=== PATIENT | female | born 1960 | race Caucasian/White ===

== ENCOUNTER → 2016-06-26 | Outpatient (CLI) | payer BC ==
[~2016-06-26] MED LIST: ALBU1AER9 INH; ASPCH81X PO; FLM4 PO; IBUP-103 PO; LSN5 PO; METF-384 PO; MULT-506 PO; OXYC1TAB3 PO; POTA1080 PO; RSTOPS OPB; SIMV-151 PO; ULT50HP PO; ZOLP10TA6 PO
--- NOTE | 2016-06-26 15:33 | DIAGNOSTIC IMAGING REPORT ---
[facility] CLINICAL HISTORY: Ureteral calculus. Recent lithotripsy. COMPARISON STUDY: 12/21/2015 FINDINGS: There is no pathologic bowel dilatation. No urinary tract calculi are visualized. IMPRESSION: No urinary tract calculi are visualized on conventional radiographic imaging Electronically signed by: Reno Quevedo M.D. 06/26/2016 3:31 PM Dictated Date/Time: 06/26/2016 3:30 PM
== END | disposition home or self-care (01) ==
LOC: C.RAD 15:10
PROVIDERS: ATTEND Urology
DX: N20.1 Calculus of ureter (principal)

== ENCOUNTER → 2017-06-26 | Outpatient (CLI) | payer OTHER ==
--- NOTE | 2017-06-26 13:44 | DIAGNOSTIC IMAGING REPORT ---
KUB CLINICAL HISTORY: N20.0 [id number] Ureteral calculus, right COMPARISON STUDY: 06/26/2016 FINDINGS: There is no pathologic bowel dilatation. No urinary tract calculi are visualized on conventional radiographic imaging. IMPRESSION: No urinary tract calculi are visualized. Electronically signed by: Reno Quevedo M.D. 06/26/2017 1:42 PM Dictated Date/Time: 06/26/2017 1:42 PM
== END | disposition home or self-care (01) ==
LOC: C.RAD 13:22
PROVIDERS: ATTEND Urology
DX: N20.2 Calculus of kidney with calculus of ureter (principal)

== ENCOUNTER 2018-07-25 05:47 | Inpatient (IN) ==
--- NOTE | 2018-07-11 12:27 | PAT Medication Instructions ---
Medication Instructions Date of Service July 11, 2018 Home Medications albuterol sulfate [ProAir HFA] 2 puff INHALATION QID PRN aspirin 81 mg PO DAILY buspirone 10 mg PO BID ibuprofen [Advil] 200 mg PO DIRECTED PRN multivitamin 1 tab PO DAILY omega 2-lzy-xye-fish oil [Fish Oil] 1,000 mg PO DAILY simvastatin 20 mg PO HS tramadol 50 mg PO Q6H PRN zolpidem 10 mg PO HS alendronate [Fosamax] 70 mg PO WK calcium citrate-vitamin D3 [Calcium Citrate + D] 1 tab PO DAILY fluticasone propionate 2 spray INTRANASAL DAILY PRN lisinopril 5 mg PO QAM metformin 500 mg PO BID metoprolol succinate 50 mg PO HS omeprazole 40 mg PO QAM peg 400-propylene glycol (PF) [Systane (PF)] 1 drp OPHTHALMIC (EYE) BID PRN ranitidine HCl 300 mg PO HS ASK your surgeon for instructions ibuprofen [Advil] 200 mg PO DIRECTED PRN STOP taking 2 weeks before surgery (or as soon as possible if surgery is within 2 weeks) omega 5-jry-nfb-fish oil [Fish Oil] 1,000 mg PO DAILY DO NOT take the morning of surgery multivitamin 1 tab PO DAILY alendronate [Fosamax] 70 mg PO WK calcium citrate-vitamin D3 [Calcium Citrate + D] 1 tab PO DAILY lisinopril 5 mg PO QAM metformin 500 mg PO BID Take morning of surgery With a small sip of water, OTHERWISE NOTHING TO EAT OR DRINK AFTER MIDNIGHT: albuterol sulfate [ProAir HFA] 2 puff INHALATION QID PRN (use if needed; please bring with you to hospital day of surgery if possible) aspirin 81 mg PO DAILY buspirone 10 mg PO BID tramadol 50 mg PO Q6H PRN (okay to take up to 4 hours prior to surgery if needed) fluticasone propionate 2 spray INTRANASAL DAILY PRN (if needed) omeprazole 40 mg PO QAM peg 400-propylene glycol (PF) [Systane (PF)] 1 drp OPHTHALMIC (EYE) BID PRN (if needed) Take evening before surgery albuterol sulfate [ProAir HFA] 2 puff INHALATION QID PRN (if needed) buspirone 10 mg PO BID simvastatin 20 mg PO HS tramadol 50 mg PO Q6H PRN (if needed) zolpidem 10 mg PO HS metformin 500 mg PO BID metoprolol succinate 50 mg PO HS peg 400-propylene glycol (PF) [Systane (PF)] 1 drp OPHTHALMIC (EYE) BID PRN (if needed) ranitidine HCl 300 mg PO HS Other Notes If you have any questions please call us at [phone] or [phone] or [phone] or [phone]
--- NOTE | 2018-07-12 09:11 | Anesthesiology Consultation ---
Date of Service July 12, 2018 Assessment & Plan (1) Encounter for pre-operative examination: - Check BSG AM DOS - Cardio: 04/05/18: hx sinus tachy and sensed palpitations. Beta jazzy dose in creased. F/U 6 months recommended. - PCP: 07/13/18: "Patient acceptable risk for planned procedure." Chart Review Chart Review: Acceptable Risk for Surgery and Patient seen in Pre Admission Testing History Surgery Operation Date: 07/25/18 11:25 Proposed Procedures p L4-L5 Decompression and Fusion, Spinal Cord Monitoring - Delvin Melo, Height/Weight Height: 4 ft 9 in Weight: 63 kg Allergies Allergy/AdvReac Type Severity Reaction Status Date / Time hydrocodone Allergy Intermediate HIVES Verified 07/10/18 08:47 levofloxacin Allergy Intermediate Hives Verified 07/10/18 08:47 Medications Home Medications Medication Instructions Recorded Confirmed Last Taken albuterol sulfate [ProAir HFA] 2 puff INHALATION QID PRN 02/26/18 07/10/18 Unknown aspirin 81 mg PO DAILY 02/26/18 07/10/18 Unknown buspirone 10 mg PO BID 02/26/18 07/10/18 Unknown ibuprofen [Advil] 200 mg PO DIRECTED PRN 02/26/18 07/10/18 Unknown multivitamin 1 tab PO DAILY 02/26/18 07/10/18 Unknown omega 9-ict-vsq-fish oil [Fish Oil] 1,000 mg PO DAILY 02/26/18 07/10/18 Unknown simvastatin 20 mg PO HS 02/26/18 07/10/18 Unknown tramadol 50 mg PO Q6H PRN 02/26/18 07/10/18 Unknown zolpidem 10 mg PO HS 02/26/18 07/10/18 Unknown alendronate [Fosamax] 70 mg PO WK 07/10/18 07/10/18 Unknown calcium citrate-vitamin D3 1 tab PO DAILY 07/10/18 07/10/18 Unknown [Calcium Citrate + D] fluticasone propionate 2 spray INTRANASAL DAILY PRN 07/10/18 07/10/18 Unknown lisinopril 5 mg PO QAM 07/10/18 07/10/18 Unknown metformin 500 mg PO BID 07/10/18 07/10/18 Unknown metoprolol succinate 50 mg PO HS 07/10/18 07/10/18 Unknown omeprazole 40 mg PO QAM 07/10/18 07/10/18 Unknown peg 400-propylene glycol (PF) 1 drp OPHTHALMIC (EYE) BID PRN 07/10/18 07/10/18 Unknown [Systane (PF)] ranitidine HCl 300 mg PO HS 07/10/18 07/10/18 Unknown Past Medical History Medical History Obstructive sleep apnea CPAP Anxiety Asthma Degenerative disc disease Diabetes mellitus, type 2 NIDDM Dry eye syndrome GERD (gastroesophageal reflux disease) CONTROLLED History of positive PPD S/P [place] 1995/NEGATIVE SUBSEQUENT CXR'S Hypertension Kidney stones Peripheral neuropathy Tachycardia CONTROLLED ON METOPROLOL Exercise / Class Metabolic Activity III < 4 Walking/Shop/Light housework Past Family History Family History Grandmother (Maternal) Diabetes Other Hypertension Past Surgical History Surgical History History of foot surgery LEFT History of hernia repair History of lithotripsy History of carpal tunnel surgery LEFT History of tonsillectomy H/O hysterectomy with oophorectomy History of colonoscopy History of cystoscopy WITH STENT INSERTION History of esophagogastroduodenoscopy (EGD) History of nasal septoplasty History of tooth extraction Past Anesthesia History No Hx of Anesthesia Complications and No Family Hx of Anesthesia Complications History of PONV No Hx of PONV and Hx of Motion Sickness Social History Smoking Status: Never smoker Do You Dip or Chew Tobacco: No Hx Alcohol Use: No Hx Substance Use: No substance use type: does not use Review of Systems Patient denies chest pain, shortness of breath, cough, wheezing, palpitations. Physical Exam Vital Signs VITALS BP 100/64 P 80 TEMP 97.6 SP02 97%RA RESP 16 PHYSICAL Full neck and c-spine range of motion. Full TMJ range of motion. TMD 3 finger breaths Mallampati Score 2 Dentition: intact, veneers on upper front Lungs: clear throughout to auscultation Cardiac: regular rate and rhythm, no murmurs noted Spine: normal Carotid arteries: negative bruit Extremities: no edema Testing Laboratory Results 07/12/18 09:25 07/12/18 09:25 07/12/18 07/12/18 07/12/18 09:00 09:25 09:25 PT 10.0 INR 1.0 APTT 29.3 Hemoglobin A1c Urine Color Yellow Urine Appearance Clear Urine pH 7.0 Ur Specific Kevin 1.006 Urine Protein Negative Urine Glucose (UA) Negative Urine Ketones Negative Urine Nitrite Negative Ur Leukocyte Esterase Negative Blood Type O Positive Antibody Screen NEGATIVE 07/12/18 09:25 PT INR APTT Hemoglobin A1c 6.3 H Urine Color Urine Appearance Urine pH Ur Specific Kevin Urine Protein Urine Glucose (UA) Urine Ketones Urine Nitrite Ur Leukocyte Esterase Blood Type Antibody Screen Electrocardiogram Date: 02/26/18 Findings: + NSR @ (81) Other Testing Chest CTA: 02/26/18: Small bilateral Bochdalek hernias. Minimal subsegmental atelectasis/scarring about the inferior segment lingula. No acute intrathoracic abnormality identified, specifically no acute aortic pathology or evidence of pulmonary thromboembolic disease. No adenopathy or focal airspace consolidation to suggest pneumonia.
[2018-07-12 10:00] LABS: Basophils # (auto) 0.05 K/uL (0-0.2); Basophils % (auto) 0.6 %; Eosinophils # (auto) 0.41 K/uL (0-0.5); Eosinophils % (auto) 4.8 %; Hematocrit (blood only) 39.9 % (37-47); Hemoglobin 13.3 g/dL (12.0-16.0); Immature Granulocytes # (auto) 0.03 K/uL (0.00-0.02); Immature Granulocytes % (auto) 0.4 %; Lymphocytes # (auto) 2.23 K/uL (1.2-3.4); Mean Corpuscular Hgb Conc 33.3 g/dL (32-36); Mean Corpuscular Volume 88.7 fL (80-100); Mean Platelet Volume 9.7 fL (7.4-10.4); Monocytes # (auto) 0.45 K/uL (0.11-0.59); Monocytes % (auto) 5.3 %; Neutrophils % (auto) 62.9 %; Platelet Count 337 K/uL (130-400); RDW Coefficient of Variation 14.8 % (11.5-14.5); RDW Standard Deviation 47.9 fL (36.4-46.3); White Blood Count 8.57 K/uL (4.8-10.8)
[2018-07-12 10:07] LABS: BUN Creatinine Ratio 23.2 (10-20); Calcium 9.5 mg/dl (8.5-10.1); Creatinine Clr Calc Pharmacy 73.8 ml/min; Est GFR (Non-African American) 99.2; Potassium 4.3 mmol/L (3.5-5.1)
[2018-07-12 10:12] LABS: Appearance Urine Clear (Clear); Bilirubin Urine Negative (Negative); Blood Urine Negative (Negative); Color Urine Yellow; Glucose Urine UA Negative (Negative); Ketones Urine Negative (Negative); Leukocyte Esterase Urine Negative (Negative); Nitrite Urine Negative (Negative); Protein Urine Negative (Negative); Specific Gravity Urine 1.006 (1.000-1.030); Urobilinogen Urine Negative (Negative)
[2018-07-12 10:15] LABS: Estimated Average Glucose 134 mg/dl; Hemoglobin A1C 6.3 % (4.5-5.6)
[2018-07-12 10:18] LABS: Partial Thromboplastin Ratio 1.1; Partial Thromboplastin Time 29.3 Seconds (21.0-31.0)
[2018-07-25] MEDS ORDERED: CeleBREX 200 MG CAP PO SCH (06:00)
[2018-07-25] MEDS ORDERED: ACETAMINOPHEN 500 MG TAB PO SCH (06:00)
[2018-07-25] MEDS ORDERED: CEFAZOLIN 1000MG 1,000 MG/7.5 ML SYR IV SCH (06:00)
[2018-07-25] MEDS ORDERED: LR 15ML/HR IV SCH (06:00)
[2018-07-25] MEDS ORDERED: GABAPENTIN 300 MG x 2 PO SCH (06:00)
[2018-07-25] MEDS ORDERED: MIDAZOLAM HCL 1 MG/ML 2ML VIAL ONE (06:45)
[2018-07-25] MEDS ORDERED: fentaNYL citrate 100 MCG/2 ML VIAL ONE ×6 (06:45→10:07)
[2018-07-25] MEDS ORDERED: BACITRACIN INJ 50,000 UNIT VIAL ONE (07:09)
[2018-07-25] MEDS ORDERED: BUPIVACAINE/EPINEPHRINE 0.5% MPF 1:200,000 30 ML VIAL ONE (07:09)
--- NOTE | 2018-07-25 07:31 | History & Physical Bridge Note ---
Date of Service July 25, 2018 History & Physical Bridge Note I have examined the patient, reviewed the History & Physical and in the interval since the performance of the History & Physical I have noted the following changes of clinical significance: no changes noted
--- NOTE | 2018-07-25 07:32 | History & Physical Report ---
Date of Service July 25, 2018 Assessment & Plan (1) Spinal stenosis, lumbar region with neurogenic claudication: L4-L5 decompression and fusion Present on Admission?: Yes History of Present Illness Chief Complaint: Back and leg pain Primary Care Provider: Marco Rodriguez MD This is a 58-year-old female with chronic persistent back and leg pain. After failing extensive course of nonoperative care is here for surgical intervention. Allergies Allergy/AdvReac Type Severity Reaction Status Date / Time hydrocodone Allergy Intermediate HIVES Verified 07/25/18 06:26 levofloxacin Allergy Intermediate Hives Verified 07/25/18 06:26 Home Medications Home Medications Medication Instructions Recorded Confirmed Type albuterol sulfate [ProAir HFA] 2 puff INHALATION QID PRN 02/26/18 07/25/18 History aspirin 81 mg PO DAILY 02/26/18 07/25/18 History buspirone 10 mg PO BID 02/26/18 07/25/18 History ibuprofen [Advil] 200 mg PO DIRECTED PRN 02/26/18 07/25/18 History multivitamin 1 tab PO DAILY 02/26/18 07/10/18 History omega 0-cbs-kkw-fish oil [Fish Oil] 1,000 mg PO DAILY 02/26/18 07/10/18 History simvastatin 20 mg PO HS 02/26/18 07/25/18 History tramadol 50 mg PO Q6H PRN 02/26/18 07/25/18 History zolpidem 10 mg PO HS 02/26/18 07/25/18 History alendronate [Fosamax] 70 mg PO WK 07/10/18 07/10/18 History calcium citrate-vitamin D3 1 tab PO DAILY 07/10/18 07/10/18 History [Calcium Citrate + D] fluticasone propionate 2 spray INTRANASAL DAILY PRN 07/10/18 07/25/18 History lisinopril 5 mg PO QAM 07/10/18 07/25/18 History metformin 500 mg PO BID 07/10/18 07/25/18 History metoprolol succinate 50 mg PO HS 07/10/18 07/25/18 History omeprazole 40 mg PO QAM 07/10/18 07/25/18 History peg 400-propylene glycol (PF) 1 drp OPHTHALMIC (EYE) BID PRN 07/10/18 07/25/18 History [Systane (PF)] ranitidine HCl 300 mg PO HS 07/10/18 07/25/18 History Past Med/Surg History Medical History Obstructive sleep apnea CPAP Anxiety Asthma Degenerative disc disease Diabetes mellitus, type 2 NIDDM Dry eye syndrome GERD (gastroesophageal reflux disease) CONTROLLED History of positive PPD S/P [place] 1995/NEGATIVE SUBSEQUENT CXR'S Hypertension Kidney stones Peripheral neuropathy Tachycardia CONTROLLED ON METOPROLOL Surgical History History of foot surgery LEFT History of hernia repair History of lithotripsy History of carpal tunnel surgery LEFT History of tonsillectomy H/O hysterectomy with oophorectomy History of colonoscopy History of cystoscopy WITH STENT INSERTION History of esophagogastroduodenoscopy (EGD) History of nasal septoplasty History of tooth extraction Family History Grandmother (Maternal) Diabetes Other Hypertension Social History Preferred Language: German Communication Ability: Effective Rock Crusher Required: No Beliefs That Will Affect Care: None Current Living Situation: Alone Other Information That Helps Us Care for You: No Feels Safe at Home: Yes Safety Concerns: Feels Safe At This Time Smoking Status: Never smoker Do You Dip or Chew Tobacco: No Second Hand Exposure: No Tobacco Cessation Education Requested by Patient: No Hx Alcohol Use: No Hx Substance Use: No Physical Exam Vital Signs (Past 24 Hours): Last Vital Signs Temp 36.8 C 07/25/18 06:15 Pulse 98 H 07/25/18 06:15 Resp 18 07/25/18 06:15 BP 139/84 07/25/18 06:15 Pulse Ox 97 07/25/18 06:15 Physical Exam: Patient is alert and oriented neurologically intact.
[2018-07-25] MEDS ORDERED: HYDROmorphone INJ 2 MG/ML SYR/VIAL ONE (08:03)
[2018-07-25] MEDS ORDERED: PROPOFOL IV EMULSION 10 MG/ML 20 ML VIAL IV ONE (08:05)
[2018-07-25] MEDS ORDERED: NEOSTIGMINE METHYLSULFATE 1 MG/ML 10ML VIAL ONE (08:05)
[2018-07-25] MEDS ORDERED: DEXAMETHASONE SOD INJ 4 MG/ML VIAL ONE (08:05)
[2018-07-25] MEDS ORDERED: LIDOCAINE HCL 2% 2 ML VIAL/AMP(20MG/ML) INFIL ONE (08:05)
[2018-07-25] MEDS ORDERED: ONDANSETRON INJ 2 MG/ML 2 ML VIAL ONE (08:05)
[2018-07-25] MEDS ORDERED: GLYCOPYRROLATE 0.2 MG/ML VIAL ONE (08:05)
[2018-07-25] MEDS ORDERED: ROCURONIUM BROMIDE 10 MG/ML 5 ML VIAL ONE (08:05)
[2018-07-25] MEDS ORDERED: LARYING-O-JET KIT (LTA) ONE (08:47)
[2018-07-25] MEDS ORDERED: KETOROLAC 30 MG/ML VIAL ONE ×2 (08:47→09:12)
[2018-07-25] MEDS ORDERED: PHENYLEPHRINE 100MCG/ML 5ML SYR ONE (08:47)
[2018-07-25] MEDS ORDERED: FLOSEAL HEMOSTATIC MATRIX 10ML TOP ONE (09:03)
--- NOTE | 2018-07-25 09:12 | Operative Report ---
Post Operative Report Pre & Post Diagnosis Operation Date: 07/25/18 07:45 Pre-Op Diagnosis: Spinal Stenosis with Neurogenic Claudication Spondylolisthesis L4-5 Post-Op Diagnosis: Same Procedure Operation Date: 07/25/18 07:45 Actual Procedures #1 lumbar decompression with bilateral medial facetectomies and foraminotomies L3-4 L4-5 per #2 posterior spinal fusion L4-5. #3 placement posterior instrumentation L4-5 per #4 interbody fusion L4-5 per #5 placement of peek cage 11 x 22 mm at L4-5 per #6 placement of local autograft in the posterior lateral gutters per #7 placement infuse collagen sponge, mass graft in the posterior lateral gutters and ostial amp and interbody space. Surgeon Delvin Melo DO Lorry Weigher Ana Simpson Estimated Blood Loss 75 Findings Consistent with Post-Op Diagnosis Specimens None Indications This is a 58-year-old female who presents with significant back and bilateral leg pain. After failing extensive course of nonoperative care like to undergo the above-mentioned procedure. Description of Procedure Patient was met with identified and informed consent obtained. She was then taken to the operative suite underwent intubation placed in a prone position on the Bhavik table on top of the Hood frame. All bony prominences well-padded eyes inspected to ensure no external pressure placed upon the peer at this point the lumbar spine was prepped and draped in the normal sterile fashion. Sharp dissection with the assistance of Bovie cautery was performed down to and exposing the lamina and transverse processes of L4 and L5 bilaterally. From a caudal cephalad fashion complete laminectomy of L4 partial laminectomy of L3 was performed including bilateral medial facetectomies and foraminotomies addressing severe stenosis. Obvious instability was also noted. Pedicle screws were then placed in L4 and L5 bilaterally with assistance of fluoroscopy and appropriately size laura placed. By way of a transforaminal approach and left complete discectomy was performed endplates curetted to subcortical bleeding bone and a 11 x 22 mm peek cage filled with osteo-amp bone graft tapped in position. Rods were then compressed locked in final position bilaterally. The transverse processes of L4 and L5 bur to subcortical bleeding bone. Infuse collagen sponge master graft local autograft placed in the posterior lateral gutters. 15 round ENRRIQUE drain inserted. The incision was then closed with 1 Vicryl fascia 2-0 Vicryl substantially for Monocryl for final skin closure. Steri-Strips dressings placed. Patient then awakened taken to PACU stable condition. Please note Ana Simpson present throughout the entire procedure involved in patient positioning complex portions of the surgery and final skin closure. Lastly spinal cord monitoring was utilized throughout the procedure and no changes were noted. I attest to the content of the Intraoperative Record and any orders documented therein. Any exceptions are noted below.
[2018-07-25] MEDS ORDERED: ONDANSETRON INJ 2 MG/ML 2 ML VIAL IV PRN ×2 (09:47→11:02)
[2018-07-25] MEDS ORDERED: ePHEDrine sulfate 50 MG/ML AMP IV PRN (09:47)
[2018-07-25] MEDS ORDERED: ATROPINE SULFATE 0.1 MG/ML 10ML SYR IV PRN (09:47)
[2018-07-25] MEDS ORDERED: PROMETHAZINE HCL 6.25 MG in SODIUM CHLORIDE 0.9% 50 ML IV PRN (09:47)
[2018-07-25] MEDS ORDERED: HYDROmorphone INJ 2 MG/ML SYR/VIAL IV PRN (09:47)
[2018-07-25] MEDS: fentaNYL citrate 100 MCG/2 ML VIAL IV PRN ×4 (09:50→10:17)
--- NOTE | 2018-07-25 09:51 | Fluoroscopy Report ---
FL lumbar spine 2-3V CLINICAL HISTORY: 58 years-old Female presenting with L4-L5 DECOMPRESSION AND FUSION WITH POSSIBLE I NTERBODY. TECHNIQUE: 2 fluoroscopic image(s) recorded as part of an intraoperative procedure. COMPARISON: MRI from 12/15/2014 and plain radiograph from 06/22/2018. FINDINGS/IMPRESSION: There has been interval transpedicular screw not fixation of L4-5 with interbody spacer placement and L4 laminectomy. Normal anatomic alignment. Please see surgical report for further details. Fluoroscopy dosage (mGy): 10.30. Fluoroscopy time: 2.4 seconds. Number or time of high level fluoroscopy (HLF), digital spot, or digital subtraction images: 0. Electronically signed by: Jorge Phillips M.D. 07/25/2018 9:50 AM
[2018-07-25] MEDS ORDERED: HYDROmorphone INJ 1 MG/ML SYRINGE ONE (10:14)
[2018-07-25] MEDS ORDERED: LORazepam 0.5 MG/1 ML VIAL IV STA (10:20)
[2018-07-25] MEDS ORDERED: LORazepam 2 MG/4 ML VIAL ONE (10:23)
--- NOTE | 2018-07-25 10:42 | Anesthesiology Progress Note ---
Date of Service July 25, 2018 Anesthesia Post Procedure Vital Signs Vital Signs: Temp Pulse Pulse Resp BP Pulse Ox 07/25/18 10:25 77 13 143/92 H 100 07/25/18 10:15 79 19 150/90 H 100 07/25/18 10:05 72 21 121/102 H 100 07/25/18 09:55 78 16 145/89 H 100 07/25/18 09:45 76 16 143/90 H 99 07/25/18 09:35 80 16 131/80 100 07/25/18 09:27 36.5 C 84 15 133/81 100 07/25/18 06:15 36.8 C 98 H 18 139/84 97 Pain Intensity Medial Back: Pain Intensity: 6 Transfer of Care Handoff Completed per policy Notes Mental Status: alert / awake / arousable Patient Amnestic to Procedure: Yes Nausea / Vomiting: adequately controlled Pain: adequately controlled Airway Patency, RR, SpO2: stable & adequate BP & HR: stable & adequate Hydration State: stable & adequate Anesthetic Complications: no major complications apparent Notes: Patient had complaints of difficulty taking a full breath in PACU. On evaluation, she seemed quite anxious although lungs were clear, SPO2 100% and BP and HR adequate. She responded very well to a small dose of lorazepam and was dispositioned to the floor.
[2018-07-25] MEDS ORDERED: ACETAMINOPHEN 500 MG TAB PO PRN (11:02)
[2018-07-25] MEDS ORDERED: BISACODYL 10 MG SUPP PR PRN (11:02)
[2018-07-25] MEDS ORDERED: LORazepam 0.5 MG TAB PO PRN (11:02)
[2018-07-25] MEDS ORDERED: LORazepam 0.5 MG/1 ML VIAL IV PRN (11:02)
[2018-07-25] MEDS ORDERED: ALUMINUM/MAGNESIUM SUSP 30 ML UDC PO PRN (11:02)
[2018-07-25] MEDS ORDERED: ACETAMINOPHEN 1,000 MG/100 ML VIAL IV PRN (11:02)
[2018-07-25] MEDS ORDERED: FAMOTIDINE 20 MG TAB PO PRN (11:02)
[2018-07-25] MEDS ORDERED: HYDROmorphone INJ 0.5 MG/0.5 ML SYR IV PRN (11:02)
[2018-07-25] MEDS ORDERED: PROMETHAZINE HCL 12.5 MG in SODIUM CHLORIDE 0.9% 50 ML IV PRN (11:02)
[2018-07-25] MEDS ORDERED: DO NOT ADMINISTER FLU VACCINE PRN (11:02)
[2018-07-25] MEDS ORDERED: MAGNESIUM HYDROXIDE SUSP 30 ML UDC PO PRN (11:02)
[2018-07-25] MEDS ORDERED: DO NOT ADMINISTER PNEUMOCOCCAL VACCINE PRN (11:02)
[2018-07-25] MEDS ORDERED: TRAMADOL HCL 50 MG TABLET PO PRN (11:02)
[2018-07-25] MEDS ORDERED: METOCLOPRAMIDE HCL INJ 5 MG/ML 2 ML VIAL IV PRN (11:02)
[2018-07-25] MEDS ORDERED: SOD PHOSPHATE/SOD BIPHOSPHATE ENEMA 132 ML BTL PR PRN (11:02)
[2018-07-25] MEDS ORDERED: ARTIFICIAL TEARS OP PRN (11:30)
[2018-07-25] MEDS: SODIUM CHLORIDE 0.9% 1000ML 1,000 ML IV SCH (15:07)
[2018-07-25] MEDS: CEFAZOLIN 1000MG 1,000 MG/7.5 ML SYR IV SCH (16:37)
[2018-07-25] MEDS: OXYCODONE HCL IR 5 MG TAB (IMMEDIATE RELEASE) PO PRN (18:39)
[2018-07-25] MEDS: DOCUSATE SODIUM/SENNA 50/8.6MG TAB PO SCH (21:07)
[2018-07-25] MEDS: ZOLPIDEM TARTRATE 10 MG TAB PO SCH (21:07)
[2018-07-25] MEDS: METOPROLOL SUCC 50MG EXT REL TAB PO SCH (21:07)
[2018-07-25] MEDS: SIMVASTATIN 20 MG TAB PO SCH (21:08)
[2018-07-26] MEDS: CEFAZOLIN 1000MG 1,000 MG/7.5 ML SYR IV SCH (00:07)
[2018-07-26] MEDS: SODIUM CHLORIDE 0.9% 1000ML 1,000 ML IV SCH (04:02)
[2018-07-26] MEDS: POLYETHYLENE (MIRALAX) 17 GM PACK PO SCH ×3 (06:20→17:57)
[2018-07-26 06:41] LABS: Basophils # (auto) 0.05 K/uL (0-0.2); Basophils % (auto) 0.4 %; Eosinophils # (auto) 0.18 K/uL (0-0.5); Eosinophils % (auto) 1.5 %; Hematocrit (blood only) 31.3 % (37-47); Hemoglobin 10.5 g/dL (12.0-16.0); Immature Granulocytes # (auto) 0.02 K/uL (0.00-0.02); Immature Granulocytes % (auto) 0.2 %; Lymphocytes # (auto) 2.52 K/uL (1.2-3.4); Lymphocytes % (auto) 20.9 %; Mean Corpuscular Hgb Conc 33.5 g/dL (32-36); Mean Corpuscular Volume 88.9 fL (80-100); Mean Platelet Volume 9.2 fL (7.4-10.4); Monocytes # (auto) 0.79 K/uL (0.11-0.59); Monocytes % (auto) 6.6 %; Neutrophils # (auto) 8.47 K/uL (1.4-6.5); Neutrophils % (auto) 70.4 %; Platelet Count 292 K/uL (130-400); RDW Standard Deviation 49.1 fL (36.4-46.3); Red Blood Count 3.52 M/uL (4.2-5.4); White Blood Count 12.03 K/uL (4.8-10.8)
[2018-07-26 07:11] LABS: Creatinine Clr Calc Pharmacy 72.7 ml/min; Est GFR (African American) 113.9; Est GFR (Non-African American) 98.3; Potassium 3.5 mmol/L (3.5-5.1)
[2018-07-26] MEDS: OXYCODONE HCL IR 5 MG TAB (IMMEDIATE RELEASE) PO PRN ×2 (08:10→16:04)
[2018-07-26] MEDS: PANTOprazole 40 MG TAB PO SCH (08:42)
[2018-07-26] MEDS: ASPIRIN 81 MG ECTAB PO SCH (08:42)
[2018-07-26] MEDS: LISINOPRIL 5 MG TAB PO SCH (08:42)
[2018-07-26] MEDS: CALCIUM 600MG + VIT D 400 IU TAB PO SCH (08:42)
[2018-07-26] MEDS: MULTIVITAMIN TAB PO SCH (08:42)
--- NOTE | 2018-07-26 09:55 | Orthopedic Progress Note ---
Date of Service July 26, 2018 Assessment & Plan (1) Spinal stenosis, lumbar region with neurogenic claudication: This time we will continue physical therapy advance her bowel regimen. arranged home health. Hopefully discharge home Monday. Present on Admission?: Yes Subjective Back pain is controlled leg symptoms markedly improved. Physical Exam Physical Exam: Patient is in the chair at the bedside. Is good strength testing. Appears comfortable. Results & Data Vital Signs (Past 12 Hours) Vital Signs Temp Pulse Pulse Pulse Resp BP BP 07/26/18 07:54 36.5 C 88 16 114/70 07/26/18 03:55 36.7 C 93 H 14 117/71 07/25/18 23:43 36.4 C L 76 14 96/58 L 07/25/18 23:42 36.4 C L Pulse Ox 07/26/18 07:54 97 07/26/18 03:55 99 07/25/18 23:43 96 07/25/18 23:42
--- NOTE | 2018-07-26 10:15 | Anesthesiology Progress Note ---
Date of Service July 26, 2018 Anesthesia Post Procedure Vital Signs Vital Signs: Temp Pulse Pulse Pulse Pulse Resp BP 07/26/18 07:54 36.5 C 88 16 114/70 07/26/18 03:55 36.7 C 93 H 14 117/71 07/25/18 23:43 36.4 C L 76 14 07/25/18 23:42 36.4 C L 07/25/18 20:58 81 07/25/18 19:07 36.6 C 82 17 07/25/18 15:30 36.3 C L 81 16 07/25/18 14:11 36.7 C 89 18 07/25/18 12:41 36.4 C L 88 18 07/25/18 11:56 36.4 C L 86 18 07/25/18 11:10 36.4 C L 82 16 07/25/18 10:45 36.4 C L 68 15 07/25/18 10:35 78 13 07/25/18 10:25 77 13 07/25/18 10:15 79 19 BP Pulse Ox 07/26/18 07:54 97 07/26/18 03:55 99 07/25/18 23:43 96/58 L 96 07/25/18 23:42 07/25/18 20:58 103/63 07/25/18 19:07 107/67 99 07/25/18 15:30 120/78 100 07/25/18 14:11 115/75 100 07/25/18 12:41 104/67 97 07/25/18 11:56 99/62 L 99 07/25/18 11:10 138/87 100 07/25/18 10:45 155/80 H 100 07/25/18 10:35 124/85 100 07/25/18 10:25 143/92 H 100 07/25/18 10:15 150/90 H 100 Pain Intensity Medial Back: Pain Intensity: 5 Notes Mental Status: alert / awake / arousable and participated in evaluation Nausea / Vomiting: adequately controlled Pain: adequately controlled Airway Patency, RR, SpO2: stable & adequate BP & HR: stable & adequate Hydration State: stable & adequate
[2018-07-26] MEDS: SIMVASTATIN 20 MG TAB PO SCH (21:50)
[2018-07-26] MEDS: ZOLPIDEM TARTRATE 10 MG TAB PO SCH (21:51)
[2018-07-26] MEDS: METOPROLOL SUCC 50MG EXT REL TAB PO SCH (21:51)
[2018-07-26] MEDS: DOCUSATE SODIUM/SENNA 50/8.6MG TAB PO SCH (21:51)
[2018-07-27] MEDS: POLYETHYLENE (MIRALAX) 17 GM PACK PO SCH ×4 (00:12→19:07)
[2018-07-27] MEDS: LISINOPRIL 5 MG TAB PO SCH (09:37)
[2018-07-27] MEDS: CALCIUM 600MG + VIT D 400 IU TAB PO SCH (09:37)
[2018-07-27] MEDS: ASPIRIN 81 MG ECTAB PO SCH (09:37)
[2018-07-27] MEDS: PANTOprazole 40 MG TAB PO SCH (09:37)
[2018-07-27] MEDS: MULTIVITAMIN TAB PO SCH (09:37)
--- NOTE | 2018-07-27 10:19 | Orthopedic Progress Note ---
Date of Service July 27, 2018 Assessment & Plan (1) Spinal stenosis, lumbar region with neurogenic claudication: Patient is progressing appropriately. ENRRIQUE drain decreasing probably. We will continue physical therapy hopefully discharge home this weekend. Present on Admission?: Yes Subjective Back pain control leg pain improved Physical Exam Physical Exam: PATIENT is standing and ambulating about the room. Is good strength testing appears comfortable. Results & Data Vital Signs (Past 12 Hours) Vital Signs Temp Pulse Pulse Resp BP BP Pulse Ox 07/27/18 06:53 37.2 C 87 18 107/71 98 07/26/18 23:33 36.6 C 99 H 18 102/69 98
[2018-07-27] MEDS: TRAMADOL HCL 50 MG TABLET PO PRN ×2 (10:32→15:38)
[2018-07-27] MEDS: OXYCODONE HCL IR 5 MG TAB (IMMEDIATE RELEASE) PO PRN ×2 (13:26→22:21)
[2018-07-27] MEDS: ZOLPIDEM TARTRATE 10 MG TAB PO SCH (22:20)
[2018-07-27] MEDS: DOCUSATE SODIUM/SENNA 50/8.6MG TAB PO SCH (22:20)
[2018-07-27] MEDS: SIMVASTATIN 20 MG TAB PO SCH (22:21)
[2018-07-27] MEDS: METOPROLOL SUCC 50MG EXT REL TAB PO SCH (22:21)
[2018-07-28] MEDS: POLYETHYLENE (MIRALAX) 17 GM PACK PO SCH ×5 (00:23→23:55)
[2018-07-28] MEDS: PANTOprazole 40 MG TAB PO SCH (08:57)
[2018-07-28] MEDS: MULTIVITAMIN TAB PO SCH (08:57)
[2018-07-28] MEDS: ASPIRIN 81 MG ECTAB PO SCH (08:58)
[2018-07-28] MEDS: CALCIUM 600MG + VIT D 400 IU TAB PO SCH (08:58)
[2018-07-28] MEDS: LISINOPRIL 5 MG TAB PO SCH (08:59)
--- NOTE | 2018-07-28 09:00 | Orthopedic Progress Note ---
Date of Service July 28, 2018 Assessment & Plan (1) Spinal stenosis, lumbar region with neurogenic claudication: This time we will continue physical therapy. We will change her dressing DC drain today. Anticipate discharge home tomorrow. Present on Admission?: Yes Subjective Patient's back pain is controlled leg symptoms markedly improved. Physical Exam Physical Exam: On exam she is ambulating halls with a walker. Good strength testing. Results & Data Vital Signs (Past 12 Hours) Vital Signs Temp Pulse Pulse Resp BP BP Pulse Ox 07/28/18 08:56 92 H 102/70 07/28/18 06:18 36.7 C 85 16 96/62 L 93 07/27/18 23:05 36.7 C 93 H 16 100/64 93 07/27/18 22:18 101 H 112/78
[2018-07-28] MEDS: OXYCODONE HCL IR 5 MG TAB (IMMEDIATE RELEASE) PO PRN ×3 (09:07→22:04)
[2018-07-28] MEDS: TRAMADOL HCL 50 MG TABLET PO PRN ×2 (15:35→23:56)
[2018-07-28] MEDS: DOCUSATE SODIUM/SENNA 50/8.6MG TAB PO SCH (21:59)
[2018-07-28] MEDS: SIMVASTATIN 20 MG TAB PO SCH (22:00)
[2018-07-28] MEDS: METOPROLOL SUCC 50MG EXT REL TAB PO SCH (22:00)
[2018-07-28] MEDS: ZOLPIDEM TARTRATE 10 MG TAB PO SCH (22:04)
[2018-07-29] MEDS: OXYCODONE HCL IR 5 MG TAB (IMMEDIATE RELEASE) PO PRN ×3 (02:01→13:56)
[2018-07-29] MEDS: POLYETHYLENE (MIRALAX) 17 GM PACK PO SCH ×2 (06:31→14:44)
[2018-07-29] MEDS: CALCIUM 600MG + VIT D 400 IU TAB PO SCH (09:16)
[2018-07-29] MEDS: MULTIVITAMIN TAB PO SCH (09:16)
[2018-07-29] MEDS: PANTOprazole 40 MG TAB PO SCH (09:16)
[2018-07-29] MEDS: ASPIRIN 81 MG ECTAB PO SCH (09:17)
[2018-07-29] MEDS: LISINOPRIL 5 MG TAB PO SCH (09:17)
[2018-07-29] MEDS: TRAMADOL HCL 50 MG TABLET PO PRN (09:22)
--- NOTE | 2018-07-29 11:15 | Discharge Summary ---
Date of Service July 29, 2018 Admission HPI Per Admitting Provider This is a 58-year-old female with chronic persistent back and leg pain. After failing extensive course of nonoperative care is here for surgical intervention. Principal Diagnosis Lumbar spinal stenosis with neurogenic claudication Discharge Data Allergies Allergy/AdvReac Type Severity Reaction Status Date / Time hydrocodone Allergy Intermediate HIVES Verified 07/25/18 06:26 levofloxacin Allergy Intermediate Hives Verified 07/25/18 06:26 Consultations 07/25/18 11:02 Consult Case Management - Discharge Planning Routine Procedures Performed Operation Date: 07/25/18 07:45 Actual Procedures p L4-L5 Decompression and Fusion, Spinal Cord Monitoring(Not Applicable) - Delvin Melo DO Ordered Studies 07/25/18 10:25 FL fluoroscopy <1hr Routine FL lumbar spine 2-3V Routine Hospital Course (1) Spinal stenosis, lumbar region with neurogenic claudication: Patient underwent lumbar decompression fusion tolerated this well was taken to the orthopedic for possibly. Postop day 1 is up and ambulating nicely. Progressive postop day #2. Back pain controlled. ENRRIQUE drain decreasing appropriately. Subsequently discharged home. Discharge orders and instructions from the chart for further review. Total Time Total Time Spent Total Time Spent (In Minutes): 20 minutes Discharge Plan Discharge Items Patient Disposition: Home - Self-Care Reason For Visit: Spinal Instabilities, Lumbar Region Discharge Diagnosis: lumbar stenosis Discharge Goals: Improve function Activity: Per 'Additional Instructions' section Non-emergency contact: Primary Care Provider Call non-emergency contact if: you have any medication questions Follow-up/Referrals: Marco Rodriguez MD [Primary Care Provider] - Diet: Regular Addtl Provider Instructions: ACTIVITY RECOMMENDATIONS: SELF CARE INSTRUCTIONS AFTER CERVICAL FUSIONS 1. No smoking. Smoking drastically decreases the chance of a solid fusion. 2. No bending, lifting more than 5 pounds, or twisting (roll like a log when turning in bed). 3. You may shower 3 days after surgery. Thoroughly dry wound. Do not soak in the tub. 4. Cervical collar: Must be worn at all times including sleeping. You may remove the brace only to bath, eat and if you are sitting in a recliner. 5. Please walk as much as you can for exercise. Gradually increase the distance that you walk as your endurance increases. SPECIAL CARE INSTRUCTIONS: VERY IMPORTANT TO READ AND REVIEW A. Do not take any anti-inflammatory medications (i.e. Indocin, Advil, Aspirin, Naprosyn, Aleve, Motrin, etc.) as these may inhibit the chance of a solid fusion. Tylenol is okay to take. B. Your surgical incision has been closed with a cosmetic suture under the skin that will dissolve in about 6 weeks. In 14 days, you can use a pair of clean scissors and cut the suture that is left outside of the skin at the ends of your incision. C. Complications are uncommon, but please contact us if you have any signs or symptoms of: 1. wound infection (fever higher than 102.5 degrees F, redness, separation of wound, drainage, or increasing pain from the incision) 2. blood clots in legs (pain, swelling, redness and warmth in legs) 3. urinary tract infection (fever higher than 102.5 degrees, burning upon urination or increased frequency of urination) 4. nerve problems (inability to walk on your toes or heels, numbness, loss of bowel or bladder control) 5. any other symptoms that concern you. D. Please call the office at if you have any concerns or questions about your operation or recovery. MANAGING PAIN AFTER SPINAL SURGERY 1. Narcotic medication is intended for short-term use and will be provided for surgical pain. Surgical pain usually lasts for a period of 4-6 weeks. Narcotic medication includes Percocet, Vicodin, Darvocet, Tylenol #3 or Lortab. 2. Longer-term pain is more appropriately treated with non-narcotic medication such as Tylenol ES. 3. Muscle spasm is not appropriately treated with narcotics. Muscle relaxers such as Soma, Flexeril or Skelaxin can be used along with Tylenol ES. 4. Remember that we all live with some "aches and pains". This is not unusual or uncommon after an injury or as we get older. 5. We will provide appropriate medication within the normal guidelines of their prescribed use. We will also be very cautious and aware of potential abuse and extended duration of patients' medication needs. 6. Please allow 2-3 days to process refills. Prescriptions will not be mailed but must be picked up at the office. FOLLOW UP VISIT: Keep your scheduled follow-up appointment. Any questions, please call the office at . ACTIVITY RECOMMENDATIONS: SELF CARE INSTRUCTIONS AFTER THORACIC/LUMBAR FUSIONS 1. You may walk to your tolerance. It is good exercise for your legs and back. Expect some back and intermittent leg aches and pains. 2. You may perform "counter-top" level activities (make a sandwich, sarah with a project, etc.). 3. No bending or lifting of more than 10 pounds or back twisting of any nature (roll like a log when turning in bed). 4. You may ride in a car for 20-30 minutes at a time. No driving until after your first visit with your doctor. 5. Frequent changes of position and restricting sitting to 30 minutes at a time will help limit the amount of back spasms and stiffness you may experience. 6. You may discontinue the use of ambulatory aids (cane, crutches, etc.) once your strength and confidence allow. 7. You may logistical engineer the shower and let water strike your incision when you arrive home at least once daily. Do not take a tub bath, sit in a hot tub or go into a swimming pool until after your first recheck in the office. SPECIAL CARE INSTRUCTIONS: VERY IMPORTANT TO READ AND REVIEW A. Your surgical incision has been closed with a cosmetic suture under the skin that will dissolve in about 6 weeks. In 14 days, you can use a pair of clean scissors and cut the suture that is left outside of the skin at the ends of your incision. 1. The small skin tapes can be removed 7 days after surgery if they have not fallen off by that point. 2. You may keep the wound open to air as much as possible to promote healing after post-op day number 5 unless told otherwise by your doctor. 3. If you think the wound looks like it is becoming infected (redness or worsening drainage) and/or you are experiencing fever, chill or worsening back pain and muscle spasms, contact the office so that we may evaluate you as soon as possible. B. Complications are uncommon, but please contact us if you have any signs or symptoms of: 1. wound infection (fever higher than 102.5 degrees F, redness, separation of wound, drainage, or increasing pain from the incision) 2. blood clots in legs (pain, swelling, redness and warmth in legs) 3. urinary tract infection (fever higher than 102.5 degrees F, burning upon urination or increased frequency of urination) 4. nerve problems (inability to walk on your toes or heels, numbness, loss of bowel or bladder control) 5. any other symptoms that concern you C. Please call the office at if you have any concerns or questions about your operation or recovery. D. No smoking! Smoking drastically decreases the chance of a solid fusion. E. Do not take any anti-inflammatory medications (Indocin, Advil, Motrin, Aspirin, Naprosyn, etc.) as these may inhibit the chance of a solid fusion. Tylenol is okay to take for pain. MANAGING PAIN AFTER SPINAL SURGERY 1. Narcotic medication is intended for short-term use and will be provided for surgical pain. Surgical pain usually lasts for a period of 4-6 weeks. Narcotic medication includes Percocet, Vicodin, Darvocet, Tylenol #3 or Lortab. 2. Longer-term pain is more appropriately treated with non-narcotic medication such as Tylenol ES. 3. Muscle spasm is not appropriately treated with narcotics. Muscle relaxers such as Soma, Flexeril or Skelaxin can be used along with Tylenol ES. 4. Remember that we all live with some "aches and pains". This is not unusual or uncommon after an injury or as we get older. a. Back pain is expected and may include muscle spasms for 4 to 6 weeks after surgery. The pain should gradually improve. If the pain worsens for no apparent reason, please contact the office. b. Intermittent leg pain may also be experienced and should not be concerned about unless it worsens for no apparent reason. If so, please contact the office. 5. We will provide appropriate medication within the normal guidelines of their prescribed use. We will also be very cautious and aware of potential abuse and extended duration of patients' medication needs. a. Pain medications are for your comfort and to assist with sleep and rest so that the tissue can heal. They are not provided in order to return to normal activity and should not be used through the day. To do so or worsening pain at night can result from ongoing tissue damage and development of tolerance to the prescribed medicine. 6. Please allow 2-3 days to process refills. Prescriptions will not be mailed but must be picked up at the office. FOLLOW UP VISIT: Keep your scheduled follow-up appointment. Any questions, please call the office at . Prescriptions: New tramadol 50 mg Tablet 50 mg PO Q4H PRN (Reason: Pain, Moderate) Qty: 20 RF: 0 oxycodone 5 mg Tablet 5 mg PO Q4H PRN (Reason: Pain, Severe) Qty: 20 RF: 0 Continued multivitamin Tablet 1 tab PO DAILY RF: 0 tramadol 50 mg Tablet 50 mg PO Q6H PRN (Reason: Pain) RF: 0 simvastatin 20 mg Tablet 20 mg PO HS RF: 0 buspirone 10 mg Tablet 10 mg PO BID RF: 0 aspirin 81 mg Tablet,Chewable 81 mg PO DAILY RF: 0 zolpidem 10 mg Tablet 10 mg PO HS RF: 0 albuterol sulfate [ProAir HFA] 90 mcg/actuation Hfa Aerosol Inhaler 2 puff INHALATION QID PRN (Reason: Shortness Of Breath) RF: 0 omega 0-mdx-nmw-fish oil [Fish Oil] 1,000 mg (120 mg-180 mg) Capsule 1,000 mg PO DAILY RF: 0 metformin 500 mg Tablet 500 mg PO BID RF: 0 metoprolol succinate 50 mg Tablet Extended Release 24 Hr 50 mg PO HS RF: 0 ranitidine HCl 300 mg Tablet 300 mg PO HS RF: 0 alendronate [Fosamax] 70 mg Tablet 70 mg PO WK RF: 0 omeprazole 40 mg Capsule,Delayed Release(Dr/Ec) 40 mg PO QAM RF: 0 lisinopril 5 mg Tablet 5 mg PO QAM RF: 0 fluticasone propionate 50 mcg/actuation [place],Suspension 2 spray INTRANASAL DAILY PRN (Reason: ALLERGY RELIEF) RF: 0 calcium citrate-vitamin D3 [Calcium Citrate + D] 315-200 mg-unit Tablet 1 tab PO DAILY RF: 0 Systane (PF) 0.4-0.3 % Dropperette 1 drp OPHTHALMIC (EYE) BID PRN (Reason: Dry Eyes) RF: 0 Discontinued ibuprofen [Advil] 200 mg Tablet 200 mg PO DIRECTED PRN (Reason: Pain) RF: 0 Stand-Alone Forms: [facility] Discharge Orders: Discharge Order (Routine); Ordered 07/29/18 Ordered By: Delvin Melo Admission Data Admit Date/Time: 07/25/18 09:16 Attending Provider: Delvin Melo Admit Provider: Delvin Melo Primary Care Provider: Marco Rodriguez Service: Surgical Services
== END 2018-07-29 15:21 | disposition home or self-care (01) | DRG 455 ==
LOC: ASU 05:47 → 3E 09:16

== ENCOUNTER 2022-01-15 10:38 | Inpatient (IN) ==
--- NOTE | 2022-01-15 10:56 | Emergency Department Note ---
History of Present Illness General Chief complaint: Rectal Pain Stated complaint: RECTAL PAIN Time Seen by Provider: 01/15/22 10:54 History of Present Illness Maximum Pain Intensity: 10 This 62-year-old female patient presents to the emergency department with her boyfriend for evaluation of rectal pain. She states that she has had rectal pain for the past 1-2 weeks that is progressively getting worse. She rates the pain now as a sharp and 10/10 pain. She states that it feels like something is inside of her rectum causing a lot of pressure. She is having trouble walking, sitting, or sleeping because of the pain. She has had fevers 100.1 F max mostly in the evening at home along with nausea and vomiting as well. She does not notice any external hemorrhoids or swelling and feels like most of the pain is internal. Denies any hematochezia or melena. She has a history of a rectal abscess in the past and the symptoms feel similar. She states that she has been sitting for long periods of time recently and prolonged sitting on a bike caused her last abscess. She took Advil without improvement of the pain. She was a little constipated last week, but has been moving her bowels well since last week. Stools are now soft and 2-3 times a day. Urinating well without any u rinary symptoms. Denies abdominal pain, chest pain, SOB, or URI symptoms. Denies any known injury or trauma. Last colonoscopy about 8 years ago with history of diverticulosis, but no known polyps and was told to have repeat colo in 10 years. Denies family history of colon polyps, colon cancer, UC, or Crohn's disease, but she states her mom had frequent diverticulitis. Home Medications Medication Instructions Recorded Confirmed Type albuterol sulfate 90 mcg/actuation 2 puff inhalation QID PRN 02/26/18 01/15/22 History aerosol inhaler (ProAir HFA) Shortness Of Breath aspirin 81 mg chewable tablet 81 mg PO DAILY 02/26/18 01/15/22 History multivitamin 1 tab PO DAILY 02/26/18 01/15/22 History omega 5-xej-mym-fish oil 1,000 mg 1,000 mg PO DAILY 02/26/18 01/15/22 History (120 mg-180 mg) capsule (Fish Oil) simvastatin 20 mg tablet 20 mg PO HS 02/26/18 01/15/22 History calcium citrate 315 mg-vitamin D3 1 tab PO DAILY 07/10/18 01/15/22 History 5 mcg (200 unit) tablet (Calcium Citrate + D) fluticasone propionate 50 2 spray intranasal DAILY PRN 07/10/18 01/15/22 History mcg/actuation nasal ALLERGY RELIEF spray,suspension lisinopril 5 mg tablet 5 mg PO QAM 07/10/18 01/15/22 History metformin 500 mg tablet 1,000 mg PO BID 07/10/18 01/15/22 History omeprazole 40 mg capsule,delayed 40 mg PO QAM 07/10/18 01/15/22 History release peg 400-propylene glycol (PF) 0.4 1 drp ophthalmic (eye) BID PRN Dry 07/10/18 01/15/22 History %-0.3 % eye drops in a dropperette Eyes (Systane (PF)) buspirone 10 mg tablet 10 mg PO .COMPLEX 01/10/20 01/15/22 History lifitegrast 5 % eye drops in a 1 drp ophthalmic (eye) BID 01/10/20 01/15/22 History dropperette (Xiidra) magnesium oxide 400 mg (241.3 mg 400 mg PO DAILY 01/10/20 01/15/22 History magnesium) tablet metoprolol succinate 50 mg 50 mg PO BID 01/10/20 01/15/22 History tablet,extended release 24 hr riboflavin (vitamin B2) 400 mg 400 mg PO DAILY 01/10/20 01/15/22 History tablet Allergies Allergy/AdvReac Type Severity Reaction Status Date / Time hydrocodone Allergy Intermediate HIVES Verified 01/15/22 12:52 levofloxacin Allergy Intermediate Hives Verified 01/15/22 12:52 Past Med/Surg History Medical History (Updated 01/15/22 @ 15:52 by Angelica Alvarez PA-C) Allergic rhinitis due to pollen Anxiety Asthma Degenerative disc disease Diabetes mellitus, type 2 NIDDM Dry eye syndrome GERD (gastroesophageal reflux disease) CONTROLLED History of positive PPD S/P TX 1995/NEGATIVE SUBSEQUENT CXR'S Hyperlipidemia Hypertension Kidney stones Obstructive sleep apnea CPAP Osteoporosis Peripheral neuropathy Tachycardia CONTROLLED ON METOPROLOL Surgical History (Updated 01/15/22 @ 14:16 by Trish Jimenez DO) H/O foot surgery H/O hysterectomy with oophorectomy H/O lithotripsy History of colonoscopy History of cystoscopy WITH STENT INSERTION History of esophagogastroduodenoscopy (EGD) History of lumbar fusion L4-5 2018 [place] History of nasal septoplasty History of tonsillectomy History of tooth extraction S/P hernia surgery Family History Grandmother (Maternal) Diabetes Hypertension Mother Hypertension Septicemia Social History Smoking Status: Never smoker Second Hand Exposure: No; Hx Alcohol Use: No Hx Substance Use: No Preferred Language: Welsh Communication Ability: Effective Mineral Technologist Required: No Beliefs That Will Affect Care: None Current Living Situation: Alone Feels Safe at Home: Yes Assistive Devices: Walker Review of Systems See HPI for pertinent positives & negatives. and A total of 10 systems reviewed and were otherwise negative Physical Exam Vital Signs Vital Signs - 24 hr 01/15/22 10:49 01/15/22 11:48 01/15/22 11:50 Temperature 37.1 C Temperature Source Oral Pulse Rate 117 H 93 H 93 H Respiratory Rate 18 27 H 17 Blood Pressure 135/84 122/81 Blood Pressure Mean 101 94 Pulse Oximetry 94 Oxygen Delivery Method Room Air Sepsis Recent Fever Within 48 Hours No Sepsis New/Unexplained Change in Mental Status No Sepsis Action Taken by Nursing No Action Required 01/15/22 12:00 01/15/22 12:21 01/15/22 12:21 Temperature Temperature Source Pulse Rate 86 92 H Respiratory Rate 16 26 H Blood Pressure 121/66 Blood Pressure Mean 84 Pulse Oximetry Oxygen Delivery Method Sepsis Recent Fever Within 48 Hours Sepsis New/Unexplained Change in Mental Status Sepsis Action Taken by Nursing 01/15/22 12:30 01/15/22 12:30 01/15/22 13:00 Temperature Temperature Source Pulse Rate 85 Respiratory Rate 24 Blood Pressure 105/60 99/67 L Blood Pressure Mean 75 77 Pulse Oximetry Oxygen Delivery Method Sepsis Recent Fever Within 48 Hours Sepsis New/Unexplained Change in Mental Status Sepsis Action Taken by Nursing 01/15/22 13:00 01/15/22 13:30 01/15/22 13:30 Temperature Temperature Source Pulse Rate 82 90 Respiratory Rate 16 15 Blood Pressure 118/74 Blood Pressure Mean 88 Pulse Oximetry Oxygen Delivery Method Sepsis Recent Fever Within 48 Hours Sepsis New/Unexplained Change in Mental Status Sepsis Action Taken by Nursing 01/15/22 14:00 01/15/22 14:00 Temperature Temperature Source Pulse Rate 90 Respiratory Rate 24 Blood Pressure 120/76 Blood Pressure Mean 90 Pulse Oximetry 99 Oxygen Delivery Method Sepsis Recent Fever Within 48 Hours Sepsis New/Unexplained Change in Mental Status Sepsis Action Taken by Nursing VITALS: Vitals are noted on the nurse's note and reviewed by myself. GENERAL: 62-year-old female, in no acute distress, non-diaphoretic, well- developed well-nourished. SKIN: See rectal exam. Capillary refill <2 sec. No tenting of the skin. HEAD: Normocephalic, atraumatic. EYES: PERRLA. EOMI. Conjunctivae without injection, sclerae without icterus. NOSE: Patent without discharge. MOUTH: Mucous membranes moist. Uvula midline. Airway patent. NECK: Supple without nuchal rigidity. HEART: Regular rate and rhythm without murmurs gallops or rubs. LUNGS: Clear to auscultation bilaterally without wheezes, rales or rhonchi. No retractions or accessory muscle use. ABDOMEN: Positive bowel sounds x 4. Normal tympanic percussion. Soft, mildly tender to palpation in the suprapubic area, without masses or organomegaly. Miranda sign negative. No guarding or rebound tenderness. No focal RLQ or LLQ tenderness. RECTAL EXAM: Permission to perform the exam. Her boyfriend was present for exam. There is minimal erythema to the left buttocks near the rectum, but no obvious fluctuance, pointing, induration, or discharge. No other external lesions noted. No pilonidal abscess noted. No external hemorrhoids. Normal sphincter tone. There is an enlarged fluctuant area to the left side of the rectum on internal exam about the size of a grape that is tender to palpation. Difficult to determine whether this is an enlarged hemorrhoid or if it is a rectal abscess. No other masses, tears, fistulas, or fissures noted. Stool is brown and Hemoccult negative. MUSCULOSKELETAL: No gross musculoskeletal defects. NEURO: Patient was alert and oriented to person place and time. No focal neurological deficits. Course Administered Medications Discontinued Medications Sodium Chloride (Nss) 500 mls @ 999 mls/hr IV .Q31M ONE Stop: 01/15/22 11:38 Last Infusion: 01/15/22 11:44 Dose: 0 mls/hr Documented By: Admin: 01/15/22 11:24 Dose: 999 mls/hr Documented By: LANRE Piperacillin Sod/Tazobactam Sod (Zosyn) 4.5 gm in 120 mls @ 240 mls/hr IV NOW ONE Stop: 01/15/22 14:41 Last Infusion: 01/15/22 15:05 Dose: 0 mls/hr Documented By: Admin: 01/15/22 14:35 Dose: 240 mls/hr Documented By: LANRE Famotidine (Pepcid 20mg Iv Push) 20 mg in 5 mls @ 2.5 mls/min IV NOW STA Stop: 01/15/22 17:05 Last Admin: 01/15/22 17:23 Dose: 2.5 mls/min Documented By: LANRE Ioversol (Optiray 350 100ml) 88 ml IV ONCE ONE Stop: 01/15/22 12:14 Last Admin: 01/15/22 12:14 Dose: 88 ml Documented By: GABBI Ketorolac Tromethamine (Ketorolac Tromethamine 15 Mg/Ml Vial) 10 mg IV NOW ONE Stop: 01/15/22 11:09 Last Admin: 01/15/22 11:26 Dose: 10 mg Documented By: LANRE Morphine Sulfate (Morphine Sulfate 4 Mg/Ml 1 Ml Carp\Vial) 4 mg IV NOW STA Stop: 01/15/22 13:46 Last Admin: 01/15/22 14:04 Dose: 4 mg Documented By: AM Ondansetron HCl (Ondansetron Inj 2 Mg/Ml 2 Ml Vial) 4 mg IV NOW STA Stop: 01/15/22 13:46 Last Admin: 01/15/22 14:03 Dose: 4 mg Documented By: AM Potassium Chloride (Potassium Chloride Crtab 20 Meq Tabcr) 40 meq PO NOW STA Stop: 01/15/22 15:12 Last Admin: 01/15/22 15:21 Dose: 40 meq Documented By: LANRE Medical Decision Making Differential Diagnosis Differential diagnosis includes cellulitis, rectal abscess, perirectal abscess, enlarged hemorrhoid, diverticulitis, or others. Laboratory Data Attestation: I reviewed the patient's lab results. Result diagrams: 01/15/22 11:20 01/15/22 11:20 Lab Results 01/15/22 01/15/22 01/15/22 Range/Units 11:20 11:20 14:15 WBC 14.53 H (4.8-10.8) K/ul RBC 4.20 (3.93-5.22) M/uL Hgb 12.3 (12.0-16.0) g/dl Hct 36.0 (34.1-44.9) % MCV 85.7 (80.0-100.0) fL MCH 29.3 (25.0-34.0) pg MCHC 34.2 (32.0-36.0) g/dL RDW Std Deviation 45.7 (36.4-46.3) fL RDW Coeff of Maryann 14.6 H (11.5-14.5) % Plt Count 373 (130-400) K/uL MPV 9.6 (9.4-12.3) fL Immature Gran % (Auto) 0.8 % Neut % (Auto) 71.4 % Lymph % (Auto) 19.4 % [place] % (Auto) 5.3 % Eos % (Auto) 2.4 % Baso % (Auto) 0.7 % Neut # (Auto) 10.37 H (1.4-6.5) K/uL Lymph # (Auto) 2.82 (1.2-3.4) K/uL [place] # (Auto) 0.77 (0.24-0.82) K/uL Eos # (Auto) 0.35 (0-0.50) K/uL Baso # (Auto) 0.10 (0-0.2) K/uL Immature Gran # (Auto) 0.12 H (0.00-0.02) K/uL Sodium 133 L (136-145) mmol/L Potassium 3.7 (3.5-5.1) mmol/L Chloride 100 (98-107) mmol/L Carbon Dioxide 23 (21-32) mmol/L Anion Gap 10 (3-11) BUN 9 (6-23) mg/dl Creatinine 0.60 (0.6-1.2) mg/dl Est Cr Clr Drug Dosing Not Reportable Est GFR ( Amer) 114.8 ml/min Est GFR (Non-Af Amer) 99.1 ml/min BUN/Creatinine Ratio 15.0 (10-20) Glucose 128 H (70-99(Fasting)) mg/dl Calcium 9.6 (8.5-10.1) mg/dl Total Bilirubin 0.9 (0.2-1.0) mg/dl AST 16 (13-39) U/L ALT 21 (7-52) U/L Alkaline Phosphatase 118 H (34-104) U/L Total Protein 7.2 (6.0-8.3) gm/dl Albumin 4.4 (3.4-5.0) gm/dl Globulin 2.8 (2.5-4.0) gm/dl Albumin/Globulin Ratio 1.6 (0.9-2) SARS-CoV-2, RNA, NAAT NEGATIVE (NEGATIVE) Imaging Data Radiologist's Impression: Pelvis CT 01/15/22 11:08 CT SCAN OF THE PELVIS WITH IV CONTRAST CLINICAL HISTORY: Rectal pain and swelling. Reported history of perianal abscess. COMPARISON STUDY: Pelvic CT dated 02/26/2018. TECHNIQUE: Following the IV administration of 88 cc of Optiray 350, CT scan of the pelvis is performed from the pelvic inlet to the proximal femora. Images reviewed in the axial, sagittal, and coronal planes. IV contrast was administered without complication. A dose lowering technique was utilized adhering to the principles of ALARA. CT DOSE: 372.13 mGy.cm FINDINGS: The bladder is distended but otherwise normal in appearance. The uterus is surgically absent. No adnexal lesion is seen. There is no pelvic sidewall or inguinal lymphadenopathy. The imaged loops of small bowel and colon show no evidence of obstruction. There is mild diverticulosis of the imaged colon without CT evidence of acute diverticulitis. A normal appendix is seen in the right lower quadrant. No intraperitoneal free air or free fluid is seen in the pelvis. There is evidence of previous ventral hernia repair. There is inflammation around the perianal soft tissues, greatest posteriorly. There is a thick-walled peripherally enhancing perianal fluid collection seen posteriorly at the 12:00 position. This measures 3.0 x 3.1 x 2.0 cm in aggregate dimension as seen on axial image #555. This is located just below the levator musculature. The skeletal structures appear intact. No lytic or blastic lesion is seen. The regional musculature is normal and symmetric. IMPRESSION: There is a 3.1 cm perianal abscess at the 12:00 position with surrounding cellulitis as detailed above. ACT 112: Negative or not required by law. Electronically signed by: David Cote M.D. 01/15/2022 1:45 PM MDM Narrative I examined the patient. Rectal exam showed mild erythema to the left buttocks near the rectum, but no obvious external abscess or infection. She does have an enlarged fluctuant area to the left side of the rectum on internal exam that is difficult to determine whether it is a true abscess or just an enlarged hemorrhoid. Hemoccult was negative. An IV lock was placed and labs were drawn. She was given normal saline solution 500 mL bolus. She was given Toradol 10 mg IV for pain. But continued with pain. The patient states that hydrocodone is listed in her medication allergies, but she is not sure she is actually truly allergic to it because she had a reaction at the same time she had levofloxacin. She has had morphine in the past without problems. She was then given morphine 4 mg IV and Zofran 4 mg IV for additional pain relief. White blood cell count elevated at 14.53. Sodium 133, glucose 128, alk phos 118. COVID was negative. CT scan of the pelvis with IV contrast showed a 3.1 cm perianal abscess at the 12 o'clock position with surrounding cellulitis. I spoke with Dr. Watkins of surgery who felt the patient's abscess might still be small enough to respond to IV antibiotics. He recommended inpatient admission for IV antibiotics and then he would evaluate the patient tomorrow to determine if drainage was needed at that time. I spoke with the on-call hospitalist who agreed to admit the patient for further evaluation and treatment. Please refer to their dictation for further details. The patient was given Zosyn 4.5 g IV. The patient was stable at the time of transfer of care. Impression & Plan Perianal abscess Discharge Plan Visit Data Chief Complaint: Rectal Pain Stated Complaint: RECTAL PAIN ED Provider: Desmond Glaser ED Midlevel Provider: Angelica Alvarez Discharge Problem: Perianal abscess Patient Disposition: Admitted As Inpatient Condition: Good Discharge Instructions Interventions: ED Discharge Assessment Last Done: 01/15/22 18:10
[2022-01-15] MEDS ORDERED: SODIUM CHLORIDE 0.9% 500 ML IV ONE (11:08)
[2022-01-15] MEDS ORDERED: KETOROLAC TROMETHAMINE 15 MG/ML VIAL IV ONE (11:08)
[2022-01-15 11:34] LABS: Basophils % (auto) 0.7 %; Eosinophils # (auto) 0.35 K/uL (0-0.50); Eosinophils % (auto) 2.4 %; Hemoglobin 12.3 g/dl (12.0-16.0); Immature Granulocytes # (auto) 0.12 K/uL (0.00-0.02); Immature Granulocytes % (auto) 0.8 %; Lymphocytes # (auto) 2.82 K/uL (1.2-3.4); Lymphocytes % (auto) 19.4 %; Mean Corpuscular Hemoglobin 29.3 pg (25.0-34.0); Mean Corpuscular Hgb Conc 34.2 g/dL (32.0-36.0); Mean Corpuscular Volume 85.7 fL (80.0-100.0); Mean Platelet Volume 9.6 fL (9.4-12.3); Monocytes # (auto) 0.77 K/uL (0.24-0.82); Monocytes % (auto) 5.3 %; Neutrophils # (auto) 10.37 K/uL (1.4-6.5); Neutrophils % (auto) 71.4 %; Platelet Count 373 K/uL (130-400); RDW Coefficient of Variation 14.6 % (11.5-14.5); RDW Standard Deviation 45.7 fL (36.4-46.3); White Blood Count 14.53 K/ul (4.8-10.8)
[2022-01-15 11:57] LABS: Alanine Aminotransferase 21 U/L (7-52); Albumin Globulin Ratio 1.6 (0.9-2); Albumin Level 4.4 gm/dl (3.4-5.0); Alkaline Phosphatase 118 U/L (34-104); Anion Gap 10 (3-11); Aspartate Aminotransferase 16 U/L (13-39); Bilirubin,Total 0.9 mg/dl (0.2-1.0); Blood Urea Nitrogen 9 mg/dl (6-23); Calcium 9.6 mg/dl (8.5-10.1); Carbon Dioxide 23 mmol/L (21-32); Chloride 100 mmol/L (98-107); Est GFR (African American) 114.8 ml/min; Est GFR (Non-African American) 99.1 ml/min; Globulin 2.8 gm/dl (2.5-4.0); Glucose 128 mg/dl (70-99(Fasting)); Potassium 3.7 mmol/L (3.5-5.1); Sodium 133 mmol/L (136-145); Total Protein 7.2 gm/dl (6.0-8.3)
[2022-01-15] MEDS ORDERED: OPTIRAY 350 100ml IV ONE (12:13)
[2022-01-15] MEDS ORDERED: MoRPHine SULFATE 4 MG/ML 1 ML CARP\\VIAL IV STA (13:45)
[2022-01-15] MEDS ORDERED: ONDANSETRON INJ 2 MG/ML 2 ML VIAL IV STA (13:45)
--- NOTE | 2022-01-15 13:46 | CT Scan Report ---
CT SCAN OF THE PELVIS WITH IV CONTRAST CLINICAL HISTORY: Rectal pain and swelling. Reported history of perianal abscess. COMPARISON STUDY: Pelvic CT dated 02/26/2018. TECHNIQUE: Following the IV administration of 88 cc of Optiray 350, CT scan of the pelvis is performe d from the pelvic inlet to the proximal femora. Images reviewed in the axial, sagittal, and coronal p lanes. IV contrast was administered without complication. A dose lowering technique was utilized adhe ring to the principles of ALARA. CT DOSE: 372.13 mGy.cm FINDINGS: The bladder is distended but otherwise normal in appearance. The uterus is surgically absent. No adne xal lesion is seen. There is no pelvic sidewall or inguinal lymphadenopathy. The imaged loops of smal l bowel and colon show no evidence of obstruction. There is mild diverticulosis of the imaged colon w ithout CT evidence of acute diverticulitis. A normal appendix is seen in the right lower quadrant. No intraperitoneal free air or free fluid is seen in the pelvis. There is evidence of previous ventral hernia repair. There is inflammation around the perianal soft tissues, greatest posteriorly. There is a thick-walled peripherally enhancing perianal fluid collection seen posteriorly at the 12:00 positi on. This measures 3.0 x 3.1 x 2.0 cm in aggregate dimension as seen on axial image #555. This is loca sharita just below the levator musculature. The skeletal structures appear intact. No lytic or blastic le bella is seen. The regional musculature is normal and symmetric. IMPRESSION: There is a 3.1 cm perianal abscess at the 12:00 position with surrounding cellulitis as d etailed above. ACT 112: Negative or not required by law. Electronically signed by: David Cote M.D. 01/15/2022 1:45 PM
[2022-01-15] MEDS ORDERED: PIPERACILLIN/TAZOBACTAM 4.5 GM/120 ML BAG IV ONE (14:12)
--- NOTE | 2022-01-15 14:17 | Anesthesiology Consultation ---
Date of Service January 15, 2022 Assessment & Plan Chart Review Chart Review: Acceptable Risk for Surgery Consults Requested none ASA ASA3 Proposed Anesthesia Anesthesia Type: General Risk / Benefits Reviewed With: PT / POA / Parent / Guardian, Accepts Plan and Informed Consent Obtained History Surgery Operation Date: 01/16/22 11:00 Proposed Procedures p Arlene Rectal Abscess Incison and Drainage - Julio Watkins MD Height/Weight Weight: 63.3 kg Allergies Allergy/AdvReac Type Severity Reaction Status Date / Time hydrocodone Allergy Intermediate HIVES Verified 01/15/22 12:52 levofloxacin Allergy Intermediate Hives Verified 01/15/22 12:52 Medications Home Medications Medication Instructions Recorded Confirmed Last Taken albuterol sulfate 90 mcg/actuation 2 puff inhalation QID PRN 02/26/18 01/15/22 Unknown aerosol inhaler (ProAir HFA) Shortness Of Breath aspirin 81 mg chewable tablet 81 mg PO DAILY 02/26/18 01/15/22 07/18/18 22:00 multivitamin 1 tab PO DAILY 02/26/18 01/15/22 07/18/18 22:00 omega 4-prp-bml-fish oil 1,000 mg 1,000 mg PO DAILY 02/26/18 01/15/22 07/18/18 22:00 (120 mg-180 mg) capsule (Fish Oil) simvastatin 20 mg tablet 20 mg PO HS 02/26/18 01/15/22 07/22/18 22:00 calcium citrate 315 mg-vitamin D3 1 tab PO DAILY 07/10/18 01/15/22 07/18/18 22:00 5 mcg (200 unit) tablet (Calcium Citrate + D) fluticasone propionate 50 2 spray intranasal DAILY PRN 07/10/18 01/15/22 07/18/18 22:00 mcg/actuation nasal ALLERGY RELIEF spray,suspension lisinopril 5 mg tablet 5 mg PO QAM 07/10/18 01/15/22 07/22/18 09:00 metformin 500 mg tablet 1,000 mg PO BID 07/10/18 01/15/22 07/21/18 22:00 omeprazole 40 mg capsule,delayed 40 mg PO QAM 07/10/18 01/15/22 07/25/18 05:15 release peg 400-propylene glycol (PF) 0.4 1 drp ophthalmic (eye) BID PRN Dry 07/10/18 01/15/22 07/24/18 09:00 %-0.3 % eye drops in a dropperette Eyes (Systane (PF)) buspirone 10 mg tablet 10 mg PO .COMPLEX 01/10/20 01/15/22 Unknown lifitegrast 5 % eye drops in a 1 drp ophthalmic (eye) BID 01/10/20 01/15/22 Unknown dropperette (Xiidra) magnesium oxide 400 mg (241.3 mg 400 mg PO DAILY 01/10/20 01/15/22 Unknown magnesium) tablet metoprolol succinate 50 mg 50 mg PO BID 01/10/20 01/15/22 Unknown tablet,extended release 24 hr riboflavin (vitamin B2) 400 mg 400 mg PO DAILY 01/10/20 01/15/22 Unknown tablet Active Medications Generic Name Dose Route Start Last Admin Trade Name Freq PRN Reason Stop Dose Admin Acetaminophen 650 mg 01/15/22 15:20 01/15/22 18:47 Acetaminophen 325 Mg Tab PO 02/14/22 15:19 650 mg Q4H PRN Administration Pain or Fever Buspirone HCl 10 mg 01/16/22 09:00 01/16/22 08:00 Buspirone 5 Mg Tab PO 02/15/22 08:59 10 mg QAM [place] Administration Buspirone HCl 20 mg 01/15/22 21:00 01/15/22 20:44 Buspirone 5 Mg Tab PO 02/14/22 20:59 20 mg HS [place] Administration Piperacillin Sod/Tazobactam 115 mls @ 28.75 mls/hr 01/15/22 19:30 01/16/22 08:02 Sod 3.375 gm/ Dextrose IV 01/17/22 19:29 Infused Q8H [place] Infusion Protocol Insulin Aspart 0 units 01/16/22 00:00 01/16/22 06:01 Insulin Aspart Per Unit SC 02/15/22 00:00 Not Given Q6 [place] Metoprolol Succinate 50 mg 01/15/22 21:00 01/16/22 08:00 Metoprolol Succ 50mg Ext Rel Tab PO 02/14/22 20:59 50 mg BID [place] Administration Miscellaneous 1 each 01/16/22 00:00 01/16/22 07:55 Lifitegrast [Xiidra] 5 % ~ Order Awaiting Action N/A 02/15/22 00:00 Not Given QS [place] Morphine Sulfate 3 mg 01/15/22 16:27 01/16/22 06:05 Morphine Sulfate 4 Mg/Ml 1 Ml Carp\Vial IV 01/29/22 16:26 3 mg Q3H PRN Administration Pain Simvastatin 20 mg 01/15/22 21:00 01/15/22 20:43 Simvastatin 20 Mg Tab PO 02/14/22 20:59 20 mg HS [place] Administration NPO Date Last Intake of Fluids: 01/15/22 Time Last Intake of Fluids: 18:30 Date Last Intake of Solids: 01/14/22 Time Last Intake of Solids: 20:00 Past Medical History Medical History Allergic rhinitis due to pollen Anxiety Asthma Degenerative disc disease Diabetes mellitus, type 2 NIDDM Dry eye syndrome GERD (gastroesophageal reflux disease) CONTROLLED History of positive PPD S/P [place] 1995/NEGATIVE SUBSEQUENT CXR'S Hyperlipidemia Hypertension Kidney stones Obstructive sleep apnea CPAP Osteoporosis Peripheral neuropathy Tachycardia CONTROLLED ON METOPROLOL Exercise / Class Metabolic Activity II 4-5 Yardwork/Stairs/Walk up hill Past Family History Family History Grandmother (Maternal) Diabetes Hypertension Mother Hypertension Septicemia Past Surgical History Surgical History H/O foot surgery H/O hysterectomy with oophorectomy H/O lithotripsy History of colonoscopy History of cystoscopy WITH STENT INSERTION History of esophagogastroduodenoscopy (EGD) History of lumbar fusion L4-5 2018 [place] History of nasal septoplasty History of tonsillectomy History of tooth extraction S/P hernia surgery Past Anesthesia History No Hx of Anesthesia Complications and No Family Hx of Anesthesia Complications History of PONV No Hx of PONV and No Hx of Motion Sickness Social History Smoking Status: Never smoker Hx Alcohol Use: No Hx Substance Use: No substance use type: does not use Physical Exam Vital Signs Last Vital Signs Temp 37.2 C 01/16/22 08:19 Pulse 91 H 01/16/22 08:19 Resp 20 01/16/22 08:19 BP 108/72 01/16/22 08:19 Pulse Ox 97 01/16/22 08:19 O2 Del Method 01/16/22 08:19 ENMT Mouth: no TMJ abnormality Thyromental Distance: > or= 3.5 Finger Breadths Mallampati Class: II Neck normal visual inspection and trachea midline; neck extension not limited Respiratory normal respiratory effort Auscultation: lungs clear to auscultation bilaterally Cardiovascular Rate/Rhythm: regular rate and regular rhythm Heart Sounds: no murmur Musculoskeletal Spine: normal cervical ROM Extremities: full ROM of extremities Neurologic moves all extremities Psychiatric Orientation: alert and oriented x 3 Testing Laboratory Results 01/16/22 06:47 01/16/22 06:47 01/16/22 01/16/22 01/15/22 05:35 00:12 23:34 POC Glucose 113 H 123 H 124 H Electrocardiogram Date: 01/15/22 Findings: + NSR @ (96) pending
--- NOTE | 2022-01-15 15:07 | History & Physical Report ---
Date of Service January 15, 2022 Assessment & Plan (1) Perirectal abscess: Plan: - CT pelvis - 3.1 cm perianal abscess at the 12:00 position with surrounding cellulitis as detailed above. - fever noted at home, pain in perrectal area in last 1-2 weeks - surgery contacted by ED, recommend IV Abx and pt was started on zosyn - possible I&D tmrw, keep pt NPO after MN -Patient also reported fever, chills at home, will obtain blood cultures and will follow results -Continue to closely monitor (2) DM type 2 (diabetes mellitus, type 2): Plan: A1c 6.3% in 02/2021 - hold home metformin - cont. to monitor blood glc level while inpt (3) Hyperlipidemia: Plan: - cont. home on statin (4) Hypertension: Plan: - hold home lisinopril for now, cont. metoprolol 50 bid Anxiety - cont. home Buspr DVT ppx: SCDs, plan for poss. procedure tmrw History of Present Illness Chief Complaint: Rectal pain Primary Care Provider: Marco Rodriguez MD 62-year-old female with hypertension, diabetes mellitus type 2, hyperlipidemia, MORIS, history of asthma, who presents with rectal pain. Patient reports she had similar episode years ago, when she had an abscess like this. At that time it was associated with her riding a bicycle for prolonged amount of time. This time she reports that she was sitting a lot and then she noticed pain in perirectal area. Pain has been worsening for the past 1 to 2 weeks. She also reports chills, night sweats, and fever at home of 100.1 Fahrenheit. Denies any chest pain or shortness of breath. Reports that she has asthma, however only very occasionally needs to use her inhalers. Denies any abdominal pain, nausea vomiting, denies diarrhea or constipation. No blood in the stool. Denies dysuria. In the ED, she was examined and CT pelvis was obtained which showed perianal abscess of 3 cm. ED contacted general surgery, and it was recommended that patient was started on IV antibiotics and made n.p.o. after midnight. Possible I&D tomorrow. On my evaluation, patient is overall in no acute distress, but continues to have pain. Otherwise denies any other complaints. Allergies Allergy/AdvReac Type Severity Reaction Status Date / Time hydrocodone Allergy Intermediate HIVES Verified 01/15/22 12:52 levofloxacin Allergy Intermediate Hives Verified 01/15/22 12:52 Home Medications Medication Instructions Recorded Confirmed Type albuterol sulfate 90 mcg/actuation 2 puff inhalation QID PRN 02/26/18 01/15/22 History aerosol inhaler (ProAir HFA) Shortness Of Breath aspirin 81 mg chewable tablet 81 mg PO DAILY 02/26/18 01/15/22 History multivitamin 1 tab PO DAILY 02/26/18 01/15/22 History omega 6-yvj-uwu-fish oil 1,000 mg 1,000 mg PO DAILY 02/26/18 01/15/22 History (120 mg-180 mg) capsule (Fish Oil) simvastatin 20 mg tablet 20 mg PO HS 02/26/18 01/15/22 History calcium citrate 315 mg-vitamin D3 1 tab PO DAILY 07/10/18 01/15/22 History 5 mcg (200 unit) tablet (Calcium Citrate + D) fluticasone propionate 50 2 spray intranasal DAILY PRN 07/10/18 01/15/22 History mcg/actuation nasal ALLERGY RELIEF spray,suspension lisinopril 5 mg tablet 5 mg PO QAM 07/10/18 01/15/22 History metformin 500 mg tablet 1,000 mg PO BID 07/10/18 01/15/22 History omeprazole 40 mg capsule,delayed 40 mg PO QAM 07/10/18 01/15/22 History release peg 400-propylene glycol (PF) 0.4 1 drp ophthalmic (eye) BID PRN Dry 07/10/18 01/15/22 History %-0.3 % eye drops in a dropperette Eyes (Systane (PF)) buspirone 10 mg tablet 10 mg PO .COMPLEX 01/10/20 01/15/22 History lifitegrast 5 % eye drops in a 1 drp ophthalmic (eye) BID 01/10/20 01/15/22 History dropperette (Xiidra) magnesium oxide 400 mg (241.3 mg 400 mg PO DAILY 01/10/20 01/15/22 History magnesium) tablet metoprolol succinate 50 mg 50 mg PO BID 01/10/20 01/15/22 History tablet,extended release 24 hr riboflavin (vitamin B2) 400 mg 400 mg PO DAILY 01/10/20 01/15/22 History tablet Past Med/Surg History Medical History (Updated 01/15/22 @ 15:52 by Angelica Alvarez PA-C) Allergic rhinitis due to pollen Anxiety Asthma Degenerative disc disease Diabetes mellitus, type 2 NIDDM Dry eye syndrome GERD (gastroesophageal reflux disease) CONTROLLED History of positive PPD S/P TX 1995/NEGATIVE SUBSEQUENT CXR'S Hyperlipidemia Hypertension Kidney stones Obstructive sleep apnea CPAP Osteoporosis Peripheral neuropathy Tachycardia CONTROLLED ON METOPROLOL Surgical History (Updated 01/15/22 @ 14:16 by Trish Jimenez DO) H/O foot surgery H/O hysterectomy with oophorectomy H/O lithotripsy History of colonoscopy History of cystoscopy WITH STENT INSERTION History of esophagogastroduodenoscopy (EGD) History of lumbar fusion L4-5 2018 [facility] History of nasal septoplasty History of tonsillectomy History of tooth extraction S/P hernia surgery Family History Grandmother (Maternal) Diabetes Hypertension Mother Hypertension Septicemia Social History Smoking Status: Never smoker Second Hand Exposure: No; Hx Alcohol Use: No Hx Substance Use: No Preferred Language: Macanese Communication Ability: Effective Dewaxer Required: No Beliefs That Will Affect Care: None Current Living Situation: Alone Feels Safe at Home: Yes Assistive Devices: Walker Review of Systems Review of Systems: All systems reviewed & are unremarkable except as noted in HPI & below Physical Exam Constitutional: WD/WN, vitals as above Eyes: PERRL, conjunctivae normal, anicteric sclerae ENMT: external ear and nose normal, oropharynx normal Neck: trachea midline, no thyromegaly Respiratory: normal respiratory effort, lungs clear to auscultation Cardiovascular: RRR, no murmur, no edema Chest (Breasts): Chest: normal inspection of chest Gastrointestinal (Abdomen): normal bowel sounds, soft, nontender, no hepatosplenomegaly Musculoskeletal: no cyanosis or clubbing, extremities motor strength 5/5 Skin: no rashes, warm and dry Neurologic: PERRL, EOMI, accommodation nl, no face palsy, no dysarthria Psychiatric: A+Ox3, euthymic affect Lymphatic: no lymphedema Results & Data Results & Data ([facility]) Vital Signs (Past 12 Hours) Vital Signs Temp Pulse Resp BP Pulse Ox O2 Del Method 01/15/22 14:00 90 24 99 01/15/22 14:00 120/76 01/15/22 13:30 90 15 01/15/22 13:30 118/74 01/15/22 13:00 82 16 01/15/22 13:00 99/67 L 01/15/22 12:30 85 24 01/15/22 12:30 105/60 01/15/22 12:21 121/66 01/15/22 12:21 92 H 26 H 01/15/22 12:00 86 16 01/15/22 11:50 93 H 17 122/81 01/15/22 11:48 93 H 27 H 01/15/22 10:49 37.1 C 117 H 18 135/84 94 Room Air Laboratory Results 01/15/22 01/15/22 01/15/22 Range/Units 14:15 11:20 11:20 WBC 14.53 H (4.8-10.8) K/ul RBC 4.20 (3.93-5.22) M/uL Hgb 12.3 (12.0-16.0) g/dl Hct 36.0 (34.1-44.9) % MCV 85.7 (80.0-100.0) fL MCH 29.3 (25.0-34.0) pg MCHC 34.2 (32.0-36.0) g/dL RDW Std Deviation 45.7 (36.4-46.3) fL RDW Coeff of Maryann 14.6 H (11.5-14.5) % Plt Count 373 (130-400) K/uL MPV 9.6 (9.4-12.3) fL Immature Gran % (Auto) 0.8 % Neut % (Auto) 71.4 % Lymph % (Auto) 19.4 % [place] % (Auto) 5.3 % Eos % (Auto) 2.4 % Baso % (Auto) 0.7 % Neut # (Auto) 10.37 H (1.4-6.5) K/uL Lymph # (Auto) 2.82 (1.2-3.4) K/uL [place] # (Auto) 0.77 (0.24-0.82) K/uL Eos # (Auto) 0.35 (0-0.50) K/uL Baso # (Auto) 0.10 (0-0.2) K/uL Immature Gran # (Auto) 0.12 H (0.00-0.02) K/uL Sodium 133 L (136-145) mmol/L Potassium 3.7 (3.5-5.1) mmol/L Chloride 100 (98-107) mmol/L Carbon Dioxide 23 (21-32) mmol/L Anion Gap 10 (3-11) BUN 9 (6-23) mg/dl Creatinine 0.60 (0.6-1.2) mg/dl Est Cr Clr Drug Dosing Not Reportable Est GFR ( Amer) 114.8 ml/min Est GFR (Non-Af Amer) 99.1 ml/min BUN/Creatinine Ratio 15.0 (10-20) Glucose 128 H (70-99(Fasting)) mg/dl Calcium 9.6 (8.5-10.1) mg/dl Total Bilirubin 0.9 (0.2-1.0) mg/dl AST 16 (13-39) U/L ALT 21 (7-52) U/L Alkaline Phosphatase 118 H (34-104) U/L Total Protein 7.2 (6.0-8.3) gm/dl Albumin 4.4 (3.4-5.0) gm/dl Globulin 2.8 (2.5-4.0) gm/dl Albumin/Globulin Ratio 1.6 (0.9-2) SARS-CoV-2, RNA, NAAT NEGATIVE (NEGATIVE) Diagnostic Findings CT pelvis FINDINGS: The bladder is distended but otherwise normal in appearance. The uterus is surgically absent. No adnexal lesion is seen. There is no pelvic sidewall or inguinal lymphadenopathy. The imaged loops of small bowel and colon show no evidence of obstruction. There is mild diverticulosis of the imaged colon without CT evidence of acute diverticulitis. A normal appendix is seen in the right lower quadrant. No intraperitoneal free air or free fluid is seen in the pelvis. There is evidence of previous ventral hernia repair. There is inflammation around the perianal soft tissues, greatest posteriorly. There is a thick-walled peripherally enhancing perianal fluid collection seen posteriorly at the 12:00 position. This measures 3.0 x 3.1 x 2.0 cm in aggregate dimension as seen on axial image #555. This is located just below the levator musculature. The skeletal structures appear intact. No lytic or blastic lesion is seen. The regional musculature is normal and symmetric. IMPRESSION: There is a 3.1 cm perianal abscess at the 12:00 position with s urrounding cellulitis as detailed above.
[2022-01-15] MEDS ORDERED: POTASSIUM CHLORIDE CRTAB 20 MEQ TABCR PO STA (15:11)
[2022-01-15] MEDS ORDERED: SODIUM CHLORIDE 0.9% 1000ML 1,000 ML IV ONE (16:28)
[2022-01-15] MEDS ORDERED: FAMOTIDINE 20MG IV PUSH 20 MG/5 ML SYR IV STA (17:04)
[2022-01-15] MEDS ORDERED: CALCIUM CARBONATE 500 MG CHEWABLE TAB PO PRN (17:04)
[2022-01-15] MEDS ORDERED: Patient's HEIGHT &/or WEIGHT Needed SCH (18:30)
[2022-01-15] MEDS: ACETAMINOPHEN 325 MG TAB PO PRN (18:47)
[2022-01-15] MEDS: PIPERACILLIN/TAZOBACTAM 3.375 GM in DEXTROSE 5% 100 ML IV SCH (19:38)
[2022-01-15] MEDS: SIMVASTATIN 20 MG TAB PO SCH (20:43)
[2022-01-15] MEDS: busPIRone 5 MG TAB PO SCH (20:44)
[2022-01-15] MEDS: MoRPHine SULFATE 4 MG/ML 1 ML CARP\\VIAL IV PRN (20:44)
[2022-01-15] MEDS: METOPROLOL SUCC 50MG EXT REL TAB PO SCH (20:44)
[2022-01-15] MEDS: INSULIN ASPART PER UNIT SC SCH ×4 (22:38→23:39)
[2022-01-16] MEDS: PIPERACILLIN/TAZOBACTAM 3.375 GM in DEXTROSE 5% 100 ML IV SCH ×3 (03:01→19:36)
[2022-01-16] MEDS: MoRPHine SULFATE 4 MG/ML 1 ML CARP\\VIAL IV PRN ×3 (03:02→20:29)
[2022-01-16] MEDS: INSULIN ASPART PER UNIT SC SCH ×4 (06:01→21:25)
[2022-01-16 07:05] LABS: Hemoglobin 10.8 g/dl (12.0-16.0); Mean Corpuscular Hemoglobin 29.5 pg (25.0-34.0); Mean Corpuscular Hgb Conc 33.8 g/dL (32.0-36.0); Mean Corpuscular Volume 87.4 fL (80.0-100.0); Platelet Count 301 K/uL (130-400); RDW Coefficient of Variation 14.7 % (11.5-14.5); RDW Standard Deviation 47.1 fL (36.4-46.3); Red Blood Count 3.66 M/uL (3.93-5.22); White Blood Count 10.49 K/ul (4.8-10.8)
--- NOTE | 2022-01-16 07:15 | Electrocardiogram Report ---
Test Reason : Blood Pressure : / mmHG Vent. Rate : 096 BPM Atrial Rate : 096 BPM P-R Int : 128 ms QRS Dur : 084 ms QT Int : 354 ms P-R-T Axes : 057 046 036 degrees QTc Int : 447 ms Normal sinus rhythm Normal ECG When compared with ECG of 26-FEB-2018 18:51, No significant change was found Confirmed by Tha Fabian ([id number]) on 01/16/2022 7:14:46 AM Referred By: REFERRED SELF Confirmed By:Theodore Fabian
[2022-01-16 07:26] LABS: BUN Creatinine Ratio 11.1 (10-20); Calcium 8.5 mg/dl (8.5-10.1); Creatinine Clr Calc Pharmacy 91.7 ml/min; Est GFR (African American) 118.9 ml/min; Est GFR (Non-African American) 102.6 ml/min; Phosphorus 4.3 mg/dl (2.5-4.9); Potassium 3.8 mmol/L (3.5-5.1)
--- NOTE | 2022-01-16 07:54 | History & Physical Report ---
Date of Service January 16, 2022 Assessment & Plan (1) Perianal abscess: Plan: will take to the OR for drainage Admission and Anticipated Discharge Date Admission Date: January 15, 2022 History of Present Illness Primary Care Provider: Marco Rodriguez MD This 62-year-old female patient presented to ED with rectal pain. It has been present for past 1-2 weeks that is progressively getting worse. She states that it feels like something is inside of her rectum causing a lot of pressure. She is having trouble walking, sitting, or sleeping because of the pain. She has had fevers 100.1 F max mostly in the evening at home along with nausea and vomiting as well. Allergies Allergy/AdvReac Type Severity Reaction Status Date / Time hydrocodone Allergy Intermediate HIVES Verified 01/15/22 12:52 levofloxacin Allergy Intermediate Hives Verified 01/15/22 12:52 Home Medications Medication Instructions Recorded Confirmed Type albuterol sulfate 90 mcg/actuation 2 puff inhalation QID PRN 02/26/18 01/15/22 History aerosol inhaler (ProAir HFA) Shortness Of Breath aspirin 81 mg chewable tablet 81 mg PO DAILY 02/26/18 01/15/22 History multivitamin 1 tab PO DAILY 02/26/18 01/15/22 History omega 3-bwm-ieb-fish oil 1,000 mg 1,000 mg PO DAILY 02/26/18 01/15/22 History (120 mg-180 mg) capsule (Fish Oil) simvastatin 20 mg tablet 20 mg PO HS 02/26/18 01/15/22 History calcium citrate 315 mg-vitamin D3 1 tab PO DAILY 07/10/18 01/15/22 History 5 mcg (200 unit) tablet (Calcium Citrate + D) fluticasone propionate 50 2 spray intranasal DAILY PRN 07/10/18 01/15/22 History mcg/actuation nasal ALLERGY RELIEF spray,suspension lisinopril 5 mg tablet 5 mg PO QAM 07/10/18 01/15/22 History metformin 500 mg tablet 1,000 mg PO BID 07/10/18 01/15/22 History omeprazole 40 mg capsule,delayed 40 mg PO QAM 07/10/18 01/15/22 History release peg 400-propylene glycol (PF) 0.4 1 drp ophthalmic (eye) BID PRN Dry 07/10/18 01/15/22 History %-0.3 % eye drops in a dropperette Eyes (Systane (PF)) buspirone 10 mg tablet 10 mg PO .COMPLEX 01/10/20 01/15/22 History lifitegrast 5 % eye drops in a 1 drp ophthalmic (eye) BID 01/10/20 01/15/22 History dropperette (Xiidra) magnesium oxide 400 mg (241.3 mg 400 mg PO DAILY 01/10/20 01/15/22 History magnesium) tablet metoprolol succinate 50 mg 50 mg PO BID 01/10/20 01/15/22 History tablet,extended release 24 hr riboflavin (vitamin B2) 400 mg 400 mg PO DAILY 01/10/20 01/15/22 History tablet Past Med/Surg History Medical History (Updated 01/15/22 @ 15:52 by Angelica Alvarez PA-C) Allergic rhinitis due to pollen Anxiety Asthma Degenerative disc disease Diabetes mellitus, type 2 NIDDM Dry eye syndrome GERD (gastroesophageal reflux disease) CONTROLLED History of positive PPD S/P TX 1995/NEGATIVE SUBSEQUENT CXR'S Hyperlipidemia Hypertension Kidney stones Obstructive sleep apnea CPAP Osteoporosis Peripheral neuropathy Tachycardia CONTROLLED ON METOPROLOL Surgical History (Updated 01/15/22 @ 14:16 by Trish Jimenez DO) H/O foot surgery H/O hysterectomy with oophorectomy H/O lithotripsy History of colonoscopy History of cystoscopy WITH STENT INSERTION History of esophagogastroduodenoscopy (EGD) History of lumbar fusion L4-5 2018 [facility] History of nasal septoplasty History of tonsillectomy History of tooth extraction S/P hernia surgery Family History Grandmother (Maternal) Diabetes Hypertension Mother Hypertension Septicemia Social History Smoking Status: Never smoker Second Hand Exposure: No; Hx Alcohol Use: No Hx Substance Use: No Preferred Language: Chinese Communication Ability: Effective Digital Computer Operator Required: No Beliefs That Will Affect Care: None Current Living Situation: Alone Feels Safe at Home: Yes Assistive Devices: Glasses Review of Systems + fever and + chills; no anorexia no cough and no dyspnea no chest pain and no radiating jaw, neck or arm pain + nausea, + change in bowel habits and + constipation; no abdominal pain and no vomiting no dysuria no back pain, no neck pain and no joint pain no lesions no localized weakness and no generalized weakness no behavioral changes Physical Exam Constitutional: WD/WN, vitals as above Eyes: PERRL, conjunctivae normal, anicteric sclerae ENMT: external ear and nose normal, oropharynx normal Neck: trachea midline Respiratory: normal respiratory effort, lungs clear to auscultation Cardiovascular: RRR, no murmur, no edema Gastrointestinal (Abdomen): normal bowel sounds, soft, nontender, no hepatosplenomegaly Rectal Exam: + rectal tenderness Musculoskeletal: Head/Neck/Chest: normocephalic and head atraumatic Skin: no rashes, warm and dry Results & Data ([facility]) Vital Signs (Past 12 Hours) Vital Signs Temp Pulse Pulse Resp BP Pulse Ox O2 Del Method 01/16/22 07:39 99 H 01/16/22 02:56 36.9 C 90 18 112/72 94 Room Air 01/15/22 22:05 88 01/15/22 23:00 37.0 C 92 H 18 101/65 95 Room Air Diagnostic Findings CT SCAN OF THE PELVIS WITH IV CONTRAST CLINICAL HISTORY: Rectal pain and swelling. Reported history of perianal abscess. COMPARISON STUDY: Pelvic CT dated 02/26/2018. TECHNIQUE: Following the IV administration of 88 cc of Optiray 350, CT scan of the pelvis is performed from the pelvic inlet to the proximal femora. Images reviewed in the axial, sagittal, and coronal planes. IV contrast was administered without complication. A dose lowering technique was utilized adhering to the principles of ALARA. CT DOSE: 372.13 mGy.cm FINDINGS: The bladder is distended but otherwise normal in appearance. The uterus is surgically absent. No adnexal lesion is seen. There is no pelvic sidewall or inguinal lymphadenopathy. The imaged loops of small bowel and colon show no evidence of obstruction. There is mild diverticulosis of the imaged colon without CT evidence of acute diverticulitis. A normal appendix is seen in the right lower quadrant. No intraperitoneal free air or free fluid is seen in the pelvis. There is evidence of previous ventral hernia repair. There is inflammation around the perianal soft tissues, greatest posteriorly. There is a thick-walled peripherally enhancing perianal fluid collection seen posteriorly at the 12:00 position. This measures 3.0 x 3.1 x 2.0 cm in aggregate dimension as seen on axial image #555. This is located just below the levator musculature. The skeletal structures appear intact. No lytic or blastic lesion is seen. The regional musculature is normal and symmetric. IMPRESSION: There is a 3.1 cm perianal abscess at the 12:00 position with surrounding cellulitis as detailed above. Code Status & VTE Plan VTE Prophylaxis Plan VTE Prophylaxis will be ordered: Yes
--- NOTE | 2022-01-16 07:56 | Hospitalist Progress Note ---
Date of Service January 16, 2022 Assessment & Plan (1) Perirectal abscess: Plan: - CT pelvis - 3.1 cm perianal abscess at the 12:00 position with surrounding cellulitis as detailed above. - fever noted at home, pain in perrectal area in last 1-2 weeks - blood cultures obtained and will follow results - surgery contacted by ED, recommend IV Abx and pt was started on zosyn - plan for I&D today (01/16) - Continue to closely monitor (2) DM type 2 (diabetes mellitus, type 2): Plan: A1c 6.3% in 02/2021 - hold home metformin - cont. to monitor blood glc level while inpt (3) Hyperlipidemia: Plan: - cont. home on statin (4) Hypertension: Plan: - hold home lisinopril for now, cont. metoprolol 50 bid Anxiety - cont. home Buspar DVT ppx: SCDs, plan for surg. procedure Admission and Anticipated Discharge Date Admission Date: January 15, 2022 Subjective Pt seen in follow up of perirectal abscess Patient reports her pain is even worse today. Even though she was started on IV antibiotics and received morphine overnight. Seen by surgery this morning, plan for I&D later today. Patient otherwise currently denies any fevers chills chest pain shortness of breath, abdominal pain, nausea vomiting Review of Systems Review of Systems: All systems reviewed & are unremarkable except as noted in Subjective Physical Exam Physical Exam: Constitutional:I WD/WN, vitals as a dana Eyes: PERRL, EOMI, conju nctivae normal, an icteric sclerae ENMT: external ear and n ose normal, oropha rynx normal Neck: supple Respiratory: normal respiratory effort, lungs eliazar ar to auscultation Cardiovascular:I RRR, no murmur, no edema Chest (Breasts): Chest: normal insp ection of chest Gastrointestinal ( Abdomen): normal bowel sound s, soft, nontender Musculoskeletal: extremities motor strength 5/5 Skin: no rashes, warm an d dry Neurologic: PERRL, EOMI,no fac e palsy, no dysart hria, moves extrem ities Psychiatric: A+Ox3, euthymic af fect Lymphatic: no lymphedema Results & Data Results & Data ([facility]) Vital Signs (Past 12 Hours) Vital Signs Temp Pulse Pulse Resp BP Pulse Ox O2 Del Method 01/16/22 07:39 99 H 01/16/22 02:56 36.9 C 90 18 112/72 94 Room Air 01/15/22 22:05 88 01/15/22 23:00 37.0 C 92 H 18 101/65 95 Room Air Laboratory Results 01/16/22 01/16/22 01/16/22 Range/Units 06:47 06:47 06:47 WBC 10.49 (4.8-10.8) K/ul RBC 3.66 L (3.93-5.22) M/uL Hgb 10.8 L (12.0-16.0) g/dl Hct 32.0 L (34.1-44.9) % MCV 87.4 (80.0-100.0) fL MCH 29.5 (25.0-34.0) pg MCHC 33.8 (32.0-36.0) g/dL RDW Std Deviation 47.1 H (36.4-46.3) fL RDW Coeff of Maryann 14.7 H (11.5-14.5) % Plt Count 301 (130-400) K/uL MPV 9.0 L (9.4-12.3) fL Immature Gran % (Auto) % Neut % (Auto) % Lymph % (Auto) % [place] % (Auto) % Eos % (Auto) % Baso % (Auto) % Neut # (Auto) (1.4-6.5) K/uL Lymph # (Auto) (1.2-3.4) K/uL [place] # (Auto) (0.24-0.82) K/uL Eos # (Auto) (0-0.50) K/uL Baso # (Auto) (0-0.2) K/uL Immature Gran # (Auto) (0.00-0.02) K/uL Sodium 136 (136-145) mmol/L Potassium 3.8 (3.5-5.1) mmol/L Chloride 105 (98-107) mmol/L Carbon Dioxide 24 (21-32) mmol/L Anion Gap 7 (3-11) BUN 6 (6-23) mg/dl Creatinine 0.54 L (0.6-1.2) mg/dl Est Cr Clr Drug Dosing 91.7 Est GFR ( Amer) 118.9 ml/min Est GFR (Non-Af Amer) 102.6 ml/min BUN/Creatinine Ratio 11.1 (10-20) Glucose 115 H (70-99(Fasting)) mg/dl POC Glucose (70-99) mg/dl Calcium 8.5 (8.5-10.1) mg/dl Phosphorus 4.3 (2.5-4.9) mg/dl Magnesium 2.0 (1.7-2.4) mg/dl Total Bilirubin (0.2-1.0) mg/dl AST (13-39) U/L ALT (7-52) U/L Alkaline Phosphatase (34-104) U/L Total Protein (6.0-8.3) gm/dl Albumin (3.4-5.0) gm/dl Globulin (2.5-4.0) gm/dl Albumin/Globulin Ratio (0.9-2) Hepatitis C Ab (EIA) Pending Hep C Ab Signal/Cutoff Pending SARS-CoV-2, RNA, NAAT (NEGATIVE) 01/16/22 01/16/22 01/15/22 Range/Units 05:35 00:12 23:34 WBC (4.8-10.8) K/ul RBC (3.93-5.22) M/uL Hgb (12.0-16.0) g/dl Hct (34.1-44.9) % MCV (80.0-100.0) fL MCH (25.0-34.0) pg MCHC (32.0-36.0) g/dL RDW Std Deviation (36.4-46.3) fL RDW Coeff of Maryann (11.5-14.5) % Plt Count (130-400) K/uL MPV (9.4-12.3) fL Immature Gran % (Auto) % Neut % (Auto) % Lymph % (Auto) % [place] % (Auto) % Eos % (Auto) % Baso % (Auto) % Neut # (Auto) (1.4-6.5) K/uL Lymph # (Auto) (1.2-3.4) K/uL [place] # (Auto) (0.24-0.82) K/uL Eos # (Auto) (0-0.50) K/uL Baso # (Auto) (0-0.2) K/uL Immature Gran # (Auto) (0.00-0.02) K/uL Sodium (136-145) mmol/L Potassium (3.5-5.1) mmol/L Chloride (98-107) mmol/L Carbon Dioxide (21-32) mmol/L Anion Gap (3-11) BUN (6-23) mg/dl Creatinine (0.6-1.2) mg/dl Est Cr Clr Drug Dosing Est GFR ( Amer) ml/min Est GFR (Non-Af Amer) ml/min BUN/Creatinine Ratio (10-20) Glucose (70-99(Fasting)) mg/dl POC Glucose 113 H 123 H 124 H (70-99) mg/dl Calcium (8.5-10.1) mg/dl Phosphorus (2.5-4.9) mg/dl Magnesium (1.7-2.4) mg/dl Total Bilirubin (0.2-1.0) mg/dl AST (13-39) U/L ALT (7-52) U/L Alkaline Phosphatase (34-104) U/L Total Protein (6.0-8.3) gm/dl Albumin (3.4-5.0) gm/dl Globulin (2.5-4.0) gm/dl Albumin/Globulin Ratio (0.9-2) Hepatitis C Ab (EIA) Hep C Ab Signal/Cutoff SARS-CoV-2, RNA, NAAT (NEGATIVE) 01/15/22 01/15/22 01/15/22 Range/Units 21:13 14:15 11:20 WBC (4.8-10.8) K/ul RBC (3.93-5.22) M/uL Hgb (12.0-16.0) g/dl Hct (34.1-44.9) % MCV (80.0-100.0) fL MCH (25.0-34.0) pg MCHC (32.0-36.0) g/dL RDW Std Deviation (36.4-46.3) fL RDW Coeff of Maryann (11.5-14.5) % Plt Count (130-400) K/uL MPV (9.4-12.3) fL Immature Gran % (Auto) % Neut % (Auto) % Lymph % (Auto) % [place] % (Auto) % Eos % (Auto) % Baso % (Auto) % Neut # (Auto) (1.4-6.5) K/uL Lymph # (Auto) (1.2-3.4) K/uL [place] # (Auto) (0.24-0.82) K/uL Eos # (Auto) (0-0.50) K/uL Baso # (Auto) (0-0.2) K/uL Immature Gran # (Auto) (0.00-0.02) K/uL Sodium 133 L (136-145) mmol/L Potassium 3.7 (3.5-5.1) mmol/L Chloride 100 (98-107) mmol/L Carbon Dioxide 23 (21-32) mmol/L Anion Gap 10 (3-11) BUN 9 (6-23) mg/dl Creatinine 0.60 (0.6-1.2) mg/dl Est Cr Clr Drug Dosing Not Reportable Est GFR ( Amer) 114.8 ml/min Est GFR (Non-Af Amer) 99.1 ml/min BUN/Creatinine Ratio 15.0 (10-20) Glucose 128 H (70-99(Fasting)) mg/dl POC Glucose 119 H (70-99) mg/dl Calcium 9.6 (8.5-10.1) mg/dl Phosphorus (2.5-4.9) mg/dl Magnesium (1.7-2.4) mg/dl Total Bilirubin 0.9 (0.2-1.0) mg/dl AST 16 (13-39) U/L ALT 21 (7-52) U/L Alkaline Phosphatase 118 H (34-104) U/L Total Protein 7.2 (6.0-8.3) gm/dl Albumin 4.4 (3.4-5.0) gm/dl Globulin 2.8 (2.5-4.0) gm/dl Albumin/Globulin Ratio 1.6 (0.9-2) Hepatitis C Ab (EIA) Hep C Ab Signal/Cutoff SARS-CoV-2, RNA, NAAT NEGATIVE (NEGATIVE) 01/15/22 Range/Units 11:20 WBC 14.53 H (4.8-10.8) K/ul RBC 4.20 (3.93-5.22) M/uL Hgb 12.3 (12.0-16.0) g/dl Hct 36.0 (34.1-44.9) % MCV 85.7 (80.0-100.0) fL MCH 29.3 (25.0-34.0) pg MCHC 34.2 (32.0-36.0) g/dL RDW Std Deviation 45.7 (36.4-46.3) fL RDW Coeff of Maryann 14.6 H (11.5-14.5) % Plt Count 373 (130-400) K/uL MPV 9.6 (9.4-12.3) fL Immature Gran % (Auto) 0.8 % Neut % (Auto) 71.4 % Lymph % (Auto) 19.4 % [place] % (Auto) 5.3 % Eos % (Auto) 2.4 % Baso % (Auto) 0.7 % Neut # (Auto) 10.37 H (1.4-6.5) K/uL Lymph # (Auto) 2.82 (1.2-3.4) K/uL [place] # (Auto) 0.77 (0.24-0.82) K/uL Eos # (Auto) 0.35 (0-0.50) K/uL Baso # (Auto) 0.10 (0-0.2) K/uL Immature Gran # (Auto) 0.12 H (0.00-0.02) K/uL Sodium (136-145) mmol/L Potassium (3.5-5.1) mmol/L Chloride (98-107) mmol/L Carbon Dioxide (21-32) mmol/L Anion Gap (3-11) BUN (6-23) mg/dl Creatinine (0.6-1.2) mg/dl Est Cr Clr Drug Dosing Est GFR ( Amer) ml/min Est GFR (Non-Af Amer) ml/min BUN/Creatinine Ratio (10-20) Glucose (70-99(Fasting)) mg/dl POC Glucose (70-99) mg/dl Calcium (8.5-10.1) mg/dl Phosphorus (2.5-4.9) mg/dl Magnesium (1.7-2.4) mg/dl Total Bilirubin (0.2-1.0) mg/dl AST (13-39) U/L ALT (7-52) U/L Alkaline Phosphatase (34-104) U/L Total Protein (6.0-8.3) gm/dl Albumin (3.4-5.0) gm/dl Globulin (2.5-4.0) gm/dl Albumin/Globulin Ratio (0.9-2) Hepatitis C Ab (EIA) Hep C Ab Signal/Cutoff SARS-CoV-2, RNA, NAAT (NEGATIVE) Medications Administered Current Inpatient Medications Acetaminophen (Acetaminophen 325 Mg Tab) 650 mg PO Q4H PRN PRN Reason: Pain or Fever Stop: 02/14/22 15:19 Last Admin: 01/15/22 18:47 Dose: 650 mg Albuterol (Albut/Ipratrop 3mg/0.5mg Neb 3 Ml Vial) 3 ml INH ONCE PRN PRN Reason: PACU Use Only-SOB/Wheezing Stop: 01/16/22 16:01 Atropine Sulfate (Atropine Sulfate 0.1 Mg/Ml 10ml Syr) 0.5 mg IV Q1M PRN PRN Reason: PACU Use-HR<40 &/or Bradycardi Stop: 01/16/22 16:01 Buspirone HCl (Buspirone 5 Mg Tab) 10 mg PO QAM [place] Stop: 02/15/22 08:59 Last Admin: 01/16/22 08:00 Dose: 10 mg Buspirone HCl (Buspirone 5 Mg Tab) 20 mg PO HS [place] Stop: 02/14/22 20:59 Last Admin: 01/15/22 20:44 Dose: 20 mg Calcium Carbonate (Calcium Carbonate 500 Mg Chewable Tab) 500 mg PO Q6H PRN PRN Reason: Indigestion Stop: 02/14/22 17:03 Ephedrine Sulfate (Ephedrine Sulfate 50 Mg/Ml Amp) 5 mg IV Q5M PRN PRN Reason: PACU Use Only-SBP<90 mmHg Stop: 01/16/22 16:01 Fentanyl Citrate (Fentanyl Citrate 100 Mcg/2 Ml Vial) 25 mcg IV Q5M PRN PRN Reason: PACU Use Only-Pain Stop: 01/16/22 16:01 Piperacillin Sod/Tazobactam (Sod 3.375 gm/ Dextrose) 115 mls @ 28.75 mls/hr IV Q8H [facility]; Protocol Stop: 01/17/22 19:29 Last Infusion: 01/16/22 08:02 Dose: Infused Insulin Aspart (Insulin Aspart Per Unit) 0 units SC Q6 [facility] Stop: 02/15/22 00:00 Last Admin: 01/16/22 06:01 Dose: Not Given Meperidine HCl (Meperidine Hcl 25 Mg/Ml Carp/Vial) 12.5 mg IV Q5M PRN PRN Reason: Surgi Pain/Chills/Rigors Stop: 01/16/22 16:01 Metoprolol Succinate (Metoprolol Succ 50mg Ext Rel Tab) 50 mg PO BID [facility] Stop: 02/14/22 20:59 Last Admin: 01/16/22 08:00 Dose: 50 mg Miscellaneous (Lifitegrast [Xiidra] 5 % ~ Order Awaiting Action) 1 each N/A QS [facility] Stop: 02/15/22 00:00 Last Admin: 01/16/22 07:55 Dose: Not Given Morphine Sulfate (Morphine Sulfate 4 Mg/Ml 1 Ml Carp\Vial) 3 mg IV Q3H PRN PRN Reason: Pain Stop: 01/29/22 16:26 Last Admin: 01/16/22 06:05 Dose: 3 mg Morphine Sulfate (Morphine Sulfate 10 Mg/Ml Carp/Vial) 2 mg IV Q5M PRN PRN Reason: PACU Use Only-Pain Stop: 01/16/22 16:01 Ondansetron HCl (Ondansetron Inj 2 Mg/Ml 2 Ml Vial) 4 mg IV ONCE PRN PRN Reason: PACU Use Only-Nausea/Vomiting Stop: 01/16/22 16:01 Simvastatin (Simvastatin 20 Mg Tab) 20 mg PO HS [facility] Stop: 02/14/22 20:59 Last Admin: 01/15/22 20:43 Dose: 20 mg
[2022-01-16] MEDS: METOPROLOL SUCC 50MG EXT REL TAB PO SCH ×2 (08:00→20:29)
[2022-01-16] MEDS: busPIRone 5 MG TAB PO SCH ×2 (08:00→20:28)
[2022-01-16] MEDS ORDERED: fentaNYL citrate 100 MCG/2 ML VIAL IV PRN (08:01)
[2022-01-16] MEDS ORDERED: ALBUT/IPRATROP 3MG/0.5MG NEB 3 ML VIAL INH PRN (08:01)
[2022-01-16] MEDS ORDERED: MoRPHine SULFATE 10 MG/ML CARP/VIAL IV PRN (08:01)
[2022-01-16] MEDS ORDERED: MEPERIDINE HCL 25 MG/ML CARP/VIAL IV PRN (08:01)
[2022-01-16] MEDS ORDERED: ONDANSETRON INJ 2 MG/ML 2 ML VIAL IV PRN (08:01)
[2022-01-16] MEDS ORDERED: ATROPINE SULFATE 0.1 MG/ML 10ML SYR IV PRN (08:01)
[2022-01-16] MEDS ORDERED: ePHEDrine sulfate 50 MG/ML AMP IV PRN (08:01)
[2022-01-16] MEDS ORDERED: BUPIVACAINE/EPINEPHRINE 0.5% MPF 1:200,000 30 ML VIAL ONE (09:39)
[2022-01-16] MEDS ORDERED: fentaNYL citrate 100 MCG/2 ML VIAL ONE (09:42)
[2022-01-16] MEDS ORDERED: MIDAZOLAM HCL 1 MG/ML 2ML VIAL ONE (09:42)
[2022-01-16] MEDS ORDERED: LIDOCAINE 2% 2 ML VIAL/AMP(20MG/ML) INFIL ONE (09:43)
[2022-01-16] MEDS ORDERED: DEXAMETHASONE SOD INJ 4 MG/ML VIAL ONE (09:43)
[2022-01-16] MEDS ORDERED: ONDANSETRON INJ 2 MG/ML 2 ML VIAL ONE (09:43)
[2022-01-16] MEDS ORDERED: PROPOFOL IV EMULSION 10 MG/ML 20 ML VIAL IV ONE (09:43)
[2022-01-16] MEDS ORDERED: ceFAZolin 330 MG/ML 1 GM VIAL ONE (10:43)
--- NOTE | 2022-01-16 10:59 | Post Operative Brief Note ---
Immediate Post Op Note v1 Date of Surgery January 16, 2022 Pre & Post Diagnosis Operation Date: 01/16/22 11:00 Pre-Op Diagnosis: PERIRECTAL ABSCESS Post-Op Diagnosis: PERIRECTAL ABSCESS I identified the patient and participated in the time-out.: Yes Procedure Operation Date: 01/16/22 11:00 Actual Procedures p Arlene Rectal Abscess Incison and Drainage(Not Applicable) - Julio Watkins MD Surgeon Julio Watkins MD Computational Biologist none Estimated Blood Loss 10 Findings Consistent with Post-Op Diagnosis
--- NOTE | 2022-01-16 11:34 | Operative Report (OR) ---
DATE OF SURGERY: 01/16/2022. PREOPERATIVE DIAGNOSIS: Perirectal abscess 12 o'clock position. POSTOPERATIVE DIAGNOSIS: Perirectal abscess, left lateral tracking posteriorly. PROCEDURES PERFORMED: Exam under anesthesia and I and D of perirectal abscess. SURGEON: Julio Watkins M.D. ANESTHESIA: General endotracheal with 0.5% Marcaine with epinephrine local. ESTIMATED BLOOD LOSS: 10 mL MAINFRAME ANALYST: None. COMPLICATIONS: None. DRAINS: None. SPECIMENS: None. INDICATIONS FOR PROCEDURE: This is a 62-year-old female with perirectal pain and perirectal abscess. She had a CT scan, which showed a 3 cm perirectal abscess. We will plan on taken to the OR for exa m under anesthesia and I and D of the abscess. DESCRIPTION OF PROCEDURE: The patient was taken to the OR and placed in the lithotomy position. She had good exam under anesthesia. She was prepped and draped in normal sterile fashion. She underwen t excellent general endotracheal anesthesia. Her rectum was then probed. There was no obvious outsi de mass extension of the abscess. Good digital exam was performed. It appeared to be more of left l ateral incision, was made at about the 2 o'clock position and this was opened widely. There was no i nitial purulent material, but this was tracked posteriorly and therefore cavity was entered posterior ly and drained. There was minimal purulent material. There was mainly inflammation and loculations, but these were broken up widely. The abdomen was then irrigated out and suctioned clear. Iodoform gauze was then used to pack the dressing and a sterile dressing was applied. She tolerated the proce dure well with no complications and sent to the postoperative recovery for a period of observation, d ischarged to her room when she meets criteria. Job ID: [id number]
--- NOTE | 2022-01-16 12:17 | Anesthesiology Progress Note ---
Date of Service January 16, 2022 Anesthesia Post Procedure Vital Signs Vital Signs: Temp Pulse Pulse Pulse Resp BP BP 01/16/22 11:39 36.8 C 01/16/22 11:30 98 H 18 109/72 01/16/22 11:20 96 H 18 116/72 01/16/22 11:10 90 16 98/57 L 01/16/22 11:02 36.8 C 92 H 16 91/60 L 01/16/22 08:19 37.2 C 91 H 20 108/72 01/16/22 07:39 99 H 01/16/22 02:56 36.9 C 90 18 112/72 01/15/22 22:05 88 01/15/22 23:00 37.0 C 92 H 18 101/65 01/15/22 19:30 36.7 C 95 H 18 118/76 01/15/22 18:39 95 H 01/15/22 18:15 36.2 C L 16 118/76 01/15/22 18:10 132/74 01/15/22 14:00 90 24 01/15/22 14:00 120/76 01/15/22 13:30 90 15 01/15/22 13:30 118/74 01/15/22 13:00 82 16 01/15/22 13:00 99/67 L 01/15/22 12:30 85 24 01/15/22 12:30 105/60 01/15/22 12:21 121/66 01/15/22 12:21 92 H 26 H Pulse Ox O2 Del Method O2 Flow Rate 01/16/22 11:39 01/16/22 11:30 96 Nasal Cannula 4 01/16/22 11:20 96 Oxymask 6 01/16/22 11:10 96 Oxymask 6 01/16/22 11:02 96 Oxymask 6 01/16/22 08:19 97 Room Air 01/16/22 07:39 01/16/22 02:56 94 Room Air 01/15/22 22:05 01/15/22 23:00 95 Room Air 01/15/22 19:30 96 Room Air 01/15/22 18:39 01/15/22 18:15 96 Room Air 01/15/22 18:10 01/15/22 14:00 99 01/15/22 14:00 01/15/22 13:30 01/15/22 13:30 01/15/22 13:00 01/15/22 13:00 01/15/22 12:30 01/15/22 12:30 01/15/22 12:21 01/15/22 12:21 Pain Intensity Rectal: Pain Intensity: 10 Transfer of Care Handoff Completed per policy Notes Mental Status: alert / awake / arousable Patient Amnestic to Procedure: Yes Nausea / Vomiting: adequately controlled Pain: adequately controlled Airway Patency, RR, SpO2: stable & adequate BP & HR: stable & adequate Hydration State: stable & adequate Anesthetic Complications: no major complications apparent and Pt Satisfied with anesthetic care
[2022-01-16] MEDS ORDERED: Nursing to Pharmacy Communication SCH (15:45)
[2022-01-16] MEDS: SIMVASTATIN 20 MG TAB PO SCH (20:28)
[2022-01-17] MEDS: MoRPHine SULFATE 4 MG/ML 1 ML CARP\\VIAL IV PRN ×3 (01:32→22:11)
[2022-01-17] MEDS: PIPERACILLIN/TAZOBACTAM 3.375 GM in DEXTROSE 5% 100 ML IV SCH ×3 (03:48→20:12)
[2022-01-17 06:41] LABS: Hematocrit (blood only) 30.1 % (34.1-44.9); Hemoglobin 10.3 g/dl (12.0-16.0); Mean Corpuscular Hemoglobin 29.1 pg (25.0-34.0); Mean Corpuscular Hgb Conc 34.2 g/dL (32.0-36.0); Mean Platelet Volume 9.5 fL (9.4-12.3); Platelet Count 346 K/uL (130-400); RDW Coefficient of Variation 14.6 % (11.5-14.5); RDW Standard Deviation 45.1 fL (36.4-46.3); Red Blood Count 3.54 M/uL (3.93-5.22); White Blood Count 14.31 K/ul (4.8-10.8)
[2022-01-17 07:04] LABS: BUN Creatinine Ratio 10.2 (10-20); Calcium 8.6 mg/dl (8.5-10.1); Creatinine Clr Calc Pharmacy 100.3 ml/min; Est GFR (African American) 122.7 ml/min; Est GFR (Non-African American) 105.9 ml/min; Magnesium 2.2 mg/dl (1.7-2.4); Phosphorus 3.4 mg/dl (2.5-4.9); Potassium 3.3 mmol/L (3.5-5.1)
[2022-01-17] MEDS ORDERED: POTASSIUM CHLORIDE CRTAB 20 MEQ TABCR PO STA (08:05)
--- NOTE | 2022-01-17 08:07 | Hospitalist Progress Note ---
Date of Service January 17, 2022 Assessment & Plan (1) Perirectal abscess: Plan: - CT pelvis - 3.1 cm perianal abscess at the 12:00 position with surrounding cellulitis as detailed above. - fever noted at home, pain in perrectal area in last 1-2 weeks - blood cultures obtained and will follow results - surgery contacted by ED, recommend IV Abx and pt was started on zosyn - s/p I&D yesterday (01/16) - packing removed by surgery today, bloody drainage noted - Continue to closely monitor (2) DM type 2 (diabetes mellitus, type 2): Plan: A1c 6.3% in 02/2021 - hold home metformin - cont. to monitor blood glc level while inpt (3) Hyperlipidemia: Plan: - cont. home on statin (4) Hypertension: Plan: - hold home lisinopril for now, cont. metoprolol 50 bid Anxiety - cont. home Buspar DVT ppx: SCDs, pt ambulatory Admission and Anticipated Discharge Date Admission Date: January 16, 2022 Subjective Pt seen in follow up of perirectal abscess S/p I&D yesterday Today packing removed by surgery Pt reports to be in pain when packing removed, bloody drainage also noted Patient otherwise denies any chest pain shortness of breath, abdominal pain, nausea vomiting Review of Systems Review of Systems: All systems reviewed & are unremarkable except as noted in Subjective Physical Exam Physical Exam: Constitutional:I WD/WN, vitals as a dana Eyes: PERRL, EOMI, conju nctivae normal, an icteric sclerae ENMT: external ear and n ose normal, oropha rynx normal Neck: supple Respiratory: normal respiratory effort, lungs eliazar ar to auscultation Cardiovascular:I RRR, no murmur, no edema Chest (Breasts): Chest: normal insp ection of chest Gastrointestinal ( Abdomen): normal bowel sound s, soft, nontender Musculoskeletal: extremities motor strength 5/5 Skin: no rashes, warm an d dry Neurologic: PERRL, EOMI,no fac e palsy, no dysart hria, moves extrem ities Psychiatric: A+Ox3, euthymic af fect Lymphatic: no lymphedema Results & Data Results & Data ([facility]) Vital Signs (Past 12 Hours) Vital Signs Temp Pulse Resp BP BP Pulse Ox O2 Del Method 01/17/22 07:41 36.6 C 99 H 18 131/88 97 Room Air 01/17/22 02:57 36.9 C 91 H 18 117/71 96 Room Air 01/16/22 23:22 36.7 C 87 18 100/65 96 Room Air 01/16/22 20:27 93 H 16 132/73 96 Room Air Laboratory Results 01/17/22 01/17/22 01/17/22 Range/Units 07:34 05:47 05:47 WBC 14.31 H (4.8-10.8) K/ul RBC 3.54 L (3.93-5.22) M/uL Hgb 10.3 L (12.0-16.0) g/dl Hct 30.1 L (34.1-44.9) % MCV 85.0 (80.0-100.0) fL MCH 29.1 (25.0-34.0) pg MCHC 34.2 (32.0-36.0) g/dL RDW Std Deviation 45.1 (36.4-46.3) fL RDW Coeff of Maryann 14.6 H (11.5-14.5) % Plt Count 346 (130-400) K/uL MPV 9.5 (9.4-12.3) fL Sodium 137 (136-145) mmol/L Potassium 3.3 L (3.5-5.1) mmol/L Chloride 104 (98-107) mmol/L Carbon Dioxide 25 (21-32) mmol/L Anion Gap 8 (3-11) BUN 5 L (6-23) mg/dl Creatinine 0.49 L (0.6-1.2) mg/dl Est Cr Clr Drug Dosing 100.3 ml/min Est GFR ( Amer) 122.7 ml/min Est GFR (Non-Af Amer) 105.9 ml/min BUN/Creatinine Ratio 10.2 (10-20) Glucose 123 H (70-99(Fasting)) mg/dl POC Glucose 128 H (70-99) mg/dl Calcium 8.6 (8.5-10.1) mg/dl Phosphorus 3.4 (2.5-4.9) mg/dl Magnesium 2.2 (1.7-2.4) mg/dl 11/01/16/22 01/16/22 Range/Units 20:35 16:35 12:39 WBC (4.8-10.8) K/ul RBC (3.93-5.22) M/uL Hgb (12.0-16.0) g/dl Hct (34.1-44.9) % MCV (80.0-100.0) fL MCH (25.0-34.0) pg MCHC (32.0-36.0) g/dL RDW Std Deviation (36.4-46.3) fL RDW Coeff of Maryann (11.5-14.5) % Plt Count (130-400) K/uL MPV (9.4-12.3) fL Sodium (136-145) mmol/L Potassium (3.5-5.1) mmol/L Chloride (98-107) mmol/L Carbon Dioxide (21-32) mmol/L Anion Gap (3-11) BUN (6-23) mg/dl Creatinine (0.6-1.2) mg/dl Est Cr Clr Drug Dosing ml/min Est GFR ( Amer) ml/min Est GFR (Non-Af Amer) ml/min BUN/Creatinine Ratio (10-20) Glucose (70-99(Fasting)) mg/dl POC Glucose 213 H 218 H 140 H (70-99) mg/dl Calcium (8.5-10.1) mg/dl Phosphorus (2.5-4.9) mg/dl Magnesium (1.7-2.4) mg/dl 01/16/22 Range/Units 11:09 WBC (4.8-10.8) K/ul RBC (3.93-5.22) M/uL Hgb (12.0-16.0) g/dl Hct (34.1-44.9) % MCV (80.0-100.0) fL MCH (25.0-34.0) pg MCHC (32.0-36.0) g/dL RDW Std Deviation (36.4-46.3) fL RDW Coeff of Maryann (11.5-14.5) % Plt Count (130-400) K/uL MPV (9.4-12.3) fL Sodium (136-145) mmol/L Potassium (3.5-5.1) mmol/L Chloride (98-107) mmol/L Carbon Dioxide (21-32) mmol/L Anion Gap (3-11) BUN (6-23) mg/dl Creatinine (0.6-1.2) mg/dl Est Cr Clr Drug Dosing ml/min Est GFR ( Amer) ml/min Est GFR (Non-Af Amer) ml/min BUN/Creatinine Ratio (10-20) Glucose (70-99(Fasting)) mg/dl POC Glucose 124 H (70-99) mg/dl Calcium (8.5-10.1) mg/dl Phosphorus (2.5-4.9) mg/dl Magnesium (1.7-2.4) mg/dl Medications Administered Current Inpatient Medications Acetaminophen (Acetaminophen 325 Mg Tab) 650 mg PO Q4H PRN PRN Reason: Pain or Fever Stop: 02/14/22 15:19 Last Admin: 01/15/22 18:47 Dose: 650 mg Buspirone HCl (Buspirone 5 Mg Tab) 10 mg PO QAM [facility] Stop: 02/15/22 08:59 Last Admin: 01/16/22 08:00 Dose: 10 mg Buspirone HCl (Buspirone 5 Mg Tab) 20 mg PO HS [facility] Stop: 02/14/22 20:59 Last Admin: 01/16/22 20:28 Dose: 20 mg Calcium Carbonate (Calcium Carbonate 500 Mg Chewable Tab) 500 mg PO Q6H PRN PRN Reason: Indigestion Stop: 02/14/22 17:03 Piperacillin Sod/Tazobactam (Sod 3.375 gm/ Dextrose) 115 mls @ 28.75 mls/hr IV Q8H [facility]; Protocol Stop: 01/17/22 19:29 Last Admin: 01/17/22 03:48 Dose: 28.8 mls/hr Insulin Aspart (Insulin Aspart Per Unit) 0 units SC ACHS [facility] Stop: 02/15/22 16:29 Last Admin: 01/16/22 21:25 Dose: 3 units Metoprolol Succinate (Metoprolol Succ 50mg Ext Rel Tab) 50 mg PO BID [place] Stop: 02/14/22 20:59 Last Admin: 01/16/22 20:29 Dose: 50 mg Miscellaneous (Lifitegrast [Xiidra] 5 % ~ Order Awaiting Action) 1 each N/A QS [place] Stop: 02/15/22 00:00 Last Admin: 01/17/22 00:00 Dose: Not Given Morphine Sulfate (Morphine Sulfate 4 Mg/Ml 1 Ml Carp\Vial) 3 mg IV Q3H PRN PRN Reason: Pain Stop: 01/29/22 16:26 Last Admin: 01/17/22 06:20 Dose: 3 mg Morphine Sulfate (Morphine Sulfate 2 Mg/Ml Carp) 2 mg IV Q4 PRN PRN Reason: Moderate Pain Stop: 01/30/22 12:05 Morphine Sulfate (Morphine Sulfate 4 Mg/Ml 1 Ml Carp\Vial) 4 mg IV Q4 PRN PRN Reason: Severe Pain Stop: 01/30/22 12:05 Oxycodone/Acetaminophen (Oxycodone/Acetaminophen 5mg/325mg Tab) 1 tab PO Q4H PRN PRN Reason: Pain Stop: 01/30/22 12:05 Oxycodone/Acetaminophen (Oxycodone/Acetaminophen 5mg/325mg Tab) 2 tab PO Q4H PRN PRN Reason: Pain Stop: 01/30/22 12:05 Potassium Chloride (Potassium Chloride Crtab 20 Meq Tabcr) 40 meq PO NOW STA Stop: 01/17/22 08:06 Simvastatin (Simvastatin 20 Mg Tab) 20 mg PO HS [place] Stop: 02/14/22 20:59 Last Admin: 01/16/22 20:28 Dose: 20 mg
[2022-01-17] MEDS: INSULIN ASPART PER UNIT SC SCH ×4 (09:04→22:12)
[2022-01-17] MEDS: oxyCODONE/ACETAMINOPHEN 5mg/325mg TAB PO PRN ×2 (09:15→17:19)
[2022-01-17] MEDS: METOPROLOL SUCC 50MG EXT REL TAB PO SCH ×2 (09:16→20:14)
[2022-01-17] MEDS: busPIRone 5 MG TAB PO SCH ×2 (09:16→20:15)
--- NOTE | 2022-01-17 11:28 | Surgery Progress Note ---
Date of Service January 17, 2022 Assessment & Plan (1) Perianal abscess: Plan: POD # 1 s/p Incision and drainage of perirectal abscess -afebrile, leukocytosis of 14k - moderate postop pain but slightly improved to preop - no n,v Plan: continue pain management as needed packing removed, ABD over incision and change as needed. Colace BID to start now advance diet as tolerated repeat cbc in am Hopefully home tomorrow Dr. Verma has seen and examined patient agrees with above. Admission and Anticipated Discharge Date Admission Date: January 16, 2022 Subjective having some pain, not as severe as prior to OR having a lot of bloody drainage tolerating clear liquids Physical Exam Constitutional: WD/WN, vitals as above no acute distress and not ill appearing Respiratory: normal respiratory effort; no respiratory distress Gastrointestinal (Abdomen): There is 3 o'clock incision with packing present. Some mild surroudidng erythema. Tender to palpation Skin: no rashes, warm and dry Psychiatric: Orientation: alert and oriented x 3 Results & Data ([facility]) Vital Signs (Past 12 Hours) Vital Signs Temp Pulse Resp BP Pulse Ox O2 Del Method 01/17/22 07:41 36.6 C 99 H 18 131/88 97 Room Air 01/17/22 02:57 36.9 C 91 H 18 117/71 96 Room Air Laboratory Results 01/17/22 01/17/22 01/17/22 Range/Units 07:34 05:47 05:47 WBC 14.31 H (4.8-10.8) K/ul RBC 3.54 L (3.93-5.22) M/uL Hgb 10.3 L (12.0-16.0) g/dl Hct 30.1 L (34.1-44.9) % MCV 85.0 (80.0-100.0) fL MCH 29.1 (25.0-34.0) pg MCHC 34.2 (32.0-36.0) g/dL RDW Std Deviation 45.1 (36.4-46.3) fL RDW Coeff of Maryann 14.6 H (11.5-14.5) % Plt Count 346 (130-400) K/uL MPV 9.5 (9.4-12.3) fL Sodium 137 (136-145) mmol/L Potassium 3.3 L (3.5-5.1) mmol/L Chloride 104 (98-107) mmol/L Carbon Dioxide 25 (21-32) mmol/L Anion Gap 8 (3-11) BUN 5 L (6-23) mg/dl Creatinine 0.49 L (0.6-1.2) mg/dl Est Cr Clr Drug Dosing 100.3 ml/min Est GFR ( Amer) 122.7 ml/min Est GFR (Non-Af Amer) 105.9 ml/min BUN/Creatinine Ratio 10.2 (10-20) Glucose 123 H (70-99(Fasting)) mg/dl POC Glucose 128 H (70-99) mg/dl Calcium 8.6 (8.5-10.1) mg/dl Phosphorus 3.4 (2.5-4.9) mg/dl Magnesium 2.2 (1.7-2.4) mg/dl 01/16/22 01/16/22 01/16/22 Range/Units 20:35 16:35 12:39 WBC (4.8-10.8) K/ul RBC (3.93-5.22) M/uL Hgb (12.0-16.0) g/dl Hct (34.1-44.9) % MCV (80.0-100.0) fL MCH (25.0-34.0) pg MCHC (32.0-36.0) g/dL RDW Std Deviation (36.4-46.3) fL RDW Coeff of Maryann (11.5-14.5) % Plt Count (130-400) K/uL MPV (9.4-12.3) fL Sodium (136-145) mmol/L Potassium (3.5-5.1) mmol/L Chloride (98-107) mmol/L Carbon Dioxide (21-32) mmol/L Anion Gap (3-11) BUN (6-23) mg/dl Creatinine (0.6-1.2) mg/dl Est Cr Clr Drug Dosing ml/min Est GFR ( Amer) ml/min Est GFR (Non-Af Amer) ml/min BUN/Creatinine Ratio (10-20) Glucose (70-99(Fasting)) mg/dl POC Glucose 213 H 218 H 140 H (70-99) mg/dl Calcium (8.5-10.1) mg/dl Phosphorus (2.5-4.9) mg/dl Magnesium (1.7-2.4) mg/dl
[2022-01-17] MEDS: DOCUSATE SODIUM 100 MG CAP PO SCH ×2 (12:25→20:15)
[2022-01-17] MEDS: SIMVASTATIN 20 MG TAB PO SCH (20:14)
[2022-01-18] MEDS: PIPERACILLIN/TAZOBACTAM 3.375 GM in DEXTROSE 5% 100 ML IV SCH ×3 (03:03→20:28)
[2022-01-18] MEDS: ACETAMINOPHEN 325 MG TAB PO PRN (03:21)
[2022-01-18] MEDS: oxyCODONE/ACETAMINOPHEN 5mg/325mg TAB PO PRN ×2 (04:51→12:43)
[2022-01-18] MEDS: METOPROLOL SUCC 50MG EXT REL TAB PO SCH ×2 (07:35→21:09)
[2022-01-18] MEDS: busPIRone 5 MG TAB PO SCH ×2 (07:35→21:08)
[2022-01-18] MEDS: DOCUSATE SODIUM 100 MG CAP PO SCH ×2 (07:35→21:09)
[2022-01-18] MEDS: INSULIN ASPART PER UNIT SC SCH ×4 (08:23→21:09)
[2022-01-18 10:00] LABS: Basophils # (auto) 0.11 K/uL (0-0.2); Basophils % (auto) 0.7 %; Eosinophils # (auto) 0.48 K/uL (0-0.50); Eosinophils % (auto) 3.2 %; Hematocrit (blood only) 33.5 % (34.1-44.9); Hemoglobin 11.4 g/dl (12.0-16.0); Immature Granulocytes # (auto) 0.16 K/uL (0.00-0.02); Immature Granulocytes % (auto) 1.1 %; Lymphocytes # (auto) 2.93 K/uL (1.2-3.4); Lymphocytes % (auto) 19.7 %; Mean Corpuscular Hemoglobin 28.8 pg (25.0-34.0); Mean Corpuscular Volume 84.6 fL (80.0-100.0); Mean Platelet Volume 9.5 fL (9.4-12.3); Monocytes # (auto) 0.77 K/uL (0.24-0.82); Monocytes % (auto) 5.2 %; Neutrophils # (auto) 10.44 K/uL (1.4-6.5); Neutrophils % (auto) 70.1 %; Platelet Count 404 K/uL (130-400); RDW Coefficient of Variation 14.7 % (11.5-14.5); RDW Standard Deviation 45.6 fL (36.4-46.3); Red Blood Count 3.96 M/uL (3.93-5.22); White Blood Count 14.89 K/ul (4.8-10.8)
[2022-01-18 13:43] LABS: BUN Creatinine Ratio 15.3 (10-20); Calcium 9.7 mg/dl (8.5-10.1); Creatinine Clr Calc Pharmacy 83.6 ml/min; Est GFR (African American) 115.5 ml/min; Est GFR (Non-African American) 99.6 ml/min
--- NOTE | 2022-01-18 15:32 | Hospitalist Progress Note ---
Date of Service January 18, 2022 Assessment & Plan (1) Perirectal abscess: Plan: - CT pelvis - 3.1 cm perianal abscess at the 12:00 position with surrounding cellulitis as detailed above. - fever noted at home, pain in perrectal area in last 1-2 weeks - blood cultures obtained and will follow results - no growth to date - surgery contacted by ED, recommend IV Abx and pt was started on zosyn - s/p I&D by gen. surgery (01/16) - packing removed by surgery yesterday, bloody drainage noted - overnight pt febrile 38.6C - repeat blood cultx now, cont. zosyn, add doxy for now, will further discuss w/ surgery - Continue to closely monitor (2) DM type 2 (diabetes mellitus, type 2): Plan: A1c 6.3% in 02/2021 - hold home metformin - cont. to monitor blood glc level while inpt (3) Hyperlipidemia: Plan: - cont. home on statin (4) Hypertension: Plan: - hold home lisinopril for now, cont. metoprolol 50 bid Anxiety - cont. home Buspar DVT ppx: SCDs, pt ambulatory Admission and Anticipated Discharge Date Admission Date: January 16, 2022 Subjective Pt seen in follow up of perirectal abscess S/p I&D 2 days ago Packing removed by surgery yesterday Pt febrile overnight 38.6C. She reports that she had a BM last evening and then she had fever, chills, sweats later. Pain is better controlled now. Patient otherwise denies any chest pain shortness of breath, abdominal pain, nausea vomiting Review of Systems Review of Systems: All systems reviewed & are unremarkable except as noted in Subjective Physical Exam Physical Exam: Constitutional:I WD/WN, vitals as a dana Eyes: PERRL, EOMI, conju nctivae normal, an icteric sclerae ENMT: external ear and n ose normal, oropha rynx normal Neck: supple Respiratory: normal respiratory effort, lungs eliazar ar to auscultation Cardiovascular:I RRR, no murmur, no edema Chest (Breasts): Chest: normal insp ection of chest Gastrointestinal ( Abdomen): normal bowel sound s, soft, nontender Musculoskeletal: extremities motor strength 5/5 Skin: no rashes, warm an d dry Neurologic: PERRL, EOMI,no fac e palsy, no dysart hria, moves extrem ities Psychiatric: A+Ox3, euthymic af fect Lymphatic: no lymphedema Results & Data Results & Data ([facility]) Vital Signs (Past 12 Hours) Vital Signs Temp Pulse Pulse Resp BP Pulse Ox O2 Del Method 01/18/22 14:47 37.7 C H 104 H 16 126/67 95 Room Air 01/18/22 11:14 36.6 C 86 18 109/72 94 Room Air 01/18/22 07:47 36.8 C 82 20 107/69 96 Room Air 01/18/22 04:55 37.0 C Laboratory Results 01/18/22 01/18/22 01/18/22 Range/Units 11:27 09:29 09:25 WBC 14.89 H (4.8-10.8) K/ul RBC 3.96 (3.93-5.22) M/uL Hgb 11.4 L (12.0-16.0) g/dl Hct 33.5 L (34.1-44.9) % MCV 84.6 (80.0-100.0) fL MCH 28.8 (25.0-34.0) pg MCHC 34.0 (32.0-36.0) g/dL RDW Std Deviation 45.6 (36.4-46.3) fL RDW Coeff of Maryann 14.7 H (11.5-14.5) % Plt Count 404 H (130-400) K/uL MPV 9.5 (9.4-12.3) fL Immature Gran % (Auto) 1.1 % Neut % (Auto) 70.1 % Lymph % (Auto) 19.7 % Mccormick % (Auto) 5.2 % Eos % (Auto) 3.2 % Baso % (Auto) 0.7 % Neut # (Auto) 10.44 H (1.4-6.5) K/uL Lymph # (Auto) 2.93 (1.2-3.4) K/uL Mccormick # (Auto) 0.77 (0.24-0.82) K/uL Eos # (Auto) 0.48 (0-0.50) K/uL Baso # (Auto) 0.11 (0-0.2) K/uL Immature Gran # (Auto) 0.16 H (0.00-0.02) K/uL Sodium 138 (136-145) mmol/L Potassium 4.0 D (3.5-5.1) mmol/L Chloride 102 (98-107) mmol/L Carbon Dioxide 27 (21-32) mmol/L Anion Gap 9 (3-11) BUN 9 (6-23) mg/dl Creatinine 0.59 L (0.6-1.2) mg/dl Est Cr Clr Drug Dosing 83.6 ml/min Est GFR ( Amer) 115.5 ml/min Est GFR (Non-Af Amer) 99.6 ml/min BUN/Creatinine Ratio 15.3 (10-20) Glucose 170 H (70-99(Fasting)) mg/dl POC Glucose 127 H (70-99) mg/dl Calcium 9.7 (8.5-10.1) mg/dl Hepatitis C Ab (EIA) (NON-REACTIVE) Hep C Ab Signal/Cutoff (<1.00) 01/18/22 01/17/22 01/17/22 Range/Units 07:37 20:34 16:36 WBC (4.8-10.8) K/ul RBC (3.93-5.22) M/uL Hgb (12.0-16.0) g/dl Hct (34.1-44.9) % MCV (80.0-100.0) fL MCH (25.0-34.0) pg MCHC (32.0-36.0) g/dL RDW Std Deviation (36.4-46.3) fL RDW Coeff of Maryann (11.5-14.5) % Plt Count (130-400) K/uL MPV (9.4-12.3) fL Immature Gran % (Auto) % Neut % (Auto) % Lymph % (Auto) % Mccormick % (Auto) % Eos % (Auto) % Baso % (Auto) % Neut # (Auto) (1.4-6.5) K/uL Lymph # (Auto) (1.2-3.4) K/uL Mccormick # (Auto) (0.24-0.82) K/uL Eos # (Auto) (0-0.50) K/uL Baso # (Auto) (0-0.2) K/uL Immature Gran # (Auto) (0.00-0.02) K/uL Sodium (136-145) mmol/L Potassium (3.5-5.1) mmol/L Chloride (98-107) mmol/L Carbon Dioxide (21-32) mmol/L Anion Gap (3-11) BUN (6-23) mg/dl Creatinine (0.6-1.2) mg/dl Est Cr Clr Drug Dosing ml/min Est GFR ( Amer) ml/min Est GFR (Non-Af Amer) ml/min BUN/Creatinine Ratio (10-20) Glucose (70-99(Fasting)) mg/dl POC Glucose 132 H 169 H 185 H (70-99) mg/dl Calcium (8.5-10.1) mg/dl Hepatitis C Ab (EIA) (NON-REACTIVE) Hep C Ab Signal/Cutoff (<1.00) 01/16/22 Range/Units 06:47 WBC (4.8-10.8) K/ul RBC (3.93-5.22) M/uL Hgb (12.0-16.0) g/dl Hct (34.1-44.9) % MCV (80.0-100.0) fL MCH (25.0-34.0) pg MCHC (32.0-36.0) g/dL RDW Std Deviation (36.4-46.3) fL RDW Coeff of Maryann (11.5-14.5) % Plt Count (130-400) K/uL MPV (9.4-12.3) fL Immature Gran % (Auto) % Neut % (Auto) % Lymph % (Auto) % Mccormick % (Auto) % Eos % (Auto) % Baso % (Auto) % Neut # (Auto) (1.4-6.5) K/uL Lymph # (Auto) (1.2-3.4) K/uL Mccormick # (Auto) (0.24-0.82) K/uL Eos # (Auto) (0-0.50) K/uL Baso # (Auto) (0-0.2) K/uL Immature Gran # (Auto) (0.00-0.02) K/uL Sodium (136-145) mmol/L Potassium (3.5-5.1) mmol/L Chloride (98-107) mmol/L Carbon Dioxide (21-32) mmol/L Anion Gap (3-11) BUN (6-23) mg/dl Creatinine (0.6-1.2) mg/dl Est Cr Clr Drug Dosing ml/min Est GFR ( Amer) ml/min Est GFR (Non-Af Amer) ml/min BUN/Creatinine Ratio (10-20) Glucose (70-99(Fasting)) mg/dl POC Glucose (70-99) mg/dl Calcium (8.5-10.1) mg/dl Hepatitis C Ab (EIA) NON-REACTIVE (NON-REACTIVE) Hep C Ab Signal/Cutoff <0.02 (<1.00) Medications Administered Current Inpatient Medications Acetaminophen (Acetaminophen 325 Mg Tab) 650 mg PO Q4H PRN PRN Reason: Pain or Fever Stop: 02/14/22 15:19 Last Admin: 01/18/22 03:21 Dose: 650 mg Buspirone HCl (Buspirone 5 Mg Tab) 10 mg PO QAM [facility] Stop: 02/15/22 08:59 Last Admin: 01/18/22 07:35 Dose: 10 mg Buspirone HCl (Buspirone 5 Mg Tab) 20 mg PO HS [facility] Stop: 02/14/22 20:59 Last Admin: 01/17/22 20:15 Dose: 20 mg Calcium Carbonate (Calcium Carbonate 500 Mg Chewable Tab) 500 mg PO Q6H PRN PRN Reason: Indigestion Stop: 02/14/22 17:03 Docusate Sodium (Docusate Sodium 100 Mg Cap) 100 mg PO BID [facility] Stop: 02/16/22 11:14 Last Admin: 01/18/22 07:35 Dose: 100 mg Piperacillin Sod/Tazobactam (Sod 3.375 gm/ Dextrose) 115 mls @ 28.75 mls/hr IV Q8H [facility]; Protocol Stop: 01/22/22 19:29 Last Admin: 01/18/22 12:37 Dose: 28.8 mls/hr Insulin Aspart (Insulin Aspart Per Unit) 0 units SC ACHS [facility] Stop: 02/15/22 16:29 Last Admin: 01/18/22 11:30 Dose: Not Given Ketorolac Tromethamine (Ketorolac Tromethamine 15 Mg/Ml Vial) 15 mg IV Q6H PRN PRN Reason: moderate pain Stop: 01/22/22 16:47 Metoprolol Succinate (Metoprolol Succ 50mg Ext Rel Tab) 50 mg PO BID [place] Stop: 02/14/22 20:59 Last Admin: 01/18/22 07:35 Dose: 50 mg Miscellaneous (Lifitegrast [Xiidra] 5 % ~ Order Awaiting Action) 1 each N/A QS [place] Stop: 02/15/22 00:00 Last Admin: 01/18/22 12:38 Dose: Not Given Morphine Sulfate (Morphine Sulfate 4 Mg/Ml 1 Ml Carp\Vial) 3 mg IV Q3H PRN PRN Reason: Pain Stop: 01/29/22 16:26 Last Admin: 01/17/22 06:20 Dose: 3 mg Morphine Sulfate (Morphine Sulfate 2 Mg/Ml Carp) 2 mg IV Q4 PRN PRN Reason: Moderate Pain Stop: 01/30/22 12:05 Morphine Sulfate (Morphine Sulfate 4 Mg/Ml 1 Ml CarpVial) 4 mg IV Q4 PRN PRN Reason: Severe Pain Stop: 01/30/22 12:05 Last Admin: 01/17/22 22:11 Dose: 4 mg Oxycodone/Acetaminophen (Oxycodone/Acetaminophen 5mg/325mg Tab) 1 tab PO Q4H PRN PRN Reason: Pain Stop: 01/30/22 12:05 Last Admin: 01/18/22 12:43 Dose: 1 tab Oxycodone/Acetaminophen (Oxycodone/Acetaminophen 5mg/325mg Tab) 2 tab PO Q4H PRN PRN Reason: Pain Stop: 01/30/22 12:05 Last Admin: 01/18/22 04:51 Dose: 2 tab Simvastatin (Simvastatin 20 Mg Tab) 20 mg PO HS [place] Stop: 02/14/22 20:59 Last Admin: 01/17/22 20:14 Dose: 20 mg
[2022-01-18] MEDS: DOXYCYCLINE HYCLATE 100 MG in DEXTROSE 5% 100 ML IV SCH (17:59)
[2022-01-18] MEDS: KETOROLAC TROMETHAMINE 15 MG/ML VIAL IV PRN (18:06)
[2022-01-18] MEDS: SIMVASTATIN 20 MG TAB PO SCH (21:09)
[2022-01-19] MEDS: MoRPHine SULFATE 4 MG/ML 1 ML CARP\\VIAL IV PRN (02:30)
[2022-01-19] MEDS: PIPERACILLIN/TAZOBACTAM 3.375 GM in DEXTROSE 5% 100 ML IV SCH ×3 (02:40→19:51)
[2022-01-19] MEDS: DOXYCYCLINE HYCLATE 100 MG in DEXTROSE 5% 100 ML IV SCH ×2 (04:48→17:56)
[2022-01-19] MEDS: oxyCODONE/ACETAMINOPHEN 5mg/325mg TAB PO PRN ×4 (04:53→15:04)
--- NOTE | 2022-01-19 07:04 | Hospitalist Progress Note ---
Date of Service January 19, 2022 Assessment & Plan (1) Perirectal abscess: Plan: - CT pelvis - 3.1 cm perianal abscess at the 12:00 position with surrounding cellulitis as detailed above. - fever noted at home, pain in perrectal area in last 1-2 weeks - blood cultures obtained and will follow results - no growth to date - surgery contacted by ED, recommend IV Abx and pt was started on zosyn - s/p I&D by gen. surgery (01/16) - packing removed by surgery the next day after I&D, bloody drainage noted - then overnight pt febrile 38.6C - repeat blood cultx now, cont. zosyn, added doxy for now, further discussed w/ surgery - plan to see the pt today - Continue to closely monitor (2) DM type 2 (diabetes mellitus, type 2): Plan: A1c 6.3% in 02/2021 - hold home metformin - cont. to monitor blood glc level while inpt (3) Hyperlipidemia: Plan: - cont. home on statin (4) Hypertension: Plan: - hold home lisinopril for now, cont. metoprolol 50 bid Anxiety - cont. home Buspar DVT ppx: SCDs, pt ambulatory Admission and Anticipated Discharge Date Admission Date: January 16, 2022 Subjective Pt seen in follow up of perirectal abscess S/p I&D Packing removed by surgery the next day after I&D Pt then febrile overnight 38.6C. She reports that she had a BM and then she had fever, chills, sweats later. Pain is better controlled now. Patient is currently sitting up in chair, having lunch, sister at the bedside. Reports having chills again overnight. Otherwise denies any chest pain shortness of breath, abdominal pain, nausea vomiting Review of Systems Review of Systems: All systems reviewed & are unremarkable except as noted in Subjective Physical Exam Physical Exam: Constitutional:I WD/WN, vitals as a dana Eyes: PERRL, EOMI, conju nctivae normal, an icteric sclerae ENMT: external ear and n ose normal, oropha rynx normal Neck: supple Respiratory: normal respiratory effort, lungs eliazar ar to auscultation Cardiovascular:I RRR, no murmur, no edema Chest (Breasts): Chest: normal insp ection of chest Gastrointestinal ( Abdomen): normal bowel sound s, soft, nontender Musculoskeletal: extremities motor strength 5/5 Skin: no rashes, warm an d dry Neurologic: PERRL, EOMI,no fac e palsy, no dysart hria, moves extrem ities Psychiatric: A+Ox3, euthymic af fect Lymphatic: no lymphedema Results & Data Results & Data ([facility]) Vital Signs (Past 12 Hours) Vital Signs Temp Pulse Pulse Pulse Resp BP BP 01/19/22 03:33 37.1 C 88 16 108/67 01/18/22 22:20 87 01/18/22 23:50 36.8 C 91 H 20 123/76 01/18/22 19:23 36.8 C 99 H 20 117/70 Pulse Ox O2 Del Method 01/19/22 03:33 92 Room Air 01/18/22 22:20 01/18/22 23:50 98 Room Air 01/18/22 19:23 97 Room Air Laboratory Results 01/19/22 01/19/22 01/19/22 Range/Units 11:32 08:40 08:40 WBC 14.62 H (4.8-10.8) K/ul RBC 3.84 L (3.93-5.22) M/uL Hgb 11.0 L (12.0-16.0) g/dl Hct 33.1 L (34.1-44.9) % MCV 86.2 (80.0-100.0) fL MCH 28.6 (25.0-34.0) pg MCHC 33.2 (32.0-36.0) g/dL RDW Std Deviation 45.5 (36.4-46.3) fL RDW Coeff of Maryann 14.6 H (11.5-14.5) % Plt Count 394 (130-400) K/uL MPV 9.4 (9.4-12.3) fL Sodium 135 L (136-145) mmol/L Potassium 3.6 (3.5-5.1) mmol/L Chloride 99 (98-107) mmol/L Carbon Dioxide 27 (21-32) mmol/L Anion Gap 9 (3-11) BUN 10 (6-23) mg/dl Creatinine 0.62 (0.6-1.2) mg/dl Est Cr Clr Drug Dosing 79.1 ml/min Est GFR ( Amer) 113.6 ml/min Est GFR (Non-Af Amer) 98.0 ml/min BUN/Creatinine Ratio 16.1 (10-20) Glucose 156 H (70-99(Fasting)) mg/dl POC Glucose 131 H (70-99) mg/dl Calcium 9.2 (8.5-10.1) mg/dl Phosphorus 4.0 (2.5-4.9) mg/dl Magnesium 2.0 (1.7-2.4) mg/dl 01/19/22 01/18/22 01/18/22 Range/Units 07:14 20:24 16:56 WBC (4.8-10.8) K/ul RBC (3.93-5.22) M/uL Hgb (12.0-16.0) g/dl Hct (34.1-44.9) % MCV (80.0-100.0) fL MCH (25.0-34.0) pg MCHC (32.0-36.0) g/dL RDW Std Deviation (36.4-46.3) fL RDW Coeff of Maryann (11.5-14.5) % Plt Count (130-400) K/uL MPV (9.4-12.3) fL Sodium (136-145) mmol/L Potassium (3.5-5.1) mmol/L Chloride (98-107) mmol/L Carbon Dioxide (21-32) mmol/L Anion Gap (3-11) BUN (6-23) mg/dl Creatinine (0.6-1.2) mg/dl Est Cr Clr Drug Dosing ml/min Est GFR ( Amer) ml/min Est GFR (Non-Af Amer) ml/min BUN/Creatinine Ratio (10-20) Glucose (70-99(Fasting)) mg/dl POC Glucose 138 H 213 H 134 H (70-99) mg/dl Calcium (8.5-10.1) mg/dl Phosphorus (2.5-4.9) mg/dl Magnesium (1.7-2.4) mg/dl 01/18/22 Range/Units 09:29 WBC (4.8-10.8) K/ul RBC (3.93-5.22) M/uL Hgb (12.0-16.0) g/dl Hct (34.1-44.9) % MCV (80.0-100.0) fL MCH (25.0-34.0) pg MCHC (32.0-36.0) g/dL RDW Std Deviation (36.4-46.3) fL RDW Coeff of Maryann (11.5-14.5) % Plt Count (130-400) K/uL MPV (9.4-12.3) fL Sodium 138 (136-145) mmol/L Potassium 4.0 D (3.5-5.1) mmol/L Chloride 102 (98-107) mmol/L Carbon Dioxide 27 (21-32) mmol/L Anion Gap 9 (3-11) BUN 9 (6-23) mg/dl Creatinine 0.59 L (0.6-1.2) mg/dl Est Cr Clr Drug Dosing 83.6 ml/min Est GFR ( Amer) 115.5 ml/min Est GFR (Non-Af Amer) 99.6 ml/min BUN/Creatinine Ratio 15.3 (10-20) Glucose 170 H (70-99(Fasting)) mg/dl POC Glucose (70-99) mg/dl Calcium 9.7 (8.5-10.1) mg/dl Phosphorus (2.5-4.9) mg/dl Magnesium (1.7-2.4) mg/dl Medications Administered Current Inpatient Medications Acetaminophen (Acetaminophen 325 Mg Tab) 650 mg PO Q4H PRN PRN Reason: Pain or Fever Stop: 02/14/22 15:19 Last Admin: 01/18/22 03:21 Dose: 650 mg Buspirone HCl (Buspirone 5 Mg Tab) 10 mg PO QAM [facility] Stop: 02/15/22 08:59 Last Admin: 01/18/22 07:35 Dose: 10 mg Buspirone HCl (Buspirone 5 Mg Tab) 20 mg PO HS [facility] Stop: 02/14/22 20:59 Last Admin: 01/18/22 21:08 Dose: 20 mg Calcium Carbonate (Calcium Carbonate 500 Mg Chewable Tab) 500 mg PO Q6H PRN PRN Reason: Indigestion Stop: 02/14/22 17:03 Docusate Sodium (Docusate Sodium 100 Mg Cap) 100 mg PO BID [facility] Stop: 02/16/22 11:14 Last Admin: 01/18/22 21:09 Dose: 100 mg Piperacillin Sod/Tazobactam (Sod 3.375 gm/ Dextrose) 115 mls @ 28.75 mls/hr IV Q8H [facility]; Protocol Stop: 01/22/22 19:29 Last Admin: 01/19/22 02:40 Dose: 28.8 mls/hr Doxycycline Hyclate 100 mg/ (Dextrose) 110 mls @ 50 mls/hr IV Q12H [facility] Stop: 01/20/22 16:59 Last Admin: 01/19/22 04:48 Dose: 50 mls/hr Insulin Aspart (Insulin Aspart Per Unit) 0 units SC ACHS [facility] Stop: 02/15/22 16:29 Last Admin: 01/18/22 21:09 Dose: 3 units Ketorolac Tromethamine (Ketorolac Tromethamine 15 Mg/Ml Vial) 15 mg IV Q6H PRN PRN Reason: moderate pain Stop: 01/22/22 16:47 Last Admin: 01/18/22 18:06 Dose: 15 mg Metoprolol Succinate (Metoprolol Succ 50mg Ext Rel Tab) 50 mg PO BID [facility] Stop: 02/14/22 20:59 Last Admin: 01/18/22 21:09 Dose: 50 mg Miscellaneous (Lifitegrast [Xiidra] 5 % ~ Order Awaiting Action) 1 each N/A QS [facility] Stop: 02/15/22 00:00 Last Admin: 01/19/22 01:20 Dose: Not Given Morphine Sulfate (Morphine Sulfate 4 Mg/Ml 1 Ml Carp\Vial) 3 mg IV Q3H PRN PRN Reason: Pain Stop: 01/29/22 16:26 Last Admin: 01/17/22 06:20 Dose: 3 mg Morphine Sulfate (Morphine Sulfate 2 Mg/Ml Carp) 2 mg IV Q4 PRN PRN Reason: Moderate Pain Stop: 01/30/22 12:05 Morphine Sulfate (Morphine Sulfate 4 Mg/Ml 1 Ml Carp\Vial) 4 mg IV Q4 PRN PRN Reason: Severe Pain Stop: 01/30/22 12:05 Last Admin: 01/19/22 02:30 Dose: 4 mg Oxycodone/Acetaminophen (Oxycodone/Acetaminophen 5mg/325mg Tab) 1 tab PO Q4H PRN PRN Reason: Pain Stop: 01/30/22 12:05 Last Admin: 01/18/22 12:43 Dose: 1 tab Oxycodone/Acetaminophen (Oxycodone/Acetaminophen 5mg/325mg Tab) 2 tab PO Q4H PRN PRN Reason: Pain Stop: 01/30/22 12:05 Last Admin: 01/19/22 04:53 Dose: 2 tab Simvastatin (Simvastatin 20 Mg Tab) 20 mg PO HS [place] Stop: 02/14/22 20:59 Last Admin: 01/18/22 21:09 Dose: 20 mg
[2022-01-19] MEDS: METOPROLOL SUCC 50MG EXT REL TAB PO SCH ×2 (07:08→20:42)
[2022-01-19] MEDS: DOCUSATE SODIUM 100 MG CAP PO SCH ×2 (07:08→20:42)
[2022-01-19] MEDS: busPIRone 5 MG TAB PO SCH ×2 (07:08→20:42)
[2022-01-19] MEDS: INSULIN ASPART PER UNIT SC SCH ×4 (07:45→20:41)
[2022-01-19 09:33] LABS: Hematocrit (blood only) 33.1 % (34.1-44.9); Mean Corpuscular Hemoglobin 28.6 pg (25.0-34.0); Mean Corpuscular Hgb Conc 33.2 g/dL (32.0-36.0); Mean Corpuscular Volume 86.2 fL (80.0-100.0); Mean Platelet Volume 9.4 fL (9.4-12.3); Platelet Count 394 K/uL (130-400); RDW Coefficient of Variation 14.6 % (11.5-14.5); RDW Standard Deviation 45.5 fL (36.4-46.3); Red Blood Count 3.84 M/uL (3.93-5.22); White Blood Count 14.62 K/ul (4.8-10.8)
[2022-01-19 10:01] LABS: BUN Creatinine Ratio 16.1 (10-20); Calcium 9.2 mg/dl (8.5-10.1); Creatinine Clr Calc Pharmacy 79.1 ml/min; Est GFR (African American) 113.6 ml/min; Potassium 3.6 mmol/L (3.5-5.1)
--- NOTE | 2022-01-19 16:47 | Surgery Progress Note ---
Date of Service January 19, 2022 Assessment & Plan (1) Perianal abscess: Plan: POD # 3 s/p Incision and drainage of perirectal abscess -febrile to 38.6 last pm; leukocytosis of 14k Plan: continue pain management as needed Sitz bath or shower after BM monitor O/N possible home tomorrow as per medicine team f/u with Dr. Watkins next week Admission and Anticipated Discharge Date Admission Date: January 16, 2022 Subjective still with pain; fever last pm to 38.6; WBC 14 today. Results & Data ([facility]) Vital Signs (Past 12 Hours) Vital Signs Temp Pulse Resp BP Pulse Ox O2 Del Method 01/19/22 15:12 36.6 C 108 H 20 126/77 98 Room Air 01/19/22 11:40 36.7 C 90 20 111/62 97 Room Air 01/19/22 07:19 36.6 C 80 20 118/77 97 Room Air Laboratory Results 01/19/22 01/19/22 01/19/22 Range/Units 11:32 08:40 08:40 WBC 14.62 H (4.8-10.8) K/ul RBC 3.84 L (3.93-5.22) M/uL Hgb 11.0 L (12.0-16.0) g/dl Hct 33.1 L (34.1-44.9) % MCV 86.2 (80.0-100.0) fL MCH 28.6 (25.0-34.0) pg MCHC 33.2 (32.0-36.0) g/dL RDW Std Deviation 45.5 (36.4-46.3) fL RDW Coeff of Maryann 14.6 H (11.5-14.5) % Plt Count 394 (130-400) K/uL MPV 9.4 (9.4-12.3) fL Sodium 135 L (136-145) mmol/L Potassium 3.6 (3.5-5.1) mmol/L Chloride 99 (98-107) mmol/L Carbon Dioxide 27 (21-32) mmol/L Anion Gap 9 (3-11) BUN 10 (6-23) mg/dl Creatinine 0.62 (0.6-1.2) mg/dl Est Cr Clr Drug Dosing 79.1 ml/min Est GFR ( Amer) 113.6 ml/min Est GFR (Non-Af Amer) 98.0 ml/min BUN/Creatinine Ratio 16.1 (10-20) Glucose 156 H (70-99(Fasting)) mg/dl POC Glucose 131 H (70-99) mg/dl Calcium 9.2 (8.5-10.1) mg/dl Phosphorus 4.0 (2.5-4.9) mg/dl Magnesium 2.0 (1.7-2.4) mg/dl 01/19/22 01/18/22 01/18/22 Range/Units 07:14 20:24 16:56 WBC (4.8-10.8) K/ul RBC (3.93-5.22) M/uL Hgb (12.0-16.0) g/dl Hct (34.1-44.9) % MCV (80.0-100.0) fL MCH (25.0-34.0) pg MCHC (32.0-36.0) g/dL RDW Std Deviation (36.4-46.3) fL RDW Coeff of Maryann (11.5-14.5) % Plt Count (130-400) K/uL MPV (9.4-12.3) fL Sodium (136-145) mmol/L Potassium (3.5-5.1) mmol/L Chloride (98-107) mmol/L Carbon Dioxide (21-32) mmol/L Anion Gap (3-11) BUN (6-23) mg/dl Creatinine (0.6-1.2) mg/dl Est Cr Clr Drug Dosing ml/min Est GFR ( Amer) ml/min Est GFR (Non-Af Amer) ml/min BUN/Creatinine Ratio (10-20) Glucose (70-99(Fasting)) mg/dl POC Glucose 138 H 213 H 134 H (70-99) mg/dl Calcium (8.5-10.1) mg/dl Phosphorus (2.5-4.9) mg/dl Magnesium (1.7-2.4) mg/dl
[2022-01-19] MEDS: SIMVASTATIN 20 MG TAB PO SCH (20:42)
[2022-01-19] MEDS: ACETAMINOPHEN 325 MG TAB PO PRN (23:45)
[2022-01-20] MEDS: PIPERACILLIN/TAZOBACTAM 3.375 GM in DEXTROSE 5% 100 ML IV SCH ×3 (03:08→19:38)
[2022-01-20] MEDS: DOXYCYCLINE HYCLATE 100 MG in DEXTROSE 5% 100 ML IV SCH (05:23)
[2022-01-20] MEDS: INSULIN ASPART PER UNIT SC SCH ×4 (08:10→20:54)
[2022-01-20 08:29] LABS: Hematocrit (blood only) 30.9 % (34.1-44.9); Hemoglobin 10.6 g/dl (12.0-16.0); Mean Corpuscular Hgb Conc 34.3 g/dL (32.0-36.0); Mean Corpuscular Volume 84.7 fL (80.0-100.0); Platelet Count 376 K/uL (130-400); RDW Coefficient of Variation 14.5 % (11.5-14.5); RDW Standard Deviation 44.8 fL (36.4-46.3); Red Blood Count 3.65 M/uL (3.93-5.22); White Blood Count 14.61 K/ul (4.8-10.8)
[2022-01-20] MEDS: busPIRone 5 MG TAB PO SCH ×2 (08:41→20:53)
[2022-01-20] MEDS: METOPROLOL SUCC 50MG EXT REL TAB PO SCH ×2 (08:41→20:54)
[2022-01-20] MEDS: DOCUSATE SODIUM 100 MG CAP PO SCH ×2 (08:41→20:53)
[2022-01-20] MEDS: KETOROLAC TROMETHAMINE 15 MG/ML VIAL IV PRN (08:42)
[2022-01-20 08:51] LABS: BUN Creatinine Ratio 14.8 (10-20); Calcium 8.8 mg/dl (8.5-10.1); Creatinine Clr Calc Pharmacy 90.8 ml/min; Est GFR (African American) 118.9 ml/min; Est GFR (Non-African American) 102.6 ml/min; Phosphorus 3.1 mg/dl (2.5-4.9); Potassium 3.7 mmol/L (3.5-5.1)
--- NOTE | 2022-01-20 08:52 | Surgery Progress Note ---
Date of Service January 20, 2022 Assessment & Plan (1) Perianal abscess: Plan: POD # 4 s/p Incision and drainage of perirectal abscess -febrile to 38.6 last pm; leukocytosis of 14k Plan: continue pain management as needed Sitz bath or shower after BM Continues with fever and slightly elevated white count - most likely from significant inflammatory response secondary to incision and drainage of the infection. We will continue to monitor Admission and Anticipated Discharge Date Admission Date: January 16, 2022 Subjective still with pain; fever last pm to 38.6; WBC 14 today. Results & Data ([facility]) Vital Signs (Past 12 Hours) Vital Signs Temp Pulse Pulse Pulse Resp BP BP 01/20/22 07:34 37.4 C 90 20 111/71 01/20/22 07:00 106 H 01/20/22 03:03 36.8 C 105 H 18 122/53 L 01/19/22 23:50 104 H 01/19/22 23:16 38.6 C H 116 H 18 120/68 Pulse Ox O2 Del Method 01/20/22 07:34 96 Room Air 01/20/22 07:00 01/20/22 03:03 94 Room Air 01/19/22 23:50 01/19/22 23:16 93 Room Air Laboratory Results 01/20/22 01/20/22 01/20/22 Range/Units 08:10 08:10 07:31 WBC 14.61 H (4.8-10.8) K/ul RBC 3.65 L (3.93-5.22) M/uL Hgb 10.6 L (12.0-16.0) g/dl Hct 30.9 L (34.1-44.9) % MCV 84.7 (80.0-100.0) fL MCH 29.0 (25.0-34.0) pg MCHC 34.3 (32.0-36.0) g/dL RDW Std Deviation 44.8 (36.4-46.3) fL RDW Coeff of Maryann 14.5 (11.5-14.5) % Plt Count 376 (130-400) K/uL MPV 9.0 L (9.4-12.3) fL Sodium Pending (136-145) mmol/L Potassium Pending (3.5-5.1) mmol/L Chloride Pending (98-107) mmol/L Carbon Dioxide Pending (21-32) mmol/L Anion Gap Pending (3-11) BUN Pending (6-23) mg/dl Creatinine Pending (0.6-1.2) mg/dl Est Cr Clr Drug Dosing Pending ml/min Est GFR ( Amer) Pending ml/min Est GFR (Non-Af Amer) Pending ml/min BUN/Creatinine Ratio Pending (10-20) Glucose Pending (70-99(Fasting)) mg/dl POC Glucose 158 H (70-99) mg/dl Calcium Pending (8.5-10.1) mg/dl Phosphorus Pending (2.5-4.9) mg/dl Magnesium Pending (1.7-2.4) mg/dl 01/19/22 01/19/22 01/19/22 Range/Units 20:32 16:50 11:32 WBC (4.8-10.8) K/ul RBC (3.93-5.22) M/uL Hgb (12.0-16.0) g/dl Hct (34.1-44.9) % MCV (80.0-100.0) fL MCH (25.0-34.0) pg MCHC (32.0-36.0) g/dL RDW Std Deviation (36.4-46.3) fL RDW Coeff of Maryann (11.5-14.5) % Plt Count (130-400) K/uL MPV (9.4-12.3) fL Sodium (136-145) mmol/L Potassium (3.5-5.1) mmol/L Chloride (98-107) mmol/L Carbon Dioxide (21-32) mmol/L Anion Gap (3-11) BUN (6-23) mg/dl Creatinine (0.6-1.2) mg/dl Est Cr Clr Drug Dosing ml/min Est GFR ( Amer) ml/min Est GFR (Non-Af Amer) ml/min BUN/Creatinine Ratio (10-20) Glucose (70-99(Fasting)) mg/dl POC Glucose 220 H 143 H 131 H (70-99) mg/dl Calcium (8.5-10.1) mg/dl Phosphorus (2.5-4.9) mg/dl Magnesium (1.7-2.4) mg/dl 01/19/22 01/19/22 Range/Units 08:40 08:40 WBC 14.62 H (4.8-10.8) K/ul RBC 3.84 L (3.93-5.22) M/uL Hgb 11.0 L (12.0-16.0) g/dl Hct 33.1 L (34.1-44.9) % MCV 86.2 (80.0-100.0) fL MCH 28.6 (25.0-34.0) pg MCHC 33.2 (32.0-36.0) g/dL RDW Std Deviation 45.5 (36.4-46.3) fL RDW Coeff of Maryann 14.6 H (11.5-14.5) % Plt Count 394 (130-400) K/uL MPV 9.4 (9.4-12.3) fL Sodium 135 L (136-145) mmol/L Potassium 3.6 (3.5-5.1) mmol/L Chloride 99 (98-107) mmol/L Carbon Dioxide 27 (21-32) mmol/L Anion Gap 9 (3-11) BUN 10 (6-23) mg/dl Creatinine 0.62 (0.6-1.2) mg/dl Est Cr Clr Drug Dosing 79.1 ml/min Est GFR ( Amer) 113.6 ml/min Est GFR (Non-Af Amer) 98.0 ml/min BUN/Creatinine Ratio 16.1 (10-20) Glucose 156 H (70-99(Fasting)) mg/dl POC Glucose (70-99) mg/dl Calcium 9.2 (8.5-10.1) mg/dl Phosphorus 4.0 (2.5-4.9) mg/dl Magnesium 2.0 (1.7-2.4) mg/dl
--- NOTE | 2022-01-20 12:05 | Hospitalist Progress Note ---
Date of Service January 20, 2022 Assessment & Plan (1) Perirectal abscess: Plan: - CT pelvis - 3.1 cm perianal abscess at the 12:00 position with surrounding cellulitis as detailed above. - fever noted at home, pain in perrectal area in last 1-2 weeks - blood cultures obtained and will follow results - no growth to date - surgery contacted by ED, recommend IV Abx and pt was started on zosyn - s/p I&D by gen. surgery (01/16) - packing removed by surgery the next day after I&D, bloody drainage noted - then overnight pt febrile 38.6C - repeated blood cultx - negat. thus far. - cont. zosyn, added doxy - further discussed w/ surgery - 01/20 - pt febrile again overnight. Examined the pt w/ surgeon at the bedside. Plan to cont. IV Abx. If cont. to be febrile, have elev. WBC etc. likely will re-image the area (repeat CT pelvis) - Continue to closely monitor (2) DM type 2 (diabetes mellitus, type 2): Plan: A1c 6.3% in 02/2021 - hold home metformin - cont. to monitor blood glc level while inpt (3) Hyperlipidemia: Plan: - cont. home on statin (4) Hypertension: Plan: - hold home lisinopril for now, cont. metoprolol 50 bid Anxiety - cont. home Buspar DVT ppx: SCDs, pt ambulatory Admission and Anticipated Discharge Date Admission Date: January 16, 2022 Subjective Pt seen in follow up of perirectal abscess S/p I&D Packing removed by surgery the next day after I&D Pt febrile last night again 38.6C. Reports minimal drainage after packing removed Continues to have some pain, but better controlled Pt seen and examined with surgeon at the bedside. Denies any chest pain shortness of breath, abdominal pain, nausea vomiting Review of Systems Review of Systems: All systems reviewed & are unremarkable except as noted in Subjective Physical Exam Physical Exam: Constitutional:I WD/WN, vitals as a dana Eyes: PERRL, EOMI, conju nctivae normal, an icteric sclerae ENMT: external ear and n ose normal, oropha rynx normal Neck: supple Respiratory: normal respiratory effort, lungs eliazar ar to auscultation Cardiovascular:I RRR, no murmur, no edema Chest (Breasts): Chest: normal insp ection of chest Gastrointestinal ( Abdomen): normal bowel sound s, soft, nontender Musculoskeletal: extremities motor strength 5/5 Skin: no rashes, warm an d dry Neurologic: PERRL, EOMI,no fac e palsy, no dysart hria, moves extrem ities Psychiatric: A+Ox3, euthymic af fect Lymphatic: no lymphedema Results & Data Results & Data ([facility]) Vital Signs (Past 12 Hours) Vital Signs Temp Pulse Pulse Pulse Resp BP BP 01/20/22 11:32 36.6 C 85 18 121/77 01/20/22 07:34 37.4 C 90 20 111/71 01/20/22 07:00 106 H 01/20/22 03:03 36.8 C 105 H 18 122/53 L Pulse Ox O2 Del Method 01/20/22 11:32 98 Room Air 01/20/22 07:34 96 Room Air 01/20/22 07:00 01/20/22 03:03 94 Room Air Laboratory Results 01/20/22 01/20/22 01/20/22 Range/Units 08:10 08:10 07:31 WBC 14.61 H (4.8-10.8) K/ul RBC 3.65 L (3.93-5.22) M/uL Hgb 10.6 L (12.0-16.0) g/dl Hct 30.9 L (34.1-44.9) % MCV 84.7 (80.0-100.0) fL MCH 29.0 (25.0-34.0) pg MCHC 34.3 (32.0-36.0) g/dL RDW Std Deviation 44.8 (36.4-46.3) fL RDW Coeff of Maryann 14.5 (11.5-14.5) % Plt Count 376 (130-400) K/uL MPV 9.0 L (9.4-12.3) fL Sodium 136 (136-145) mmol/L Potassium 3.7 (3.5-5.1) mmol/L Chloride 105 (98-107) mmol/L Carbon Dioxide 24 (21-32) mmol/L Anion Gap 7 (3-11) BUN 8 (6-23) mg/dl Creatinine 0.54 L (0.6-1.2) mg/dl Est Cr Clr Drug Dosing 90.8 ml/min Est GFR ( Amer) 118.9 ml/min Est GFR (Non-Af Amer) 102.6 ml/min BUN/Creatinine Ratio 14.8 (10-20) Glucose 154 H (70-99(Fasting)) mg/dl POC Glucose 158 H (70-99) mg/dl Calcium 8.8 (8.5-10.1) mg/dl Phosphorus 3.1 (2.5-4.9) mg/dl Magnesium 2.0 (1.7-2.4) mg/dl 01/19/22 01/19/22 Range/Units 20:32 16:50 WBC (4.8-10.8) K/ul RBC (3.93-5.22) M/uL Hgb (12.0-16.0) g/dl Hct (34.1-44.9) % MCV (80.0-100.0) fL MCH (25.0-34.0) pg MCHC (32.0-36.0) g/dL RDW Std Deviation (36.4-46.3) fL RDW Coeff of Maryann (11.5-14.5) % Plt Count (130-400) K/uL MPV (9.4-12.3) fL Sodium (136-145) mmol/L Potassium (3.5-5.1) mmol/L Chloride (98-107) mmol/L Carbon Dioxide (21-32) mmol/L Anion Gap (3-11) BUN (6-23) mg/dl Creatinine (0.6-1.2) mg/dl Est Cr Clr Drug Dosing ml/min Est GFR ( Amer) ml/min Est GFR (Non-Af Amer) ml/min BUN/Creatinine Ratio (10-20) Glucose (70-99(Fasting)) mg/dl POC Glucose 220 H 143 H (70-99) mg/dl Calcium (8.5-10.1) mg/dl Phosphorus (2.5-4.9) mg/dl Magnesium (1.7-2.4) mg/dl Medications Administered Current Inpatient Medications Acetaminophen (Acetaminophen 325 Mg Tab) 650 mg PO Q4H PRN PRN Reason: Pain or Fever Stop: 02/14/22 15:19 Last Admin: 01/19/22 23:45 Dose: 650 mg Buspirone HCl (Buspirone 5 Mg Tab) 10 mg PO QAM [facility] Stop: 02/15/22 08:59 Last Admin: 01/20/22 08:41 Dose: 10 mg Buspirone HCl (Buspirone 5 Mg Tab) 20 mg PO HS [facility] Stop: 02/14/22 20:59 Last Admin: 01/19/22 20:42 Dose: 20 mg Calcium Carbonate (Calcium Carbonate 500 Mg Chewable Tab) 500 mg PO Q6H PRN PRN Reason: Indigestion Stop: 02/14/22 17:03 Docusate Sodium (Docusate Sodium 100 Mg Cap) 100 mg PO BID [facility] Stop: 02/16/22 11:14 Last Admin: 01/20/22 08:41 Dose: 100 mg Piperacillin Sod/Tazobactam (Sod 3.375 gm/ Dextrose) 115 mls @ 28.75 mls/hr IV Q8H [facility]; Protocol Stop: 01/22/22 19:29 Last Admin: 01/20/22 11:45 Dose: 28.8 mls/hr Doxycycline Hyclate 100 mg/ (Dextrose) 110 mls @ 50 mls/hr IV Q12H [facility] Stop: 01/20/22 16:59 Last Infusion: 01/20/22 07:35 Dose: Infused Insulin Aspart (Insulin Aspart Per Unit) 0 units SC ACHS [facility] Stop: 02/15/22 16:29 Last Admin: 01/20/22 12:03 Dose: Not Given Ketorolac Tromethamine (Ketorolac Tromethamine 15 Mg/Ml Vial) 15 mg IV Q6H PRN PRN Reason: moderate pain Stop: 01/22/22 16:47 Last Admin: 01/20/22 08:42 Dose: 15 mg Metoprolol Succinate (Metoprolol Succ 50mg Ext Rel Tab) 50 mg PO BID [facility] Stop: 02/14/22 20:59 Last Admin: 01/20/22 08:41 Dose: 50 mg Miscellaneous (Lifitegrast [Xiidra] 5 % ~ Order Awaiting Action) 1 each N/A QS [facility] Stop: 02/15/22 00:00 Last Admin: 01/20/22 11:46 Dose: Not Given Morphine Sulfate (Morphine Sulfate 4 Mg/Ml 1 Ml Carp\Vial) 3 mg IV Q3H PRN PRN Reason: Pain Stop: 01/29/22 16:26 Last Admin: 01/17/22 06:20 Dose: 3 mg Morphine Sulfate (Morphine Sulfate 2 Mg/Ml Carp) 2 mg IV Q4 PRN PRN Reason: Moderate Pain Stop: 01/30/22 12:05 Morphine Sulfate (Morphine Sulfate 4 Mg/Ml 1 Ml CarpVial) 4 mg IV Q4 PRN PRN Reason: Severe Pain Stop: 01/30/22 12:05 Last Admin: 01/19/22 02:30 Dose: 4 mg Oxycodone/Acetaminophen (Oxycodone/Acetaminophen 5mg/325mg Tab) 1 tab PO Q4H PRN PRN Reason: Pain Stop: 01/30/22 12:05 Last Admin: 01/18/22 12:43 Dose: 1 tab Oxycodone/Acetaminophen (Oxycodone/Acetaminophen 5mg/325mg Tab) 2 tab PO Q4H PRN PRN Reason: Pain Stop: 01/30/22 12:05 Last Admin: 01/19/22 15:04 Dose: 2 tab Simvastatin (Simvastatin 20 Mg Tab) 20 mg PO HS [place] Stop: 02/14/22 20:59 Last Admin: 01/19/22 20:42 Dose: 20 mg
[2022-01-20] MEDS: oxyCODONE/ACETAMINOPHEN 5mg/325mg TAB PO PRN (18:19)
[2022-01-20] MEDS: SIMVASTATIN 20 MG TAB PO SCH (20:54)
[2022-01-21] MEDS: oxyCODONE/ACETAMINOPHEN 5mg/325mg TAB PO PRN ×4 (01:08→21:49)
[2022-01-21] MEDS ORDERED: DOXYCYCLINE HYCLATE 100 MG in DEXTROSE 5% 100 ML IV SCH (02:00)
[2022-01-21] MEDS: PIPERACILLIN/TAZOBACTAM 3.375 GM in DEXTROSE 5% 100 ML IV SCH ×2 (02:39→11:15)
[2022-01-21 07:02] LABS: Hematocrit (blood only) 29.9 % (34.1-44.9); Hemoglobin 9.9 g/dl (12.0-16.0); Mean Corpuscular Hemoglobin 28.8 pg (25.0-34.0); Mean Corpuscular Hgb Conc 33.1 g/dL (32.0-36.0); Mean Corpuscular Volume 86.9 fL (80.0-100.0); Mean Platelet Volume 9.1 fL (9.4-12.3); Platelet Count 386 K/uL (130-400); RDW Coefficient of Variation 14.6 % (11.5-14.5); RDW Standard Deviation 46.4 fL (36.4-46.3); Red Blood Count 3.44 M/uL (3.93-5.22); White Blood Count 15.19 K/ul (4.8-10.8)
[2022-01-21 07:26] LABS: BUN Creatinine Ratio 20.6 (10-20); Calcium 8.6 mg/dl (8.5-10.1); Creatinine Clr Calc Pharmacy 77.8 ml/min; Est GFR (Non-African American) 97.5 ml/min; Potassium 3.7 mmol/L (3.5-5.1)
[2022-01-21] MEDS: INSULIN ASPART PER UNIT SC SCH ×4 (08:37→21:50)
[2022-01-21] MEDS: DOCUSATE SODIUM 100 MG CAP PO SCH ×2 (08:38→21:42)
[2022-01-21] MEDS: METOPROLOL SUCC 50MG EXT REL TAB PO SCH ×2 (08:38→21:41)
[2022-01-21] MEDS: busPIRone 5 MG TAB PO SCH ×2 (08:38→21:42)
--- NOTE | 2022-01-21 09:30 | Surgery Progress Note ---
Date of Service January 21, 2022 Assessment & Plan (1) Perianal abscess: Plan: POD # 5 s/p Incision and drainage of perirectal abscess - no definitive fever last night, however white count today is 15 Plan: given the elevated white blood cell count, she may require CT scan of her pelvis for re-evaluation of the area. I will discuss with Dr. Watkins who was coming on for the weekend concerning further management. We will continue to follow. Admission and Anticipated Discharge Date Admission Date: January 16, 2022 Subjective still complains of fairly significant pain in the rectal area. No documented fever overnight, although she states she felt chilled and took her own temperature which was 100.4. The rectal area was examined yesterday in the presence of Dr. Andrea, there is a small amount of erythema on the right buttock opposite the incision and drainage site. This was an area that was connected to the I&D site during the surgery. Minimal drainage at the time I have exam. Physical Exam Physical Exam: see above Results & Data ([facility]) Vital Signs (Past 12 Hours) Vital Signs Temp Pulse Resp BP BP Pulse Ox O2 Del Method 01/21/22 07:42 36.7 C 83 20 124/83 97 Room Air 01/20/22 23:00 36.6 C 91 H 18 120/74 98 Room Air Laboratory Results 01/21/22 01/21/22 01/21/22 Range/Units 07:39 06:25 06:25 WBC 15.19 H (4.8-10.8) K/ul RBC 3.44 L (3.93-5.22) M/uL Hgb 9.9 L (12.0-16.0) g/dl Hct 29.9 L (34.1-44.9) % MCV 86.9 (80.0-100.0) fL MCH 28.8 (25.0-34.0) pg MCHC 33.1 (32.0-36.0) g/dL RDW Std Deviation 46.4 H (36.4-46.3) fL RDW Coeff of Maryann 14.6 H (11.5-14.5) % Plt Count 386 (130-400) K/uL MPV 9.1 L (9.4-12.3) fL Sodium 133 L (136-145) mmol/L Potassium 3.7 (3.5-5.1) mmol/L Chloride 102 (98-107) mmol/L Carbon Dioxide 25 (21-32) mmol/L Anion Gap 6 (3-11) BUN 13 (6-23) mg/dl Creatinine 0.63 (0.6-1.2) mg/dl Est Cr Clr Drug Dosing 77.8 ml/min Est GFR ( Amer) 113.0 ml/min Est GFR (Non-Af Amer) 97.5 ml/min BUN/Creatinine Ratio 20.6 H (10-20) Glucose 154 H (70-99(Fasting)) mg/dl POC Glucose 133 H (70-99) mg/dl Calcium 8.6 (8.5-10.1) mg/dl 01/20/22 01/20/22 01/20/22 Range/Units 20:49 16:25 11:23 WBC (4.8-10.8) K/ul RBC (3.93-5.22) M/uL Hgb (12.0-16.0) g/dl Hct (34.1-44.9) % MCV (80.0-100.0) fL MCH (25.0-34.0) pg MCHC (32.0-36.0) g/dL RDW Std Deviation (36.4-46.3) fL RDW Coeff of Maryann (11.5-14.5) % Plt Count (130-400) K/uL MPV (9.4-12.3) fL Sodium (136-145) mmol/L Potassium (3.5-5.1) mmol/L Chloride (98-107) mmol/L Carbon Dioxide (21-32) mmol/L Anion Gap (3-11) BUN (6-23) mg/dl Creatinine (0.6-1.2) mg/dl Est Cr Clr Drug Dosing ml/min Est GFR ( Amer) ml/min Est GFR (Non-Af Amer) ml/min BUN/Creatinine Ratio (10-20) Glucose (70-99(Fasting)) mg/dl POC Glucose 201 H 125 H 147 H (70-99) mg/dl Calcium (8.5-10.1) mg/dl
[2022-01-21] MEDS ORDERED: OPTIRAY 350 100ml IV ONE (10:32)
--- NOTE | 2022-01-21 10:58 | CT Scan Report ---
CT SCAN OF THE PELVIS WITH IV CONTRAST CLINICAL HISTORY: Follow up perianal abscess status post drainage. COMPARISON STUDY: Pelvic CT scans dated 01/15/2022 and 02/26/2018. TECHNIQUE: Following the IV administration of 94 cc of Optiray 350, CT scan of the pelvis is performe d from the pelvic inlet to the proximal femora. Images reviewed in the axial, sagittal, and coronal p lanes. IV contrast was administered without complication. A dose lowering technique was utilized adhe ring to the principles of ALARA. CT DOSE: 362.31 mGy.cm FINDINGS: The bladder is normal as visualized. The uterus is surgically absent. No adnexal lesion is seen. Ther e is no pelvic sidewall or inguinal lymphadenopathy. The imaged loops of small bowel and colon show n o evidence of obstruction. There is mild diverticulosis of the imaged colon without CT evidence of ac luis diverticulitis. A normal appendix is seen in the right lower quadrant. No intraperitoneal free ai r or free fluid is seen in the pelvis. There is evidence of previous ventral hernia repair. Again see n is significant inflammation around the perianal soft tissues, greatest posteriorly. There is an irr egular thick-walled peripherally enhancing multiloculated perianal fluid collection again seen manager film iorly at the 5:00 to 7:00 position. This has increased in size from previous, measuring 4.4 x 3.9 x 3 .3 cm in aggregate dimension as seen on axial image #219. This is located just below the levator musc ulature. No fistulous tract is clearly seen. No perineal soft tissue gas is noted. The skeletal struc tures appear intact. No lytic or blastic lesion is seen. Postsurgical change in noted in the lumbar s pine. The regional musculature is normal and symmetric. IMPRESSION: There is an enlarging perianal abscess with surrounding cellulitis as detailed above. ACT 112: Negative or not required by law. Electronically signed by: David Cote M.D. 01/21/2022 10:57 AM
[2022-01-21] MEDS: ADVANCED PROBIOTIC 1250 MG CAPSULE PO SCH (11:15)
[2022-01-21] MEDS ORDERED: DAPTOMYCIN IV SCH (11:30)
[2022-01-21] MEDS ORDERED: DAPTOmycin 275 MG in SYRINGE 0 ML IV SCH (11:45)
[2022-01-21] MEDS: SODIUM CHLORIDE 0.9% 1000ML 1,000 ML IV SCH (12:12)
[2022-01-21] MEDS ORDERED: VANCOMYCIN CONSULT ACTIVE PRN (16:57)
--- NOTE | 2022-01-21 17:04 | Hospitalist Progress Note ---
Date of Service January 21, 2022 Assessment & Plan (1) Perirectal abscess: Plan: Per Dr. Andrea's notes with addendum: - CT pelvis - 3.1 cm perianal abscess at the 12:00 position with surrounding cellulitis as detailed above. - fever noted at home, pain in perrectal area in last 1-2 weeks - blood cultures obtained and will follow results - no growth to date - surgery contacted by ED, recommend IV Abx and pt was started on zosyn - s/p I&D by gen. surgery (01/16) - packing removed by surgery the next day after I&D, bloody drainage noted - then overnight pt febrile 38.6C - repeated blood cultx - negat. thus far. - cont. zosyn, added doxy - further discussed w/ surgery - 01/20 - pt febrile again overnight. Examined the pt w/ surgeon at the bedside. Plan to cont. IV Abx. If cont. to be febrile, have elev. WBC etc. likely will re-image the area (repeat CT pelvis) - Continue to closely monitor 01/21 CT pelvis: There is an enlarging perianal abscess with surrounding cellulitis as detailed above. ID consulted Change antibiotics to: Vancomycin IV daily to maintain trough 15-20 Ceftriaxone 2 g IV daily Flagyl 500 mg p.o. 3 times daily General surgery reevaluated the patient, plan for repeat I&D tomorrow (2) DM type 2 (diabetes mellitus, type 2): Plan: A1c 6.3% in 02/2021 - hold home metformin -BSG [phone] Continue insulin sliding scale (3) Hyperlipidemia: Plan: - cont. home on statin (4) Hypertension: Plan: - hold home lisinopril for now, cont. metoprolol 50 bid Anxiety - cont. home Buspar DVT ppx: SCDs, pt ambulatory Plan plan of care discussed with patient in detail and at length all questions answered She is understanding, agreeable, comfortable with the plan of care Admission and Anticipated Discharge Date Admission Date: January 16, 2022 Subjective Follow-up for perirectal abscess, etc. Seen with ESCOBAR Martínez at the bedside throughout whole encounter Patient's sister also at the bedside visiting Patient states she still having 7 out of 10 pain around the buttock area Denies fevers chills, headache, chest pain, shortness of breath abdominal pain, nausea vomiting No other symptoms Review of Systems Review of Systems: all noted and negative except for above Physical Exam Physical Exam: General- oriented x 3, not in distress, speaks in sentences with no effort or accessory muscle use Eyes- anicteric Neck- no JVD Lungs- clear breath sounds bilaterally, no crackles or wheezing Heart- normal rate, regular rhythm; no murmurs Abdomen- normal bowel sounds, nondistended, soft, nontender Buttocks-wound opening in the left buttock, positive surrounding induration No erythema, positive tenderness, no warmth Extremities- no pretibial edema, no calf tenderness Neuro- alert, oriented x 3; no gross focal neurologic deficits Skin- warm & dry Results & Data Results & Data ([facility]) Vital Signs (Past 12 Hours) Vital Signs Temp Pulse Resp BP Pulse Ox O2 Del Method 01/21/22 15:13 36.5 C 97 H 20 116/80 97 Room Air 01/21/22 07:42 36.7 C 83 20 124/83 97 Room Air all noted and reviewed including below
[2022-01-21] MEDS: KETOROLAC TROMETHAMINE 15 MG/ML VIAL IV PRN (18:18)
[2022-01-21] MEDS: cefTRIAXone SODIUM 2,000 MG in DEXTROSE 5% 50 ML IV SCH (18:19)
[2022-01-21] MEDS ORDERED: PIPERACILLIN/TAZOBACTAM 4.5 GM in DEXTROSE 5% 100 ML IV SCH (20:00)
[2022-01-21] MEDS: metroNIDAZOLE 500 MG TAB PO SCH (21:43)
[2022-01-22] MEDS: SODIUM CHLORIDE 0.9% 1000ML 1,000 ML IV SCH ×2 (01:36→13:47)
[2022-01-22] MEDS: KETOROLAC TROMETHAMINE 15 MG/ML VIAL IV PRN (04:04)
[2022-01-22] MEDS ORDERED: VANCOMYCIN HCL 1,750 MG in SODIUM CHLORIDE 0.9% 500 ML IV ONE (06:00)
--- NOTE | 2022-01-22 07:10 | Anesthesiology Consultation ---
Date of Service January 22, 2022 Assessment & Plan Chart Review Chart Review: Acceptable Risk for Surgery and Patient NOT seen in Pre Admission Testing Consults Requested none ASA ASA3 Proposed Anesthesia Anesthesia Type: General History Surgery Operation Date: 01/16/22 11:00 Proposed Procedures p Arlene Rectal Abscess Incison and Drainage - Julio Watkins MD Operation Date: 01/22/22 09:00 Proposed Procedures p Incision and Drainage Perianal Abscess - Julio Watkins MD Height/Weight Height: 4 ft 9.5 in Weight: 70.1 kg Allergies Allergy/AdvReac Type Severity Reaction Status Date / Time hydrocodone Allergy Intermediate HIVES Verified 01/17/22 08:18 levofloxacin Allergy Intermediate Hives Verified 01/15/22 12:52 Medications Home Medications Medication Instructions Recorded Confirmed Last Taken albuterol sulfate 90 mcg/actuation 2 puff inhalation QID PRN 02/26/18 01/15/22 Unknown aerosol inhaler (ProAir HFA) Shortness Of Breath aspirin 81 mg chewable tablet 81 mg PO DAILY 02/26/18 01/15/22 07/18/18 22:00 multivitamin 1 tab PO DAILY 02/26/18 01/15/22 07/18/18 22:00 omega 9-vaj-sdr-fish oil 1,000 mg 1,000 mg PO DAILY 02/26/18 01/15/22 07/18/18 22:00 (120 mg-180 mg) capsule (Fish Oil) simvastatin 20 mg tablet 20 mg PO HS 02/26/18 01/15/22 07/22/18 22:00 calcium citrate 315 mg-vitamin D3 1 tab PO DAILY 07/10/18 01/15/22 07/18/18 22:00 5 mcg (200 unit) tablet (Calcium Citrate + D) fluticasone propionate 50 2 spray intranasal DAILY PRN 07/10/18 01/15/22 07/18/18 22:00 mcg/actuation nasal ALLERGY RELIEF spray,suspension lisinopril 5 mg tablet 5 mg PO QAM 07/10/18 01/15/22 07/22/18 09:00 metformin 500 mg tablet 1,000 mg PO BID 07/10/18 01/15/22 07/21/18 22:00 omeprazole 40 mg capsule,delayed 40 mg PO QAM 07/10/18 01/15/22 07/25/18 05:15 release peg 400-propylene glycol (PF) 0.4 1 drp ophthalmic (eye) BID PRN Dry 07/10/18 01/15/22 07/24/18 09:00 %-0.3 % eye drops in a dropperette Eyes (Systane (PF)) buspirone 10 mg tablet 10 mg PO .COMPLEX 01/10/20 01/15/22 Unknown lifitegrast 5 % eye drops in a 1 drp ophthalmic (eye) BID 01/10/20 01/15/22 Unknown dropperette (Xiidra) magnesium oxide 400 mg (241.3 mg 400 mg PO DAILY 01/10/20 01/15/22 Unknown magnesium) tablet metoprolol succinate 50 mg 50 mg PO BID 01/10/20 01/15/22 Unknown tablet,extended release 24 hr riboflavin (vitamin B2) 400 mg 400 mg PO DAILY 01/10/20 01/15/22 Unknown tablet Active Medications Generic Name Dose Route Start Last Admin Trade Name Freq PRN Reason Stop Dose Admin Acetaminophen 650 mg 01/15/22 15:20 01/19/22 23:45 Acetaminophen 325 Mg Tab PO 02/14/22 15:19 650 mg Q4H PRN Administration Pain or Fever Buspirone HCl 10 mg 01/16/22 09:00 01/21/22 08:38 Buspirone 5 Mg Tab PO 02/15/22 08:59 10 mg QAM [place] Administration Buspirone HCl 20 mg 01/15/22 21:00 01/21/22 21:42 Buspirone 5 Mg Tab PO 02/14/22 20:59 20 mg HS [place] Administration Docusate Sodium 100 mg 01/17/22 11:15 01/21/22 21:42 Docusate Sodium 100 Mg Cap PO 02/16/22 11:14 100 mg BID [place] Administration Sodium Chloride 1,000 mls @ 80 mls/hr 01/21/22 11:30 01/22/22 01:36 Nss 1000ml IV 02/20/22 11:29 80 mls/hr .[id number] [place] Administration Vancomycin HCl 1,750 mg/ 535 mls @ 200 mls/hr 01/22/22 06:00 01/22/22 05:30 Sodium Chloride IV 01/22/22 08:40 200 mls/hr NOW ONE Administration Ceftriaxone Sodium 2,000 mg/ 70 mls @ 100 mls/hr 01/21/22 18:00 01/21/22 21:48 Dextrose IV 01/28/22 17:59 Infused Q24H [place] Infusion Protocol Insulin Aspart 0 units 01/16/22 16:30 01/21/22 21:50 Insulin Aspart Per Unit SC 02/15/22 16:29 2 units ACHS [place] Administration Ketorolac Tromethamine 15 mg 01/17/22 16:48 01/22/22 04:04 Ketorolac Tromethamine 15 Mg/Ml Vial IV 01/22/22 16:47 15 mg Q6H PRN Administration moderate pain Lactobacillus Acidophilus 2 cap 01/21/22 09:15 01/21/22 11:15 Advanced Probiotic 1250 Mg Capsule PO 02/20/22 09:14 2 cap DAILY [place] Administration Metoprolol Succinate 50 mg 01/15/22 21:00 01/21/22 21:41 Metoprolol Succ 50mg Ext Rel Tab PO 02/14/22 20:59 50 mg BID [place] Administration Metronidazole 500 mg 01/21/22 21:00 01/21/22 21:43 Metronidazole 500 Mg Tab PO 01/28/22 20:59 500 mg TID [place] Administration Miscellaneous 1 each 01/16/22 00:00 01/22/22 01:36 Lifitegrast [Xiidra] 5 % ~ Order Awaiting Action N/A 02/15/22 00:00 1 each QS [place] Administration Oxycodone/Acetaminophen 1 tab 01/16/22 12:06 01/21/22 01:08 Oxycodone/Acetaminophen 5mg/325mg Tab PO 01/30/22 12:05 1 tab Q4H PRN Administration Pain Oxycodone/Acetaminophen 2 tab 01/16/22 12:06 01/21/22 21:49 Oxycodone/Acetaminophen 5mg/325mg Tab PO 01/30/22 12:05 2 tab Q4H PRN Administration Pain Simvastatin 20 mg 01/15/22 21:00 01/20/22 20:54 Simvastatin 20 Mg Tab PO 02/14/22 20:59 20 mg HS [place] Administration Past Medical History Medical History Allergic rhinitis due to pollen Anxiety Asthma Degenerative disc disease Diabetes mellitus, type 2 NIDDM Dry eye syndrome GERD (gastroesophageal reflux disease) CONTROLLED History of positive PPD S/P TX 1995/NEGATIVE SUBSEQUENT CXR'S Hyperlipidemia Hypertension Kidney stones Obstructive sleep apnea CPAP Osteoporosis Peripheral neuropathy Tachycardia CONTROLLED ON METOPROLOL Exercise / Class Metabolic Activity III < 4 Walking/Shop/Light housework Past Family History Family History Grandmother (Maternal) Diabetes Hypertension Mother Hypertension Septicemia Past Surgical History Surgical History H/O foot surgery H/O hysterectomy with oophorectomy H/O lithotripsy History of colonoscopy History of cystoscopy WITH STENT INSERTION History of esophagogastroduodenoscopy (EGD) History of lumbar fusion L4-5 2018 [place] History of nasal septoplasty History of tonsillectomy History of tooth extraction S/P hernia surgery Past Anesthesia History No Hx of Anesthesia Complications and No Family Hx of Anesthesia Complications History of PONV No Hx of PONV and No Hx of Motion Sickness Social History Smoking Status: Never smoker Hx Alcohol Use: No Hx Substance Use: No substance use type: does not use Physical Exam Vital Signs Last Vital Signs Temp 37.3 C 01/22/22 04:03 Pulse 105 H 01/22/22 04:03 Resp 18 01/22/22 04:03 BP 122/73 01/22/22 04:03 Pulse Ox 97 01/22/22 04:03 O2 Del Method 01/22/22 04:03 O2 Flow Rate 4 01/16/22 14:20 Testing Laboratory Results 01/21/22 06:25 01/21/22 06:25 01/15/22 16:52 Aerobic Blood Culture - Final Blood No growth in Aerobic bottle after 5 days. Anaerobic Blood Culture - Final No growth in Anaerobic bottle after 5 days. 01/15/22 16:52 Aerobic Blood Culture - Final Blood No growth in Aerobic bottle after 5 days. Anaerobic Blood Culture - Final No growth in Anaerobic bottle after 5 days. 01/18/22 17:41 Aerobic Blood Culture - Preliminary Blood No growth in Aerobic bottle after 48 hours. Anaerobic Blood Culture - Preliminary No growth in Anaerobic bottle after 48 hours. 01/18/22 17:32 Aerobic Blood Culture - Preliminary Blood No growth in Aerobic bottle after 48 hours. Anaerobic Blood Culture - Preliminary No growth in Anaerobic bottle after 48 hours. 01/22/22 01/21/22 04:11 20:11 POC Glucose 143 H 193 H Electrocardiogram Date: 01/16/22 Findings: + NSR @ (@ 96)
[2022-01-22] MEDS: metroNIDAZOLE 500 MG TAB PO SCH ×3 (07:30→21:05)
[2022-01-22] MEDS: INSULIN ASPART PER UNIT SC SCH ×4 (07:30→21:06)
[2022-01-22] MEDS: ADVANCED PROBIOTIC 1250 MG CAPSULE PO SCH (07:31)
[2022-01-22] MEDS: METOPROLOL SUCC 50MG EXT REL TAB PO SCH ×2 (07:31→21:05)
[2022-01-22] MEDS: busPIRone 5 MG TAB PO SCH ×2 (07:31→21:05)
[2022-01-22] MEDS: DOCUSATE SODIUM 100 MG CAP PO SCH ×2 (07:31→21:05)
[2022-01-22] MEDS: oxyCODONE/ACETAMINOPHEN 5mg/325mg TAB PO PRN ×2 (07:35→18:55)
--- NOTE | 2022-01-22 08:27 | History & Physical Bridge Note ---
Date of Service January 22, 2022 History & Physical Bridge Note I have examined the patient, reviewed the History & Physical and in the interval since the performance of the History & Physical I have noted the following changes of clinical significance: no changes noted
[2022-01-22 09:14] LABS: Basophils # (auto) 0.09 K/uL (0-0.2); Basophils % (auto) 0.6 %; Eosinophils # (auto) 0.45 K/uL (0-0.50); Eosinophils % (auto) 2.8 %; Hematocrit (blood only) 31.3 % (34.1-44.9); Hemoglobin 10.2 g/dl (12.0-16.0); Immature Granulocytes # (auto) 0.29 K/uL (0.00-0.02); Immature Granulocytes % (auto) 1.8 %; Lymphocytes # (auto) 2.82 K/uL (1.2-3.4); Lymphocytes % (auto) 17.8 %; Mean Corpuscular Hemoglobin 28.7 pg (25.0-34.0); Mean Corpuscular Hgb Conc 32.6 g/dL (32.0-36.0); Mean Corpuscular Volume 87.9 fL (80.0-100.0); Mean Platelet Volume 8.9 fL (9.4-12.3); Monocytes # (auto) 1.01 K/uL (0.24-0.82); Monocytes % (auto) 6.4 %; Neutrophils # (auto) 11.19 K/uL (1.4-6.5); Neutrophils % (auto) 70.6 %; Platelet Count 413 K/uL (130-400); RDW Coefficient of Variation 14.8 % (11.5-14.5); RDW Standard Deviation 48.1 fL (36.4-46.3); Red Blood Count 3.56 M/uL (3.93-5.22); White Blood Count 15.85 K/ul (4.8-10.8)
[2022-01-22] MEDS ORDERED: BUPIVACAINE/EPINEPHRINE 0.5% MPF 1:200,000 10 ML VIAL ONE (09:36)
[2022-01-22] MEDS ORDERED: fentaNYL citrate 100 MCG/2 ML VIAL ONE (09:37)
[2022-01-22] MEDS ORDERED: MIDAZOLAM HCL 1 MG/ML 2ML VIAL ONE ×2 (09:37→10:25)
[2022-01-22 09:40] LABS: Calcium 8.6 mg/dl (8.5-10.1); Creatinine Clr Calc Pharmacy 92.5 ml/min; Est GFR (African American) 119.6 ml/min; Est GFR (Non-African American) 103.2 ml/min; Potassium 3.8 mmol/L (3.5-5.1)
[2022-01-22] MEDS ORDERED: ePHEDrine sulfate 50 MG/ML AMP IV PRN (10:31)
[2022-01-22] MEDS ORDERED: fentaNYL citrate 100 MCG/2 ML VIAL IV PRN (10:31)
[2022-01-22] MEDS ORDERED: ONDANSETRON INJ 2 MG/ML 2 ML VIAL IV PRN (10:31)
[2022-01-22] MEDS ORDERED: FLUMAZENIL 0.1 MG/1 ML 10 ML VIAL IV PRN (10:31)
[2022-01-22] MEDS ORDERED: LABETALOL HCL IV 5 MG/ML 20ML IV PRN (10:31)
[2022-01-22] MEDS ORDERED: NALOXONE HCL 0.4 MG/1 ML VIAL/CARP IV PRN (10:31)
[2022-01-22] MEDS ORDERED: ATROPINE SULFATE 0.1 MG/ML 10ML SYR IV PRN (10:31)
[2022-01-22] MEDS ORDERED: PROMETHAZINE HCL 12.5 MG in SODIUM CHLORIDE 0.9% 50 ML IV PRN (10:31)
--- NOTE | 2022-01-22 10:40 | Pharmacy Report ---
Pharmacy PK ABX Note - Date of Service January 22, 2022 - Assessment and Plan Assessment 62 year old F receiving Vancomycin, Ceftriaxone and Metronidazole for treatment of perianal abscess. * PMHx significant for T2DM. * Received Zosyn from 01/15/22-01/21/22. Underwent I&D of abscess on 01/16/22. * ID consulted and recommended current regimen. Blood cx negative from 01/15/22 and 01/18/22. * Will return to OR today for another I&D. Plan Vancomycin * Loading dose: 1750 mg IV x 1 * Maintenance dose: 1250 mg IV every 12 hours * Regimen is predicted to achieve target AUC/VALERIE of 400-600 mg/L.hr * Trough level ordered for: 01/23/22 Pharmacy will continue to follow and will adjust dose/frequency as necessary. Thank you. Pharmacy has transitioned to AUC monitoring for vancomycin. AUC/VALERIE is the preferred PK/PD target and is associated with decreased risk of nephrotoxicity compared to traditional trough targets.
--- NOTE | 2022-01-22 10:42 | Post Operative Brief Note ---
Immediate Post Op Note v1 Date of Surgery January 22, 2022 Pre & Post Diagnosis Operation Date: 01/16/22 11:00 Pre-Op Diagnosis: PERIRECTAL ABSCESS Post-Op Diagnosis: PERIRECTAL ABSCESS Operation Date: 01/22/22 09:00 <No data on this case meets the specified criteria> I identified the patient and participated in the time-out.: Yes Procedure Operation Date: 01/16/22 11:00 Actual Procedures p Arlene Rectal Abscess Incison and Drainage(Not Applicable) - Julio Watkins MD Operation Date: 01/22/22 09:00 <No data on this case meets the specified criteria> Surgeon Julio Watkins MD Thermoforming Operator none Estimated Blood Loss 10 Findings Consistent with Post-Op Diagnosis
--- NOTE | 2022-01-22 11:04 | Anesthesiology Progress Note ---
Date of Service January 22, 2022 Anesthesia Post Procedure Vital Signs Vital Signs: Temp Pulse Resp BP BP Pulse Ox O2 Del Method 01/22/22 07:24 36.8 C 101 H 19 129/73 96 Room Air 01/22/22 04:03 37.3 C 105 H 18 122/73 97 Room Air 01/21/22 22:17 36.9 C 91 H 20 98/64 L 97 Room Air 01/21/22 15:13 36.5 C 97 H 20 116/80 97 Room Air Pain Intensity Rectal: Pain Intensity: 9 Transfer of Care Handoff Completed per policy Notes Mental Status: alert / awake / arousable Patient Amnestic to Procedure: Yes Nausea / Vomiting: adequately controlled Pain: adequately controlled Airway Patency, RR, SpO2: stable & adequate BP & HR: stable & adequate Hydration State: stable & adequate Neuraxial Anesthesia: was administered and sensory block is resolving Anesthetic Complications: no major complications apparent
--- NOTE | 2022-01-22 12:23 | Operative Report (OR) ---
DATE OF SURGERY: 01/22/2022 PREOPERATIVE DIAGNOSIS: Recurrent perirectal abscess. POSTOPERATIVE DIAGNOSIS: Recurrent perirectal abscess. PROCEDURES PERFORMED: I and D of complex perirectal abscess. SURGEON: Julio Watkins M.D. ANESTHESIA: Saddle block with 0.5% Marcaine local. ESTIMATED BLOOD LOSS: 5 mL. PROFESSIONAL SECURITY OFFICER: None. SPECIMENS: Anaerobic, aerobic, and fungal cultures. DRAINS: None. COMPLICATIONS: None. INDICATIONS FOR PROCEDURE: This is a 62-year-old female, who was admitted last week with a perirecta l abscess and this was drained. She continued her hospitalization with continued pain, discomfort, a nd some fevers and white count. Repeat scan was done yesterday, which showed a recurrent abscess mor e posterior and to the right inner perianal area. We talked in detail about this and recommended a r epeat I and D. She understands this and wishes to proceed. She understands the risk of recurrent ab scess, fistula, and bleeding. DESCRIPTION OF PROCEDURE: The patient was taken to the OR after receiving excellent saddle block. S he was placed in the jackknife position. Her perianal area was prepped and draped in normal sterile fashion. With good anorectal exam, you could see an area of induration, which she did not have previ ously and this was posteriorly at the 6 to 7 o'clock position. A small stab incision was made and a large amount of pus was obtained. This was then cultured with aerobic, anaerobic, and fungal culture s. The cavity was irrigated out and completely drained. A finger fracture technique was used to lucien ak down the loculations. Once again, it was irrigated out. Marcaine 0.5% with epinephrine local was used to create a local field block. This was then packed with iodoform gauze and a sterile dressing was applied. She tolerated the procedure well without any complications and sent to postop recovery for a period of observation, and then will be sent to the floor for her care. Job ID: [id number]
[2022-01-22] MEDS: VANCOMYCIN HCL 1,250 MG in SODIUM CHLORIDE 0.9% 250 ML IV SCH (15:25)
--- NOTE | 2022-01-22 17:43 | Hospitalist Progress Note ---
Date of Service January 22, 2022 Assessment & Plan (1) Perirectal abscess: Plan: Per Dr. Andrea's notes with addendum: - CT pelvis - 3.1 cm perianal abscess at the 12:00 position with surrounding cellulitis as detailed above. - fever noted at home, pain in perrectal area in last 1-2 weeks - blood cultures obtained and will follow results - no growth to date - surgery contacted by ED, recommend IV Abx and pt was started on zosyn - s/p I&D by gen. surgery (01/16) - packing removed by surgery the next day after I&D, bloody drainage noted - then overnight pt febrile 38.6C - repeated blood cultx - negat. thus far. - cont. zosyn, added doxy - further discussed w/ surgery - 01/20 - pt febrile again overnight. Examined the pt w/ surgeon at the bedside. Plan to cont. IV Abx. If cont. to be febrile, have elev. WBC etc. likely will re-image the area (repeat CT pelvis) - Continue to closely monitor 01/21 CT pelvis: There is an enlarging perianal abscess with surrounding cellulitis as detailed above. ID consulted Change antibiotics to: Vancomycin IV daily to maintain trough 15-20 Ceftriaxone 2 g IV daily Flagyl 500 mg p.o. 3 times daily General surgery reevaluated the patient, plan for repeat I&D tomorrow 01/22 For repeat I&D today Continue current antibiotic Monitor closely (2) DM type 2 (diabetes mellitus, type 2): Plan: A1c 6.3% in 02/2021 - hold home metformin -BSG 115-132 Continue insulin sliding scale (3) Hyperlipidemia: Plan: - cont. home on statin (4) Hypertension: Plan: - hold home lisinopril for now, cont. metoprolol 50 bid Anxiety - cont. home Buspar DVT ppx: SCDs, pt ambulatory Plan plan of care discussed with patient and her family at bedside in detail and at length all questions answered they are understanding, agreeable, comfortable with the plan of care Admission and Anticipated Discharge Date Admission Date: January 16, 2022 Subjective Follow-up for perirectal abscess, etc. Seen resting in bed, comfortable, not distressed States she still having significant pain over the perirectal area but manageable by pain medications No fevers or chills No other new symptom Review of Systems Review of Systems: all noted and negative except for above Physical Exam Physical Exam: General- oriented x 3, not in distress, speaks in sentences with no effort or accessory muscle use Eyes- anicteric Neck- no JVD Lungs- clear BSs bilaterally, no rales/wheezes Heart- normal rate, regular rhythm; no murmurs Abdomen- normal bowel sounds, nondistended, soft, no tenderness Extremities- no pretibial edema, no calf tenderness Neuro- alert, oriented x 3; no gross focal neurologic deficits Skin- warm & dry Results & Data Results & Data ([facility]) Vital Signs (Past 12 Hours) Vital Signs Temp Pulse Pulse Resp BP BP Pulse Ox 01/22/22 15:45 36.8 C 98 H 17 138/81 99 01/22/22 13:29 36.8 C 93 H 18 144/79 H 96 01/22/22 12:35 36.8 C 82 19 123/81 99 01/22/22 11:53 36.9 C 82 18 130/84 97 01/22/22 11:25 36.1 C L 83 22 139/81 100 01/22/22 11:05 79 20 113/62 93 01/22/22 10:55 87 13 118/69 97 01/22/22 11:15 62 20 123/84 100 01/22/22 10:49 36 C L 88 12 118/72 98 01/22/22 07:24 36.8 C 101 H 19 129/73 96 O2 Del Method O2 Flow Rate 01/22/22 15:45 Room Air 01/22/22 13:29 Room Air 01/22/22 12:35 Room Air 01/22/22 11:53 Room Air 01/22/22 11:25 Nasal Cannula 2 01/22/22 11:05 Room Air 01/22/22 10:55 Room Air 01/22/22 11:15 Nasal Cannula 2 01/22/22 10:49 Room Air 01/22/22 07:24 Room Air all noted and reviewed including below
[2022-01-22] MEDS: cefTRIAXone SODIUM 2,000 MG in DEXTROSE 5% 50 ML IV SCH (18:51)
[2022-01-22] MEDS: SIMVASTATIN 20 MG TAB PO SCH (21:06)
[2022-01-23] MEDS: SODIUM CHLORIDE 0.9% 1000ML 1,000 ML IV SCH ×2 (01:37→13:39)
[2022-01-23] MEDS: VANCOMYCIN HCL 1,250 MG in SODIUM CHLORIDE 0.9% 250 ML IV SCH ×4 (01:37→21:41)
[2022-01-23] MEDS: MoRPHine SULFATE 2 MG/ML CARP IV PRN ×2 (01:42→10:32)
[2022-01-23 06:29] LABS: Creatinine Clr Calc Pharmacy 108.9 ml/min; Est GFR (African American) 126.2 ml/min; Est GFR (Non-African American) 108.9 ml/min
[2022-01-23 08:53] LABS: Basophils # (auto) 0.08 K/uL (0-0.2); Basophils % (auto) 0.7 %; Eosinophils # (auto) 0.46 K/uL (0-0.50); Eosinophils % (auto) 4.1 %; Hematocrit (blood only) 28.7 % (34.1-44.9); Hemoglobin 9.4 g/dl (12.0-16.0); Immature Granulocytes # (auto) 0.23 K/uL (0.00-0.02); Immature Granulocytes % (auto) 2.1 %; Lymphocytes # (auto) 2.44 K/uL (1.2-3.4); Mean Corpuscular Hemoglobin 28.7 pg (25.0-34.0); Mean Corpuscular Hgb Conc 32.8 g/dL (32.0-36.0); Mean Corpuscular Volume 87.8 fL (80.0-100.0); Mean Platelet Volume 9.3 fL (9.4-12.3); Monocytes # (auto) 0.71 K/uL (0.24-0.82); Monocytes % (auto) 6.4 %; Neutrophils # (auto) 7.18 K/uL (1.4-6.5); Neutrophils % (auto) 64.7 %; Nucleated RBC # (auto) 0.02 K/uL (0-0); Nucleated RBC % (auto) 0.2 %; Platelet Count 420 K/uL (130-400); RDW Coefficient of Variation 15.1 % (11.5-14.5); RDW Standard Deviation 48.6 fL (36.4-46.3); Red Blood Count 3.27 M/uL (3.93-5.22)
[2022-01-23] MEDS: INSULIN ASPART PER UNIT SC SCH ×4 (08:59→20:58)
[2022-01-23] MEDS: metroNIDAZOLE 500 MG TAB PO SCH ×3 (09:04→21:41)
[2022-01-23] MEDS: DOCUSATE SODIUM 100 MG CAP PO SCH ×2 (09:04→21:41)
[2022-01-23] MEDS: busPIRone 5 MG TAB PO SCH ×2 (09:04→21:40)
[2022-01-23] MEDS: ADVANCED PROBIOTIC 1250 MG CAPSULE PO SCH (09:05)
[2022-01-23] MEDS: METOPROLOL SUCC 50MG EXT REL TAB PO SCH ×2 (09:05→21:40)
--- NOTE | 2022-01-23 10:58 | Surgery Progress Note ---
Date of Service January 23, 2022 Assessment & Plan (1) Perianal abscess: Plan: dry dressings daily await cultures possibly home in AM Admission and Anticipated Discharge Date Admission Date: January 16, 2022 Subjective feels better Review of Systems Constitutional: no fever and no chills Gastrointestinal: no abdominal pain, no nausea and no vomiting Genitourinary: no dysuria Physical Exam Constitutional: WD/WN, vitals as above Gastrointestinal (Abdomen): Inspection/Auscultation: abdomen normal to inspection and normal bowel sounds; abdomen not distended packing removed; reddness improved Results & Data ([facility]) Vital Signs (Past 12 Hours) Vital Signs Temp Pulse Resp BP BP Pulse Ox O2 Del Method 01/23/22 09:03 96 H 109/74 01/23/22 07:05 36.7 C 94 H 18 151/95 H 96 Room Air 01/23/22 02:37 36.8 C 77 18 107/54 L 95 Room Air
[2022-01-23] MEDS ORDERED: VANCOMYCIN LEVEL ONE (13:30)
--- NOTE | 2022-01-23 14:40 | Pharmacy Report ---
Pharmacy PK ABX Note - Date of Service January 23, 2022 - Assessment and Plan Assessment 62 year old F receiving Vancomycin, Ceftriaxone and Metronidazole for treatment of perianal abscess. * PMHx significant for T2DM. * Received Zosyn from 01/15/22-01/21/22. Underwent I&D of abscess on 01/16/22 and 01/22/22. * ID consulted and recommended current regimen. Blood cx negative from 01/15/22 and 01/18/22. Plan Vancomycin * Current regimen: 1250 mg IV every 12 hours * Trough level obtained 01/23/22 resulted as 7.2 mcg/mL. This is subtherapeutic. * Change to 1250 mg IV every 8 hours. Predicted AUC at steady state: 536 mg/L.hr * Repeat trough level ordered for: 01/24/22 Pharmacy will continue to follow and will adjust dose/frequency as necessary. Thank you. Pharmacy has transitioned to AUC monitoring for vancomycin. AUC/VALERIE is the preferred PK/PD target and is associated with decreased risk of nephrotoxicity compared to traditional trough targets.
[2022-01-23] MEDS ORDERED: BENZOCAINE 20% (ORAJEL) 11.9 GM TUBE MT PRN (15:23)
--- NOTE | 2022-01-23 15:31 | Hospitalist Progress Note ---
Date of Service January 23, 2022 Assessment & Plan (1) Perirectal abscess: Plan: Per Dr. Andrea's notes with addendum: - CT pelvis - 3.1 cm perianal abscess at the 12:00 position with surrounding cellulitis as detailed above. - fever noted at home, pain in perrectal area in last 1-2 weeks - blood cultures obtained and will follow results - no growth to date - surgery contacted by ED, recommend IV Abx and pt was started on zosyn - s/p I&D by gen. surgery (01/16) - packing removed by surgery the next day after I&D, bloody drainage noted - then overnight pt febrile 38.6C - repeated blood cultx - negat. thus far. - cont. zosyn, added doxy - further discussed w/ surgery - 01/20 - pt febrile again overnight. Examined the pt w/ surgeon at the bedside. Plan to cont. IV Abx. If cont. to be febrile, have elev. WBC etc. likely will re-image the area (repeat CT pelvis) - Continue to closely monitor 01/21 CT pelvis: There is an enlarging perianal abscess with surrounding cellulitis as detailed above. ID consulted Change antibiotics to: Vancomycin IV daily to maintain trough 15-20 Ceftriaxone 2 g IV daily Flagyl 500 mg p.o. 3 times daily General surgery reevaluated the patient, plan for repeat I&D tomorrow 01/22 For repeat I&D today Continue current antibiotic Monitor closely 01/23 doing well today afebrile, WBC trending down wound culture: pending discussed with Dr. Watkins continue Abx regimen (2) DM type 2 (diabetes mellitus, type 2): Plan: A1c 6.3% in 02/2021 - hold home metformin -BSG 108 Continue insulin sliding scale (3) Hyperlipidemia: Plan: - cont. home on statin (4) Hypertension: Plan: - hold home lisinopril for now, cont. metoprolol 50 bid Anxiety - cont. home Buspar DVT ppx: SCDs, pt ambulatory Plan plan of care discussed with patient and her family at bedside in detail and at length all questions answered they are understanding, agreeable, comfortable with the plan of care Admission and Anticipated Discharge Date Admission Date: January 16, 2022 Subjective ff up for perirectal abscess, etc seen resting in bed sitting up in good spirits states she was having significant pain overnight at the surgical site much better this morning no chest pain, dyspnea, palpitations, dizziness no other symptoms Review of Systems Review of Systems: all noted and negative except for above Physical Exam Physical Exam: General- oriented x 3, not in distress, speaks in sentences with no effort or accessory muscle use Eyes- anicteric Neck- no JVD Lungs- clear breath sounds bilaterally, no rales/wheezes Heart- normal rate, regular rhythm; no murmurs Abdomen- normal bowel sounds, nondistended, soft,no tenderness L buttock- incision with packing in place mild tenderness, but not erythema/induration Extremities- no pretibial edema, no calf tenderness Neuro- alert, oriented x 3; no gross focal neurologic deficits Skin- warm & dry Results & Data Results & Data ([facility]) Vital Signs (Past 12 Hours) Vital Signs Temp Pulse Resp BP Pulse Ox O2 Del Method 01/23/22 09:03 96 H 109/74 01/23/22 07:05 36.7 C 94 H 18 151/95 H 96 Room Air all noted and reviewed including below
[2022-01-23] MEDS: cefTRIAXone SODIUM 2,000 MG in DEXTROSE 5% 50 ML IV SCH (17:35)
[2022-01-23] MEDS: SIMVASTATIN 20 MG TAB PO SCH (21:40)
[2022-01-24] MEDS: SODIUM CHLORIDE 0.9% 1000ML 1,000 ML IV SCH (03:59)
[2022-01-24] MEDS: VANCOMYCIN HCL 1,250 MG in SODIUM CHLORIDE 0.9% 250 ML IV SCH ×2 (06:07→17:00)
[2022-01-24 08:09] LABS: Basophils % (auto) 0.9 %; Eosinophils # (auto) 0.44 K/uL (0-0.50); Eosinophils % (auto) 4.1 %; Hematocrit (blood only) 32.4 % (34.1-44.9); Hemoglobin 10.6 g/dl (12.0-16.0); Immature Granulocytes # (auto) 0.45 K/uL (0.00-0.02); Immature Granulocytes % (auto) 4.2 %; Lymphocytes # (auto) 2.48 K/uL (1.2-3.4); Lymphocytes % (auto) 23.1 %; Mean Corpuscular Hemoglobin 28.7 pg (25.0-34.0); Mean Corpuscular Hgb Conc 32.7 g/dL (32.0-36.0); Mean Corpuscular Volume 87.8 fL (80.0-100.0); Monocytes % (auto) 5.6 %; Neutrophils # (auto) 6.65 K/uL (1.4-6.5); Neutrophils % (auto) 62.1 %; Nucleated RBC # (auto) 0.02 K/uL (0-0); Nucleated RBC % (auto) 0.2 %; Platelet Count 496 K/uL (130-400); Red Blood Count 3.69 M/uL (3.93-5.22); White Blood Count 10.72 K/ul (4.8-10.8)
[2022-01-24 08:29] LABS: BUN Creatinine Ratio 20.4 (10-20); Calcium 8.5 mg/dl (8.5-10.1); Est GFR (African American) 122.7 ml/min; Est GFR (Non-African American) 105.9 ml/min; Potassium 3.8 mmol/L (3.5-5.1)
[2022-01-24] MEDS: INSULIN ASPART PER UNIT SC SCH ×2 (08:54→12:36)
[2022-01-24] MEDS: METOPROLOL SUCC 50MG EXT REL TAB PO SCH (08:55)
[2022-01-24] MEDS: metroNIDAZOLE 500 MG TAB PO SCH ×2 (08:55→13:50)
[2022-01-24] MEDS: ADVANCED PROBIOTIC 1250 MG CAPSULE PO SCH (08:56)
[2022-01-24] MEDS: busPIRone 5 MG TAB PO SCH (08:56)
[2022-01-24] MEDS ORDERED: VANCOMYCIN LEVEL ONE (14:30)
--- NOTE | 2022-01-24 15:07 | Surgery Progress Note ---
Date of Service January 24, 2022 Assessment & Plan (1) Perianal abscess: Plan Postop day #2/POD# 8 status post incision and drainage -, Afebrile, vital signs stable Leukocytosis resolved Postop pain controlled not requiring narcotics today Some diarrhea some formed stool No nausea no vomiting Plan: Both I&D sites look well and are healing. There is no surrounding induration or fluctuance. Culture showing multiple mixed christina in which ID recommended p.o. Augmentin on discharge. Okay from surgical standpoint for discharge today discussed daily dressing changes as needed with ABD pad and mesh panties. Sitz bath's twice a day and after each bowel movement Continue pain management as needed continue bowel regimen to avoid any constipation Close follow-up with Dr. Watkins next Monday Discussed with Dr. Garsia who agrees with above. Admission and Anticipated Discharge Date Admission Date: January 16, 2022 Subjective Feeling much better today not requiring any pain medication Having some diarrhea however did have a formed stool this morning No fevers or chills No nausea no vomiting tolerating diet Physical Exam Constitutional: WD/WN, vitals as above cooperative; no acute distress and not ill appearing Gastrointestinal (Abdomen): External rectal exam: Both incisions are clean and dry no significant surrounding erythema there is mild tenderness to palpation surrounding both incision sites. No active drainage No induration or fluctuance palpated Skin: no rashes, warm and dry Psychiatric: Orientation: alert and oriented x 3 Results & Data ([facility]) Vital Signs (Past 12 Hours) Vital Signs Temp Pulse Resp BP Pulse Ox O2 Del Method 01/24/22 08:09 36.5 C 76 18 127/79 99 Room Air Laboratory Results 01/24/22 01/24/22 01/24/22 Range/Units 17:01 12:25 08:26 WBC (4.8-10.8) K/ul RBC (3.93-5.22) M/uL Hgb (12.0-16.0) g/dl Hct (34.1-44.9) % MCV (80.0-100.0) fL MCH (25.0-34.0) pg MCHC (32.0-36.0) g/dL RDW Std Deviation (36.4-46.3) fL RDW Coeff of Maryann (11.5-14.5) % Plt Count (130-400) K/uL MPV (9.4-12.3) fL Immature Gran % (Auto) % Neut % (Auto) % Lymph % (Auto) % Mckinley % (Auto) % Eos % (Auto) % Baso % (Auto) % Neut # (Auto) (1.4-6.5) K/uL Lymph # (Auto) (1.2-3.4) K/uL Mckinley # (Auto) (0.24-0.82) K/uL Eos # (Auto) (0-0.50) K/uL Baso # (Auto) (0-0.2) K/uL Immature Gran # (Auto) (0.00-0.02) K/uL Absolute Nucleated RBC (0-0) K/uL Nucleated RBC % (auto) % Sodium (136-145) mmol/L Potassium (3.5-5.1) mmol/L Chloride (98-107) mmol/L Carbon Dioxide (21-32) mmol/L Anion Gap (3-11) BUN (6-23) mg/dl Creatinine (0.6-1.2) mg/dl Est Cr Clr Drug Dosing ml/min Est GFR ( Amer) ml/min Est GFR (Non-Af Amer) ml/min BUN/Creatinine Ratio (10-20) Glucose (70-99(Fasting)) mg/dl POC Glucose 106 H 138 H 141 H (70-99) mg/dl Calcium (8.5-10.1) mg/dl 01/24/22 01/24/22 01/23/22 Range/Units 07:36 07:36 20:39 WBC 10.72 (4.8-10.8) K/ul RBC 3.69 L (3.93-5.22) M/uL Hgb 10.6 L (12.0-16.0) g/dl Hct 32.4 L (34.1-44.9) % MCV 87.8 (80.0-100.0) fL MCH 28.7 (25.0-34.0) pg MCHC 32.7 (32.0-36.0) g/dL RDW Std Deviation 48.0 H (36.4-46.3) fL RDW Coeff of Maryann 15.0 H (11.5-14.5) % Plt Count 496 H (130-400) K/uL MPV 9.0 L (9.4-12.3) fL Immature Gran % (Auto) 4.2 % Neut % (Auto) 62.1 % Lymph % (Auto) 23.1 % Mckinley % (Auto) 5.6 % Eos % (Auto) 4.1 % Baso % (Auto) 0.9 % Neut # (Auto) 6.65 H (1.4-6.5) K/uL Lymph # (Auto) 2.48 (1.2-3.4) K/uL Mckinley # (Auto) 0.60 (0.24-0.82) K/uL Eos # (Auto) 0.44 (0-0.50) K/uL Baso # (Auto) 0.10 (0-0.2) K/uL Immature Gran # (Auto) 0.45 H (0.00-0.02) K/uL Absolute Nucleated RBC 0.02 H (0-0) K/uL Nucleated RBC % (auto) 0.2 % Sodium 137 (136-145) mmol/L Potassium 3.8 (3.5-5.1) mmol/L Chloride 108 H (98-107) mmol/L Carbon Dioxide 25 (21-32) mmol/L Anion Gap 4 (3-11) BUN 10 (6-23) mg/dl Creatinine 0.49 L (0.6-1.2) mg/dl Est Cr Clr Drug Dosing 100.0 ml/min Est GFR ( Amer) 122.7 ml/min Est GFR (Non-Af Amer) 105.9 ml/min BUN/Creatinine Ratio 20.4 H (10-20) Glucose 135 H (70-99(Fasting)) mg/dl POC Glucose 102 H (70-99) mg/dl Calcium 8.5 (8.5-10.1) mg/dl Microbiology 01/22/22 Unknown Gram Stain - Final Rectal Abscess Aerobic and Anaerobic Culture - Preliminary Low counts mixed probable gastrointestinal microbiota. 01/18/22 17:41 Aerobic Blood Culture - Final Blood No growth in Aerobic bottle after 5 days. Anaerobic Blood Culture - Final No growth in Anaerobic bottle after 5 days. 01/18/22 17:32 Aerobic Blood Culture - Final Blood No growth in Aerobic bottle after 5 days. Anaerobic Blood Culture - Final No growth in Anaerobic bottle after 5 days. 12/03/22 Unknown Fungal Smear - Final Tissue,Undefined Fungal Culture - Preliminary No yeast or fungus isolated - Report 1, Additional Report to Follow.
--- NOTE | 2022-01-24 19:29 | Hospitalist Progress Note ---
Date of Service January 24, 2022 delayed entry date of service noted above Assessment & Plan (1) Perirectal abscess: Plan: Per Dr. Andrea's notes with addendum: - CT pelvis - 3.1 cm perianal abscess at the 12:00 position with surrounding cellulitis as detailed above. - fever noted at home, pain in perrectal area in last 1-2 weeks - blood cultures: negative - s/p I&D by gen. surgery (01/16) - packing removed by surgery the next day after I&D, bloody drainage noted no wound cultures given IV Zosyn - then overnight pt febrile 38.6C - repeated blood cultx - negative 01/21 CT pelvis: There is an enlarging perianal abscess with surrounding cellulitis as detailed above. ID consulted Changed antibiotics to: Vancomycin IV daily to maintain trough 15-20 Ceftriaxone 2 g IV daily Flagyl 500 mg p.o. 3 times daily General surgery reevaluated the patient, plan for repeat I&D tomorrow s/p repeat I&D 01/[address] Watkins with removal of abscess patient significantly improved after repeat drainage afebrile, WBC noramalized wound culture: Moderate Gram Positive Cocci Few Gram Negative Bacilli Few Gram Positive Bacilli Aero/Ileana Cult Final 01/27/22-1131 Organism 1 Bacteroides thetaiotaomicron Quantity Moderate Sens No Sensitivities to Follow +MixWound Plus Low Counts of Probable Intestinal Radha discussed with ID- recommend to continue Augmentin BID x 10 more days ff up with General Surgery (2) DM type 2 (diabetes mellitus, type 2): Plan: A1c 6.3% in 02/2021 continue Metformin (3) Hyperlipidemia: Plan: - cont. home on statin (4) Hypertension: Plan: continue Lisinopril and Metoprolol Anxiety - cont. home Buspar d/c home ff up with PCP 1 week ff up with GenSurgery 1-2 weeks Plan plan of care discussed with patient and her family at bedside in detail and at length all questions answered they are understanding, agreeable, comfortable with the plan of care Admission and Anticipated Discharge Date Admission Date: January 16, 2022 Subjective ff up for perirectal abscess, etc comfortable, in good spirits states pain is much better 1-2/10 no fever/chills no problems with BM no other symptoms had 1 loose BM earlier in AM states she is ready for discharge Review of Systems Review of Systems: all noted and negative except for above Physical Exam Physical Exam: General- oriented x 3, not in distress, speaks in sentences with no effort or accessory muscle use Eyes- anicteric Neck- no JVD Lungs- clear BS bilaterally, no rales/wheezes Heart- normal rate, regular rhythm; no murmurs Abdomen- normal bowel sounds, nondistended, soft, no tenderness Extremities- no pretibial edema, no calf tenderness Neuro- alert, oriented x 3; no gross focal neurologic deficits Skin- warm & dry Results & Data Results & Data ([facility]) Vital Signs (Past 12 Hours) Vital Signs Temp Pulse Pulse Resp BP BP Pulse Ox 01/24/22 15:31 36.7 C 93 H 91 H 18 107/54 L 120/76 97 01/24/22 15:29 36.7 C 91 H 18 120/76 97 01/24/22 08:09 36.5 C 76 18 127/79 99 O2 Del Method 01/24/22 15:31 01/24/22 15:29 Room Air 01/24/22 08:09 Room Air all noted and reviewed including below
[2022-01-25] MEDS ORDERED: VANCOMYCIN LEVEL ONE (06:30)
--- NOTE | 2022-01-28 16:38 | Discharge Summary ---
Discharge Summary Date of Service January 28, 2022 delayed entry date of service January 24, 2022 Notes For Next Care Provider Medication Changes From Visit Augmentin BID x 10 days Percocet PRN Admission HPI Per Admitting Provider This 62-year-old female patient presented to ED with rectal pain. It has been present for past 1-2 weeks that is progressively getting worse. She states that it feels like something is inside of her rectum causing a lot of pressure. She is having trouble walking, sitting, or sleeping because of the pain. She has had fevers 100.1 F max mostly in the evening at home along with nausea and vomiting as well. Admission Exam Per Admitting Provider Constitutional: WD/WN, vitals as above Eyes: PERRL, conjunctivae normal, anicteric sclerae ENMT: external ear and nose normal, oropharynx normal Neck: trachea midline Respiratory: normal respiratory effort, lungs clear to auscultation Cardiovascular: RRR, no murmur, no edema Gastrointestinal (Abdomen): normal bowel sounds, soft, nontender, no hepatosplenomegaly Rectal Exam: + rectal tenderness Musculoskeletal: Head/Neck/Chest: normocephalic and head atraumatic Skin: no rashes, warm and dry Principal Dx & Hospital Course #1 = Principal Diagnosis (1) Perirectal abscess: Per Dr. Andrea's notes with addendum: - CT pelvis - 3.1 cm perianal abscess at the 12:00 position with surrounding cellulitis as detailed above. - fever noted at home, pain in perrectal area in last 1-2 weeks - blood cultures: negative - s/p I&D by gen. surgery (01/16) - packing removed by surgery the next day after I&D, bloody drainage noted no wound cultures given IV Zosyn - then overnight pt febrile 38.6C - repeated blood cultx - negative 01/21 CT pelvis: There is an enlarging perianal abscess with surrounding cellulitis as detailed above. ID consulted Changed antibiotics to: Vancomycin IV daily to maintain trough 15-20 Ceftriaxone 2 g IV daily Flagyl 500 mg p.o. 3 times daily General surgery reevaluated the patient, plan for repeat I&D tomorrow s/p repeat I&D 01/[address] Watkins with removal of abscess patient significantly improved after repeat drainage afebrile, WBC noramalized wound culture: Moderate Gram Positive Cocci Few Gram Negative Bacilli Few Gram Positive Bacilli Aero/Ileana Cult Final 01/27/22-1131 Organism 1 Bacteroides thetaiotaomicron Quantity Moderate Sens No Sensitivities to Follow +MixWound Plus Low Counts of Probable Intestinal Radha discussed with ID- recommend to continue Augmentin BID x 10 more days ff up with General Surgery (2) DM type 2 (diabetes mellitus, type 2): A1c 6.3% in 02/2021 continue Metformin (3) Hyperlipidemia: - cont. home on statin (4) Hypertension: continue Lisinopril and Metoprolol Anxiety - cont. home Buspar d/c home ff up with PCP 1 week ff up with GenSurgery 1-2 weeks Plan plan of care discussed with patient and her family at bedside in detail and at length all questions answered they are understanding, agreeable, comfortable with the plan of care Discharge Exam General- oriented x 3, not in distress, speaks in sentences with no effort or accessory muscle use Eyes- anicteric Neck- no JVD Lungs- clear BS bilaterally, no rales/wheezes Heart- normal rate, regular rhythm; no murmurs Abdomen- normal bowel sounds, nondistended, soft, no tenderness Extremities- no pretibial edema, no calf tenderness Neuro- alert, oriented x 3; no gross focal neurologic deficits Skin- warm & dry Updated Medication List Medication Instructions Recorded Confirmed Type albuterol sulfate 90 mcg/actuation 2 puff inhalation QID PRN 02/26/18 01/15/22 History aerosol inhaler (ProAir HFA) Shortness Of Breath multivitamin 1 tab PO DAILY 02/26/18 01/15/22 History omega 3-ewh-sgj-fish oil 1,000 mg 1,000 mg PO DAILY 02/26/18 01/15/22 History (120 mg-180 mg) capsule (Fish Oil) simvastatin 20 mg tablet 20 mg PO HS 02/26/18 01/15/22 History calcium citrate 315 mg-vitamin D3 1 tab PO DAILY 07/10/18 01/15/22 History 5 mcg (200 unit) tablet (Calcium Citrate + D) fluticasone propionate 50 2 spray intranasal DAILY PRN 07/10/18 01/15/22 History mcg/actuation nasal ALLERGY RELIEF spray,suspension metformin 500 mg tablet 1,000 mg PO BID 07/10/18 01/15/22 History omeprazole 40 mg capsule,delayed 40 mg PO QAM 07/10/18 01/15/22 History release peg 400-propylene glycol (PF) 0.4 1 drp ophthalmic (eye) BID PRN Dry 07/10/18 01/15/22 History %-0.3 % eye drops in a dropperette Eyes (Systane (PF)) buspirone 10 mg tablet 10 mg PO .COMPLEX 01/10/20 01/15/22 History lifitegrast 5 % eye drops in a 1 drp ophthalmic (eye) BID 01/10/20 01/15/22 History dropperette (Xiidra) magnesium oxide 400 mg (241.3 mg 400 mg PO DAILY 01/10/20 01/15/22 History magnesium) tablet metoprolol succinate 50 mg 50 mg PO BID 01/10/20 01/15/22 History tablet,extended release 24 hr riboflavin (vitamin B2) 400 mg 400 mg PO DAILY 01/10/20 01/15/22 History tablet amoxicillin 875 mg-potassium 1 tab PO BID 10 days #20 tabs 01/24/22 Rx clavulanate 125 mg tablet oxycodone-acetaminophen 5 mg-325 1 tab PO Q6H PRN pain #10 tabs 01/24/22 Rx mg tablet Hospital Stay Data Consultations 01/15/22 15:02 ED Decision to Admit Stat 01/15/22 15:41 Consult General Surgery Routine 01/21/22 11:27 Consult Infectious Diseases Routine Procedures Performed Operation Date: 01/16/22 11:00 Actual Procedures p Arlene Rectal Abscess Incison and Drainage(Not Applicable) - Julio Watkins MD Operation Date: 01/22/22 09:00 Actual Procedures p Incision and Drainage Perianal Abscess(Not Applicable) - Julio Watkins MD Diagnostic Imagining Performed Pelvis CT 01/21/22 08:48 CT SCAN OF THE PELVIS WITH IV CONTRAST CLINICAL HISTORY: Follow up perianal abscess status post drainage. COMPARISON STUDY: Pelvic CT scans dated 01/15/2022 and 02/26/2018. TECHNIQUE: Following the IV administration of 94 cc of Optiray 350, CT scan of the pelvis is performed from the pelvic inlet to the proximal femora. Images reviewed in the axial, sagittal, and coronal planes. IV contrast was administered without complication. A dose lowering technique was utilized adhering to the principles of ALARA. CT DOSE: 362.31 mGy.cm FINDINGS: The bladder is normal as visualized. The uterus is surgically absent. No adnexal lesion is seen. There is no pelvic sidewall or inguinal lymphadenopathy. The imaged loops of small bowel and colon show no evidence of obstruction. There is mild diverticulosis of the imaged colon without CT evidence of acute diverticulitis. A normal appendix is seen in the right lower quadrant. No intraperitoneal free air or free fluid is seen in the pelvis. There is evidence of previous ventral hernia repair. Again seen is significant inflammation around the perianal soft tissues, greatest posteriorly. There is an irregular thick- walled peripherally enhancing multiloculated perianal fluid collection again seen posteriorly at the 5:00 to 7:00 position. This has increased in size from previous, measuring 4.4 x 3.9 x 3.3 cm in aggregate dimension as seen on axial image #219. This is located just below the levator musculature. No fistulous tract is clearly seen. No perineal soft tissue gas is noted. The skeletal structures appear intact. No lytic or blastic lesion is seen. Postsurgical change in noted in the lumbar spine. The regional musculature is normal and symmetric. IMPRESSION: There is an enlarging perianal abscess with surrounding cellulitis as detailed above. ACT 112: Negative or not required by law. Electronically signed by: David Cote M.D. 01/21/2022 10:57 AM Pending Results Patient Have Any Pending Studies at Discharge: No Discharge Instructions Given to Patient (Per Discharging Provider) PLEASE REFER TO YOUR NEW MEDICATION LIST AND FOLLOW INSTRUCTIONS CAREFULLY. YOUR NEW MEDICATIONS INCLUDE: AUGMENTIN- antibiotic for perirectal abscess PERCOCET- as needed for severe pain PLEASE DRINK PLENTY OF WATER. PLEASE TAKE PROBIOTIC (RENEW LIFE RECOMMENDED) FOR AT LEAST 1 MONTH. PLEASE CALL YOUR PRIMARY CARE PHYSICIAN OR RETURN TO THE ER IF WITH WORSENING OF SYMPTOMS, INCLUDING PAIN, BLEEDING, DISCHARGE ON THE SURGICAL SITE, LOOSE BOWEL MOVEMENTS OF MORE THAN 3X A DAY, FEVER/CHILLS, WEAKNESS, ETC FOLLOW UP WITH PRIMARY CARE PHYSICIAN OUTLINED ABOVE. FOLLOW UP WITH GENERAL SURGEON OUTLINED ABOVE. Total Time Total Time Spent Total Time Spent (In Minutes): > 30 minutes
== END 2022-01-24 18:22 | disposition home or self-care (01) | DRG 345 ==
LOC: 2W 10:38 → ED 10:38 → 2W 18:10 → SUATTDRO 01-16 20:27 → 3E 01-22 15:35